=== PATIENT | male | born 1945 | race Caucasian/White ===

== ENCOUNTER → 2016-08-05 | Day surgery (SDC) | payer OTHER ==
[~2016-08-05] VITALS: Ht 177.8 cm; Wt 95.3 kg
[~2016-08-05] MED LIST: AUGMENTIN 875 M1 TAB PO; AUGMENTIN 875875 MG PO; BEPREVE10 ML OPH; CEPHALEXIN500 M3 PO; COLACE100 MG PO; CYANOCOBAL1000 MCG/2 IM; ESCITALOPRAM10 MG PO; FINASTERIDE5 MG PO; HYDROCODONE/ACE1 TA1 PO; HYDROXYZINE HCL25 M2 PO; LEVAQUIN500 MG PO; LEVOTHYROXINE0.15 M1 PO; LEVOTHYROXINE150 MCG PO; MULTI-DAY VITA1 EACH PO; MUPIROCIN22 GM TOP; NASONEX17 GM NASB; SIMVASTATIN40 M1 PO; SIMVASTATIN40 MG PO; TAMIFLU 75MG75 MG PO; TESSALON PERLE100 M1 PO; TESSALON PERLE100 MG PO; TOBRAMYCIN 5 ML5 ML OD; VIBRAMYCIN100 MG PO; VITAMIN D250000 UNIT PO; ZITHROMAX250 M2 PO; ZOFRAN 4 MG TABL4 MG PO
--- NOTE | 2016-08-07 11:45 | Operative Report ---
Operative/Inv Procedure Report Surgery Date: 08/05/16 Name of Procedure: Preperitoneal laparoscopic mesh repair of left inguinal hernia Pre-Operative Diagnosis: Lifting all hernia Post-Operative Diagnosis: Same, direct Estimated Blood Loss: scant Surgeon/Sybase Developer: JACKIE OLMEDO,ELLIOT SHI Anesthesia: general endotracheal tube Operative/Procedure Note Note: Patient was positioned supine on the table. After successful induction of general anesthesia the inguinal and surrounding areas were clipped prepped and draped in the usual sterile fashion. After injection of local anesthetic at the bottom of the umbilicus off the midline to the left, a 1 1/2 cm curved incision was made with a 15 blade, then deepened through Jose Francisco's fascia, sweeping off the rectus sheath. A horizontal 1-1/2 cm incision was made between the fibers, elevating these edges with 0 Vicryl stay sutures. Then retracting the muscle laterally, clearing off the posterior rectus sheath, this space is developed down the midline to the pubis sequentially, with an S retractor, a peanut dissector, then the balloon-camera device, inflating it 30-40 pumps while watching how it opens up the space, keeping the epigastrics up. The balloon is then replaced with a 10 mm Nava trocar, inserted, shortened, and secured with the stay sutures, gas turned on to 12 not 15 mm. Then two 5 mm trochars are inserted in the midline just below the camera, spaced by approximately 3 cm. Using mostly blunt dissection with peanuts to define the anatomy, first Ricardo's ligament is swept off medially, checking the medial spaces, direct and femoral. There was an obvious direct defect. Then briefly skipping over the area of the iliac fat pad, we developed the iliopubic tract out laterally to the iliac crest. Then we returned to the area of the fat pad where the lip of peritoneum and the cord structures are adherent, coursing up into an attenuated deep ring. The cord structures form a triangle with the vas approaching medially and the main vessels approaching laterally, with the apex at the deep ring. The cord is also from the underlying iliac fat. Once the hernia sac is from the cord structures down to the base of this "triangle," a Parietex sided mesh with the suture, is marked and stuffed down the camera trocar, then unfurled in a systematic fashion, first with the smaller leaflet passing behind the cord structures, until the flap covers the epigastrics, covering the deep ring, then the larger leaflet is released from the suture, double-covering the smaller one, but also extends laterally out to the iliac crest, medially over Ricardo's ligament, and superiorly towards the camera. There is a third part of the mesh, that covers the iliac fat pad like a skirt. The mesh was adjusted back and forth so that the keyhole is centered around the cord, lays flat and the edges are not curling. A trial run of letting the gas escape a little bit to see how the mesh would lay as the peritoneum comes back down is done, then when we' re satisfied, we let rest of the gas escape, pulling out the instruments and trochars. The fascia is closed with a ahmhys-qe-feuuw 0 Vicryl suture, tying the stay sutures on top. Then we closed the 3 skin incisions with interrupted 4-0 Monocryl, 3 for the umbilical, one each for the smaller ones, followed by Mastisol, Steri-Strips and Band-Aids. Overall estimated blood loss was minimal, lap and sponge counts were correct, wound expectancy was clean, IV fluids crystalloid, complications none, patient tolerated the procedure well, did not significantly raphael during extubation and was returned to the recovery room in satisfactory condition.
== END ==
LOC: STS 06-24 07:00
DX: K40.90 Unilateral inguinal hernia, without obstruction or gangrene, not specified as recurrent (principal); E03.9 Hypothyroidism, unspecified
CPT/HCPCS: C1781; C9399; J0131; J0690; J1885; J2250; J2405

== ENCOUNTER 2016-08-08 13:18 | Emergency (ER) | payer OTHER ==
[~2016-08-08 13:18] MED LIST changes: -BEPREVE10 ML OPH; -CEPHALEXIN500 M3 PO; -CYANOCOBAL1000 MCG/2 IM; -LEVOTHYROXINE150 MCG PO; -MULTI-DAY VITA1 EACH PO; -MUPIROCIN22 GM TOP; -NASONEX17 GM NASB; -SIMVASTATIN40 M1 PO; -TESSALON PERLE100 M1 PO; -VIBRAMYCIN100 MG PO; -VITAMIN D250000 UNIT PO; -ZITHROMAX250 M2 PO
--- NOTE | 2016-08-08 14:37 | ED GI/GU/ABDOMINAL COMPLAINT ---
History of Present Illness General Chief Complaint: Abdominal Pain/Flank Pain Stated Complaint: CONSTIPATION/ABD PAIN Vital Signs & Intake/Output Vital Signs & Intake/Output Vital Signs Date Time Temp Pulse Resp B/P Pulse O2 O2 Flow FiO2 Ox Delivery Rate 08/08 1325 97.2 68 20 171/89 98 Room Air Allergies Coded Allergies: NO KNOWN ALLERGIES (10/09/15) Reconcile Medications Azithromycin (Zithromax) 250 MG TABLET 1 DP PO AD uri 2 the first day followed by 1 for days 2-5 Benzonatate (Tessalon Perle) 100 MG CAPSULE 1 CAP PO TID PRN cough Levothyroxine Sodium 0.15 MG TAB 1 TAB PO DAILY AC THYROID (Reported) Simvastatin 40 MG TABLET 1 TAB PO QPM CHOLESTEROL (Reported) Triage Note: PT PRESENTS TO ER WITH ABDOMINAL PAIN AND C/O OF CONSTIPATION. PT STATES HE HAS NOT HAD A BOWEL MOVEMENT SINCE THURSDAY BUT ON THURSDAY HERNIA SURGERY AND WAS TAKEN VICODIN FOR THE PAIN. PT STATES HE HAS TAKEN MILK OF MAGNESIA, STOOL SOFTNER, AND PRUNE JUICE WITH NO BOWEL MOVEMENT. (JANI OLMEDO,JOSSELINE) General Source: patient Exam Limitations: no limitations Triage Nurses Notes Reviewed? yes HPI: This is a 71-year-old male presented to the [facility] emergency department with chief complaint of constipation since this Thursday. Of note patient was operated on 08/05/2016-laparoscopic mesh repair of left inguinal hernia as an outpatient by Panchito Lewis MD. He was discharged on the same day after surgery. He was given Vicodin tablets which he took once and he was on Tylenol tablets since then. He reports severe constipation for 5 days. Couldnt pass his bowels. He took lkvf-pna-qytruby stools softeners with no relief. He took milk of magnesia. However couldnt pass any bowels. He even took prune juice. He denied any abdominal pain, nausea, vomiting, fever or chills. He reported mild discomfort and bloating sensation. He is not passing gases. The surgical site was clean with no drainage, no pus, no infection. (LALO OLMEDO,[facility]) Past History Travel History Traveled to [place] past 21 day No Medical History Neurological: NONE EENT: cataracts Cardiovascular: hyperlipidemia Respiratory: NONE Gastrointestinal: NONE Hepatic: NONE Renal: ENLARGED PROSTATE Musculoskeletal: TIBIA FX TORN ROTATOR CUFF Psychiatric: depression Endocrine: hypothyroidism Blood Disorders: NONE Cancer(s): NONE History of MRSA: No History of VRE: No History of CDIFF: No Surgical History Surgical History: non-contributory Psychosocial History What is your primary language Spanish Tobacco Use: Never used (JANI OLMEDO,JOSSELINE) Medical History Any Pertinent Medical History? see below for history Family History Hx Contributory? Yes (CONSTANCE MAY MD) Review of Systems Review of Systems Constitutional: Denies: chills, diaphoresis, fever, malaise, weakness, unexplained weight loss. Respiratory: Denies: cough, orthopnea, short of breath. Cardiovascular: Denies: chest pain, edema, palpitations. GI: Reports: abdominal pain, bloating, constipation, distention. Denies: diarrhea, melena, nausea, vomiting. Genitourinary: Denies: frequency, urgency. Musculoskeletal: Denies: back pain, joint pain. (CONSTANCE MAY MD) Physical Exam Physical Exam General Appearance: well developed/nourished, no apparent distress, alert, awake Head: atraumatic, normal appearance Neck: normal inspection Respiratory: normal breath sounds Cardiovascular: regular rate/rhythm Gastrointestinal: normal bowel sounds, soft, non-tender Core Measures ACS in differential dx? No Severe Sepsis Present: No Septic Shock Present: No (CONSTANCE MAY MD) Progress Radiology Impression: PATIENT: YVON RICE PRESENT AGE: 71 PATIENT ACCOUNT NO: [id number] : 43 LOCATION: [facility] ORDERING PHYSICIAN: JOSSELINE GUNTER MD SERVICE DATE: 08/08/16 EXAM TYPE: RAD - XRY-ABD MULTI VIEW W/PA CHEST EXAMINATION: XR ABDOMEN WITH PA CHEST CLINICAL INDICATION: Constipation COMPARISON: None. TECHNIQUE: PA chest. Flat and upright abdomen FINDINGS: Small to moderate volume of stool throughout colon. No dilated bowel loop. No significant air-fluid levels on the upright view. Nonobstructive bowel pattern. No intra-abdominal radiopaque nature calculi. Multiple calcified fecaliths of the lower pelvis. PA view of chest is normal. Lungs are clear. No pulmonary vascular congestion or pleural effusion. Cardiac and mediastinal contours are normal. IMPRESSION: Small to moderate volume of stool scattered throughout colon. Nonobstructive bowel pattern. DICTATED BY: LAM MCNALLY MD DATE/TIME DICTATED:08/08/161634 PRODUCT SUPPORT ENGINEER :LUIS DATE/TIME TRANSCRIBED:08/08/161634 CONFIDENTIAL, DO NOT COPY WITHOUT APPROPRIATE AUTHORIZATION. <Electronically signed in Other Vendor System> SIGNED BY: LAM MCNALLY MD 08/08/16 1642 (JOSSELINE GUNTER MD) Differential Diagnosis: bowel obstruction, SBO Plan of Care: Current Medications Sig/Enriqueta Start time Last Medication Dose Stop Time Status Admin Polyethylene Glycol 1 GAL ONCE ONE 08/08 1700 AC (Golytely Liq 4000 08/08 1701 Ml) Diagnostic Imaging: Viewed by Me: Radiology Read. Discussed w/RAD: Radiology Read. Radiology Impression: no acute abnormality Initial ED EKG: none (CONSTANCE MAY MD) Departure Departure Time of Disposition: 1701 Condition: Stable Referrals: JOSE MANUEL BARNETT MD (PCP/Family) Departure Forms: Customer Survey General Discharge Information PA/ACCOUNT AUDITOR Co-Sign Statement Statement: ED Attending supervision documentation- [X] I saw and evaluated the patient. I have also reviewed all the pertinent lab results and diagnostic results. I agree with the findings and the plan of care as documented in the PA's/ACCOUNT AUDITOR's documentation. [X] I have reviewed the ED Record and agree with the PA's/ACCOUNT AUDITOR's documentation. [] Additions or exceptions (if any) to the PAs/ACCOUNT AUDITOR's note and plan are summarized below: [] (JOSSELINE GUNTER MD) Departure Disposition: HOME OR SELF CARE Clinical Impression Primary Impression: Constipation Additional Instructions: Clear liquid diet and broth Low residue diet Follow-up with the Panchito Lewis MD. GoLABIODUNLY-take one cup per hour prune juice Return to emergency room if constipation persists for next 48 hours, abdominal distention, nausea, vomiting. (CONSTANCE MAY MD) Critical Care Note Critical Care Note Critical Care Time: 30-74 min (CONSTANCE MAY MD) ED Attending Observation Initial Observation Note: I have seen and personally examined YVON RICE on 08/08/16 at 1657. I agree with the current emergency department documentation. The disposition (admission or discharge) is uncertain at this time, he needs a period of observation for the following reason(s): The ED Nurse caring for this patient has been personally informed as to what the patient is being observed for. Observation Re-Evaluation: I have reevaluated YVON RICE on 08/08/16 at 1700. The physical findings that support the continued need to observe this patient include . (LALO OLMEDO,[facility])
--- NOTE | 2016-08-08 16:42 | RADIOLOGY REPORT ---
EXAMINATION: XR ABDOMEN WITH PA CHEST CLINICAL INDICATION: Constipation COMPARISON: None. TECHNIQUE: PA chest. Flat and upright abdomen FINDINGS: Small to moderate volume of stool throughout colon. No dilated bowel loop. No significant air-fluid levels on the upright view. Nonobstructive bowel pattern. No intra-abdominal radiopaque nature calculi. Multiple calcified fecaliths of the lower pelvis. PA view of chest is normal. Lungs are clear. No pulmonary vascular congestion or pleural effusion. Cardiac and mediastinal contours are normal. IMPRESSION: Small to moderate volume of stool scattered throughout colon. Nonobstructive bowel pattern.
[2016-08-08 17:07] VITALS: BP 136/85
== END 2016-08-08 17:08 ==
LOC: ERH 13:18
DX: K59.00 Constipation, unspecified (principal)
CPT/HCPCS: 74022

== ENCOUNTER 2016-08-09 00:58 | Emergency (ER) | payer OTHER ==
[~2016-08-09] VITALS: Ht 210.8 cm; Wt 94.8 kg
--- NOTE | 2016-08-09 01:13 | ED GI/GU/ABDOMINAL COMPLAINT ---
History of Present Illness General Chief Complaint: General Adult Stated Complaint: C/O CONSTIPATION S/P "PROCEDURE" 3 DAYS AGO Source: patient Exam Limitations: no limitations Vital Signs & Intake/Output Vital Signs & Intake/Output Vital Signs Date Time Temp Pulse Resp B/P Pulse O2 O2 Flow FiO2 Ox Delivery Rate 08/09 0112 99.5 70 20 146/85 95 Room Air Allergies Coded Allergies: NO KNOWN ALLERGIES (10/09/15) Reconcile Medications Levothyroxine Sodium 0.15 MG TAB 1 TAB PO DAILY AC THYROID (Reported) Simvastatin 40 MG TABLET 1 TAB PO QPM CHOLESTEROL (Reported) Triage Note: "I HAVEN'T MOVED MY BOWELS SINCE THURSDAY" PT STATES HE HAS BEEN TAKING STOOL SOFTENERS AND NO PROGRESS. PT WAS HERE YESTERDAY FOR SAME REASON AND WAS GIVEN GOLYTELY. PT DENIES ABD PAIN JUST SOME SORENESS Triage Nurses Notes Reviewed? yes Onset: Gradual Duration: day(s): Timing: recent history Quality/Severity: cramping Location: generalized abdomen Radiation: no radiation Activities at Onset: post-op Prior Abdominal Problems: recent surgery Modifying Factors: Worsens With: other (constipation). Associated Symptoms: abdominal pain HPI: 71 yo gentleman pod #3 of a laparoscopic left inguinal hernia repair, presents with abdominal distension, discomfort, and constipation. He notes that he was seen yesterday in the ED, had benign xrays, and was sent home with [employer]. "I drank half of the golytely and I still haven't gone to the bathroom... I've tried everything... milk of magnesia, prune juice, laxative pills... everything." Past History Medical History Any Pertinent Medical History? see below for history Neurological: NONE EENT: cataracts Cardiovascular: hyperlipidemia Respiratory: NONE Gastrointestinal: NONE Hepatic: NONE Renal: ENLARGED PROSTATE Musculoskeletal: TIBIA FX TORN ROTATOR CUFF Psychiatric: depression Endocrine: hypothyroidism Blood Disorders: NONE Cancer(s): NONE History of MRSA: No History of VRE: No History of CDIFF: No Surgical History Surgical History: non-contributory Psychosocial History What is your primary language Czech Family History Hx Contributory? No Review of Systems Review of Systems Constitutional: Reports: no symptoms. EENTM: Reports: no symptoms. Respiratory: Reports: no symptoms. Cardiovascular: Reports: no symptoms. GI: Reports: no symptoms. Genitourinary: Reports: no symptoms. Musculoskeletal: Reports: no symptoms. Skin: Reports: no symptoms. Neurological/Psychological: Reports: no symptoms. Hematologic/Endocrine: Reports: no symptoms. Immunologic/Allergic: Reports: no symptoms. All Other Systems: Reviewed and Negative Physical Exam Physical Exam General Appearance: well developed/nourished, no apparent distress Head: atraumatic, normal appearance Eyes: Bilateral: normal appearance. Ears, Nose, Throat, Mouth: hearing grossly normal Neck: normal inspection, supple, full range of motion, normal alignment Respiratory: normal breath sounds, chest non-tender, no respiratory distress, quiet respiration, lungs clear Cardiovascular: regular rate/rhythm Gastrointestinal: normal bowel sounds, soft, mild distension, mild tenderness around umbilical and lower abdominal surgical scars which appear clean, dry, intact. Core Measures ACS in differential dx? No Severe Sepsis Present: No Septic Shock Present: No Progress Differential Diagnosis: bowel obstruction, constipation Plan of Care: Orders Procedure Date/time Status Add-on Test (ER Only) 08/09 125 Active LACTIC ACID 08/09 119 Complete TROPONIN LEVEL 08/09 104 Complete LIPASE 08/09 104 Complete HEPATIC FUNCTION PANEL 08/09 104 Complete CBC WITHOUT DIFFERENTIAL 08/09 104 Complete BASIC METABOLIC PANEL 08/09 104 Complete AMYLASE 08/09 104 Complete EKG 08/09 104 Active Laboratory Tests 08/09/16 0120: Anion Gap 9, Estimated GFR > 60, BUN/Creatinine Ratio 10.0, Glucose 100 H, Lactic Acid 0.7, Calcium 9.2, Total Bilirubin 1.2, Direct Bilirubin 0.4, AST 38, ALT 43, Alkaline Phosphatase 74, Troponin I 0.01, Total Protein 7.7, Albumin 4.5 , Amylase 36, Lipase 49, CBC w Diff NO MAN DIFF REQ, RBC 4.30 L, MCV 89.8, MCH 31.0, RDW 13.4, MPV 8.4, Gran % 58.4, Lymphocytes % 22.2, Monocytes % 13.2 H, Eosinophils % 5.2 H, Basophils % 1.0, Absolute Granulocytes 3.9, Absolute Lymphocytes 1.5, Absolute Monocytes 0.9 H, Absolute Eosinophils 0.4, Absolute Basophils 0.1, PUBS MCHC 34.5 Diagnostic Imaging: Viewed by Me: CT Scan. Discussed w/RAD: CT Scan. Radiology Impression: abd/pelvic ct... free air consistent with recent surgery, otherwise benign. Initial ED EKG: normal axis, normal intervals, normal p-waves, normal QRS complex, normal sinus rhythm Comments: PATIENT: YVON RICE PRESENT AGE: 71 PATIENT ACCOUNT NO: [id number] : 43 LOCATION: [facility] ORDERING PHYSICIAN: EKLSEY HENDRICKSON MD SERVICE DATE: 08/09/16 EXAM TYPE: CAT - CT ABD & PELVIS W/O IV CONTRAS EXAMINATION: CT ABDOMEN AND PELVIS WITHOUT CONTRAST CLINICAL INFORMATION: Abdominal pain, recent left inguinal hernia repair COMPARISON: 10/09/2015 TECHNIQUE: Multidetector volumetric imaging was performed from the superior aspect of the liver through the pubic symphysis. Sagittal and coronal reformatted images were obtained on the technologist's workstation. DLP: 781.44 mGy-cm. FINDINGS: LUNG BASES: The visualized lung bases are unremarkable. Multiple foci of gas are noted in the pericardial fat bilaterally. LIVER, GALLBLADDER, AND BILIARY TREE: The liver is normal in size, shape, and attenuation. A subcentimeter hypoattenuating focus in segment IVb of the liver is unchanged, too small to characterize. No biliary ductal dilatation is present. The gallbladder is unremarkable with no evidence of radiopaque gallstones, gallbladder wall thickening, or obvious pericholecystic inflammatory changes. PANCREAS: Partial fatty atrophy is noted. SPLEEN: Unremarkable. ADRENAL GLANDS: Unremarkable. KIDNEYS AND URETERS: The kidneys are normal in size, shape, and attenuation. No hydronephrosis, hydroureter, or calculi seen. BLADDER: Unremarkable. GASTROINTESTINAL TRACT: A small hiatal hernia is noted. No evidence of bowel obstruction. No abnormal bowel wall thickening is seen. The appendix is suspected to be collapsed. There are multiple foci of free air in the anterior abdomen as well as tracking along the anterior abdominal wall. A few scattered foci of gas are also noted in the right retroperitoneum as well as in the right inguinal canal. ABDOMINAL WALL: Bilateral inguinal hernias, containing fat on the right and some fluid in the left. LYMPH NODES: Normal. VASCULAR: Scattered atherosclerotic calcifications are present. PELVIC VISCERA: Unremarkable. OSSEOUS STRUCTURES: Degenerative changes are noted in the spine. IMPRESSION: 1. Multiple foci of pneumoperitoneum, with gas also seen in the lower mediastinum, anterior abdominal wall, and right retroperitoneum. Per discussion with the ordering physician, patient is status post recent left inguinal hernia repair. A small amount of fluid is present in the left inguinal canal. 2. Small hiatal hernia. This was discussed with KELSEY HENDRICKSON on 08/09/2016 2:59 AM. DICTATED BY: MIRIAM MARIANO MD DATE/TIME DICTATED:08/09/16247 SAMPLING EXPERT:LUIS DATE/TIME TRANSCRIBED:08/09/16247 CONFIDENTIAL, DO NOT COPY WITHOUT APPROPRIATE AUTHORIZATION. <Electronically signed in Other Vendor System> SIGNED BY: MIRIAM MARIANO MD 08/09/16 0305 Departure Departure Disposition: HOME OR SELF CARE Condition: Stable Clinical Impression Primary Impression: Constipation Referrals: JOSE MANUEL BARNETT MD (PCP/Family) Departure Forms: Customer Survey General Discharge Information Comments pt resting comfortably in the ED. Lactic acid negative. Other labs benign. Pt safe for discharge. Close follow up encouraged.
[2016-08-09 01:32] LABS: ABSOLUTE BASOPHIL COUNT 0.1 /CUMM (0.0-0.2); ABSOLUTE EOSINOPHIL COUNT 0.4 /CUMM (0.0-0.7); ABSOLUTE GRANULOCYTE CT 3.9 /CUMM (1.4-6.5); ABSOLUTE LYMPH COUNT 1.5 /CUMM (1.2-3.4); ABSOLUTE MONOCYTE COUNT 0.9 /CUMM (0.10-0.60); EOSINOPHIL % 5.2 % (0-5); GRANULOCYTE % 58.4 % (42.2-75.2); HEMATOCRIT 38.6 % (42-52); MEAN CORPUSCULAR HGB CONC 34.5 G/DL (33.0-37.0); MEAN CORPUSCULAR VOLUME 89.8 FL (80.0-94.0); MEAN PLATELET VOLUME 8.4 FL (7.4-10.4); PLATELET COUNT 252 /CUMM (130-400); RBC DISTRIBUTION WIDTH 13.4 % (11.5-14.5); WHITE BLOOD CELL COUNT 6.8 /CUMM (4.8-10.8)
--- NOTE | 2016-08-09 03:05 | CT SCAN REPORT ---
EXAMINATION: CT ABDOMEN AND PELVIS WITHOUT CONTRAST CLINICAL INFORMATION: Abdominal pain, recent left inguinal hernia repair COMPARISON: 10/09/2015 TECHNIQUE: Multidetector volumetric imaging was performed from the superior aspect of the liver through the pubic symphysis. Sagittal and coronal reformatted images were obtained on the technologist's workstation. DLP: 781.44 mGy-cm. FINDINGS: LUNG BASES: The visualized lung bases are unremarkable. Multiple foci of gas are noted in the pericardial fat bilaterally. LIVER, GALLBLADDER, AND BILIARY TREE: The liver is normal in size, shape, and attenuation. A subcentimeter hypoattenuating focus in segment IVb of the liver is unchanged, too small to characterize. No biliary ductal dilatation is present. The gallbladder is unremarkable with no evidence of radiopaque gallstones, gallbladder wall thickening, or obvious pericholecystic inflammatory changes. PANCREAS: Partial fatty atrophy is noted. SPLEEN: Unremarkable. ADRENAL GLANDS: Unremarkable. KIDNEYS AND URETERS: The kidneys are normal in size, shape, and attenuation. No hydronephrosis, hydroureter, or calculi seen. BLADDER: Unremarkable. GASTROINTESTINAL TRACT: A small hiatal hernia is noted. No evidence of bowel obstruction. No abnormal bowel wall thickening is seen. The appendix is suspected to be collapsed. There are multiple foci of free air in the anterior abdomen as well as tracking along the anterior abdominal wall. A few scattered foci of gas are also noted in the right retroperitoneum as well as in the right inguinal canal. ABDOMINAL WALL: Bilateral inguinal hernias, containing fat on the right and some fluid in the left. LYMPH NODES: Normal. VASCULAR: Scattered atherosclerotic calcifications are present. PELVIC VISCERA: Unremarkable. OSSEOUS STRUCTURES: Degenerative changes are noted in the spine. IMPRESSION: 1. Multiple foci of pneumoperitoneum, with gas also seen in the lower mediastinum, anterior abdominal wall, and right retroperitoneum. Per discussion with the ordering physician, patient is status post recent left inguinal hernia repair. A small amount of fluid is present in the left inguinal canal. 2. Small hiatal hernia. This was discussed with KELSEY HENDRICKSON on 08/09/2016 2:59 AM.
[2016-08-09 03:41] VITALS: BP 146/84
[2016-08-10] MEDS ORDERED: ZITHROMAX250 M2 PO (22:48)
[2016-08-10] MEDS ORDERED: TESSALON PERLE100 M1 PO (22:48)
== END 2016-08-09 03:42 ==
LOC: ERH 00:58
PROVIDERS: Pediatrics
DX: K59.00 Constipation, unspecified (principal); R10.84 Generalized abdominal pain
CPT/HCPCS: 74176; 93005; 93010

== ENCOUNTER 2016-08-10 22:00 | Emergency (ER) | payer OTHER ==
[~2016-08-10] VITALS: Ht 180.3 cm; Wt 94.8 kg
[2016-08-10 22:03] VITALS: BP 188/68
--- NOTE | 2016-08-10 22:10 | ED INFLUENZA/URI COMPLAINT ---
History of Present Illness General Chief Complaint: General Adult Stated Complaint: " I DON'T FEEL GOOD,COUGHING AND BODY ACHES" Source: patient, old records Exam Limitations: no limitations Vital Signs & Intake/Output Vital Signs & Intake/Output Vital Signs Date Time Temp Pulse Resp B/P Pulse O2 O2 Flow FiO2 Ox Delivery Rate 08/103 98.5 74 18 188/68 98 Room Air Allergies Coded Allergies: NO KNOWN ALLERGIES (10/09/15) Reconcile Medications Azithromycin (Zithromax) 250 MG TABLET 1 DP PO AD uri 2 the first day followed by 1 for days 2-5 Benzonatate (Tessalon Perle) 100 MG CAPSULE 1 CAP PO TID PRN cough Levothyroxine Sodium 0.15 MG TAB 1 TAB PO DAILY AC THYROID (Reported) Simvastatin 40 MG TABLET 1 TAB PO QPM CHOLESTEROL (Reported) Triage Note: REPORTS GENERALIZED BODY ACHES AND COUGHING X 24 HRS AND WORSENING. COUGH IS NON PRODUCTIVE, DENIED FEVER. Triage Nurses Notes Reviewed? yes Onset: Abrupt Duration: day(s): (1), constant Timing: recent history Severity: mild, moderate Severity Numbers: 5 No Modifying Factors: none Associated Symptoms: cough HPI: 71-year-old male presents to emergency room complaining of a one-day history of a nonproductive cough associated generalized malaise. The patient history is significant and they had a inguinal hernia repair earlier this week. The patient has been seen here twice in the past 3 days due to constipation and abdominal pain. He states he's had a bowel movement since being discharged 2 nights ago and that this cough began this morning. He denies any shortness of breath chest pain fever chills nausea vomiting sore throat congestion or pain. No sick contacts with similar symptoms (CARISSA CARTAGENA) Past History Travel History Traveled to [place] past 21 day No Medical History Any Pertinent Medical History? see below for history Neurological: NONE EENT: cataracts Cardiovascular: hyperlipidemia Respiratory: NONE Gastrointestinal: NONE Hepatic: NONE Renal: ENLARGED PROSTATE Musculoskeletal: TIBIA FX TORN ROTATOR CUFF Psychiatric: depression Endocrine: hypothyroidism Blood Disorders: NONE Cancer(s): NONE History of MRSA: No History of VRE: No History of CDIFF: No Surgical History Surgical History: non-contributory Psychosocial History What is your primary language Malay Tobacco Use: Never used Family History Hx Contributory? No (CARISSA CARTAGENA) Review of Systems Review of Systems Constitutional: Reports: see HPI. All Other Systems: Reviewed and Negative Comments Review of systems: See HPI, All other systems negative. Constitutional, no chills no fever, no malaise HEENT: No visual changes no sore throat no congestion, no ear pain Cardiovascular: No chest pain , no palpitation , no orthopnea no ankle swelling Skin, no rashes, no change in skin Respiratory: No dyspnea cough no sputum no hemoptysis GI: No nausea no vomiting, no diarrhea,constipation : No dysuria No hematuria, no frequency, no discharge Muscle skeletal: No joint pain, no joint swelling, no back pain Neurologic: No numbness no headache Psych: No stress Heme/endocrine: No bruising no bleeding Immunology: No lymphadenopathy (CARISSA CARTAGENA) Physical Exam Physical Exam General Appearance: well developed/nourished, alert, awake, comfortable Ears, Nose, Throat: normal ENT inspection, moist mucous membrane, hearing grossly normal, Tympanic normal, pharynx normal Comments: Well-developed well-nourished person in no acute distress Head/Face: Atraumatic, no maxillary/frontal sinus tenderness, no facial swelling Eyes: PERRL, EOMI, no conjunctival injection. No nystagmus Ear:External auditory canal and Tympanic membranes clear, no erythema, no FB. Nose: atraumatic.Normal inspection Throat: Moist mucous membranes.Pharynx normal. No pharyngeal erythema/exudate seen. No stridor/drooling or assymetry. No swelling or edema. Neck: Supple, no lymphadenopathy, FROM Back: Nontender, no CVA tenderness. Full range of motion Cardiovascular: Regular rate and rhythms no murmurs rubs Respiratory: Chest nontender.There were no bony deformities, no asymmetry. No respiratory distress. Patient speaking in full complete sentences. Breath sounds clear to auscultation bilaterally: NO W/R/R Abdomen: Soft, nontender nondistended Extremity: No edema, full range of motion of extremities Neuro: Alert oriented x3, motor sensory normal,There were no obvious focal neurologic abnormalities. Skin: No appreciable rash on exposed skin, skin is warm and dry. Psych: Mood and affect is normal, memory and judgment is normal. Core Measures Severe Sepsis Present: No Septic Shock Present: No (CARISSA CARTAGENA) Progress Differential Diagnosis: influenza, pneumonia, pharyngitis, sinusitis, BRONCHITIS Plan of Care: Orders Procedure Date/time Status RAPID VIRAL INFLUENZA A 08/10 2212 Complete Chest x-ray. Motor patient speaking in full complete sentences appears in no respiratory distress at this time I discussed with him his x-ray results. Prescription for Z-Nnamdi provided Tessalon Perles for coughing advise close follow-up with his primary care physician this week patient clinically appears well he's had an extensive workup 2 nights ago including benign labs CT of the abdomen and pelvis. He's had a subsequent bowel movement since being discharged from here yesterday. Patient feels comfortable this plan he will return at anytime sooner with any concerns (CARISSA CARTAGENA) Diagnostic Imaging: Viewed by Me: Radiology Read. Discussed w/RAD: Radiology Read. Radiology Impression: PATIENT: YVON RICE PRESENT AGE: 71 PATIENT ACCOUNT NO: [id number] : 43 LOCATION: [facility] ORDERING PHYSICIAN: CARISSA SHI SERVICE DATE: 08/10/16 EXAM TYPE: RAD - XRY-CHEST XRAY, PA AND LATERAL EXAMINATION: XR CHEST CLINICAL INFORMATION: Cough COMPARISON: Chest x-ray 10/09/2015 TECHNIQUE: PA and lateral views of the chest were obtained. FINDINGS: Lungs are clear. No pulmonary vascular congestion. No infiltrate or pleural effusion. The heart size is normal. The cardiac and mediastinal contours are normal. There are multilevel degenerative changes of dorsal spine. IMPRESSION: No acute abnormality of the chest. DICTATED BY: LAM MCNALLY MD DATE/TIME DICTATED:08/10/162238 SURGICAL SPECIALIST:LUIS DATE/TIME TRANSCRIBED:08/10/162238 CONFIDENTIAL, DO NOT COPY WITHOUT APPROPRIATE AUTHORIZATION. <Electronically signed in Other Vendor System> SIGNED BY: LAM MCNALLY MD 08/10/162242 Initial ED EKG: none (CARISSA CARTAGENA) Departure Departure Time of Disposition: 2246 Disposition: HOME OR SELF CARE Condition: Stable Clinical Impression Primary Impression: Bronchitis Referrals: JOSE MANUEL BARNETT MD (PCP/Family) Additional Instructions: Follow-up with your primary care physician this week. Z-Nnamdi as directed, Tessalon Perles for cough return anytime sooner with any concerns Departure Forms: Customer Survey General Discharge Information Prescriptions: Current Visit Scripts Azithromycin (Zithromax) 1 DP PO AD #6 TAB 2 the first day followed by 1 for days 2-5 Benzonatate (Tessalon Perle) 1 CAP PO TID PRN cough #21 CAP (CARISSA CARTAGENA) PA/TAR LEVELER Co-Sign Statement Statement: ED Attending supervision documentation- [] I saw and evaluated the patient. I have also reviewed all the pertinent lab results and diagnostic results. I agree with the findings and the plan of care as documented in the PA's/TAR LEVELER's documentation. x] I have reviewed the ED Record and agree with the PA's/TAR LEVELER's documentation. [] Additions or exceptions (if any) to the PAs/TAR LEVELER's note and plan are summarized below: [] (MADHAVI OLMEDO,KELSEY Wong) ED Attending Observation Initial Observation Note: I have seen and personally examined YVON RICE on 08/10/16 at 2221. I agree with the current emergency department documentation. The disposition (admission or discharge) is uncertain at this time, he needs a period of observation for the following reason(s): The ED Nurse caring for this patient has been personally informed as to what the patient is being observed for. (CARISSA CARTAGENA)
--- NOTE | 2016-08-10 22:43 | RADIOLOGY REPORT ---
EXAMINATION: XR CHEST CLINICAL INFORMATION: Cough COMPARISON: Chest x-ray 10/09/2015 TECHNIQUE: PA and lateral views of the chest were obtained. FINDINGS: Lungs are clear. No pulmonary vascular congestion. No infiltrate or pleural effusion. The heart size is normal. The cardiac and mediastinal contours are normal. There are multilevel degenerative changes of dorsal spine. IMPRESSION: No acute abnormality of the chest.
[2016-08-10] MEDS ORDERED: TESSALON PERLE100 M1 PO (22:48)
[2016-08-10] MEDS ORDERED: ZITHROMAX250 M2 PO (22:48)
== END 2016-08-10 22:56 ==
LOC: ERH 22:00
DX: J40 Bronchitis, not specified as acute or chronic (principal)
CPT/HCPCS: 87804; 87804-59

== ENCOUNTER 2016-09-14 18:38 | Emergency (ER) | payer OTHER ==
[~2016-09-14] VITALS: Ht 179.1 cm; Wt 95.3 kg
[~2016-09-14 18:38] MED LIST changes: +TESSALON PERLE100 M1 PO; +ZITHROMAX250 M2 PO
[2016-09-14 18:52] VITALS: BP 138/73
--- NOTE | 2016-09-14 19:05 | ED SKIN/ALLERGY COMPLAINT ---
History of Present Illness General Chief Complaint: Animal/Insect Bite Stated Complaint: TICK BITE Source: patient, old records Exam Limitations: no limitations Vital Signs & Intake/Output Vital Signs & Intake/Output Vital Signs Date Time Temp Pulse Resp B/P Pulse O2 O2 Flow FiO2 Ox Delivery Rate 09/14 1852 98.1 56 20 138/73 97 Room Air ED Intake and Output 09/15 0000 09/14 1200 Intake Total Output Total Balance Patient 210 lb Weight Allergies Coded Allergies: NO KNOWN ALLERGIES (09/14/16) Reconcile Medications Azithromycin (Zithromax) 250 MG TABLET 1 DP PO AD uri 2 the first day followed by 1 for days 2-5 Benzonatate (Tessalon Perle) 100 MG CAPSULE 1 CAP PO TID PRN cough Levothyroxine Sodium 0.15 MG TAB 1 TAB PO DAILY AC THYROID (Reported) Simvastatin 40 MG TABLET 1 TAB PO QPM CHOLESTEROL (Reported) Triage Note: TRIAGE: PT TO ER C/C ?TICK TO RT SIDE AFTER HIKING IN THE [employer] TODAY. Triage Nurses Notes Reviewed? yes Onset: Abrupt Duration: day(s): (1), constant Timing: single episode today Severity: mild Severity Numbers: 1 Location: torso No Modifying Factors: none Associated Symptoms: DENIES HPI: 71-year-old male presents complaining of a embedded tick to his RIGHT hip [place]. He denies pain or no modifying factors or associated symptoms no rashes to his skin. He denies any joint pain fever chills or no abdominal pain nausea vomiting diarrhea. The patient attempted to remove the tick however was unsuccessful so he came here.he states he is confident that the tick was not there yesterday. (CARISSA CARTAGENA) Past History Travel History Traveled to [place] past 21 day No Medical History Any Pertinent Medical History? 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 No (CARISSA CARTAGENA) Review of Systems Review of Systems Constitutional: Reports: see HPI. All Other Systems: Reviewed and Negative Comments Review of systems: See HPI, All other systems negative. Constitutional, no chills no fever, no malaise HEENT: no sore throat no congestion, no ear pain Cardiovascular: No chest pain , no palpitation Skin, no rashes, no change in skin Respiratory: No dyspnea no cough no sputum GI: No nausea no vomiting, no diarrhea : No dysuri Muscle skeletal: No joint pain, no back pain, no neck pain, Neurologic:, no headache Psych: No stress Heme/endocrine: No bruising no bleeding Immunology: No lymphadenopathy (CARISSA CARTAGENA) Physical Exam Physical Exam General Appearance: well developed/nourished, alert, awake Comments: Well-developed well-nourished patient in no apparent distress. HEENT: Atraumatic, extraocular motion intact Neck: Supple, FROM Back: FROM, Nontender Cardiovascular: Regular rate and rhythms no murmurs Respiratory: No respiratory distress. Patient speaking in full complete sentences. Extremities: full range of motion Neuro: Alert and oriented x3 Skin: Warm & dry;No appreciable rash on exposed skin there is a small non- engorged tick noted to the right lateral hip, there is no surrounding erythema induration or fluctuance Psych: Mood affect normal, normal memory normal judgment. (CARISSA CARTAGENA) Progress Differential Diagnosis: lyme, cellulitis Plan of Care: Current Medications Sig/Enriqueta Start time Last Medication Dose Stop Time Status Admin Doxycycline Hyclate 200 MG ONCE ONE 09/14 1914 UNVr (Vibramycin) 09/14 1915 Tick was removed in its entirety by me patient was treated prophylactically with doxycycline 200 mg. Patient tired procedure well I advised close follow-up with his primary care, return with any concerns or clinical rash fever chills difficulty both plan (CARISSA CARTAGENA) Departure Departure Time of Disposition: 1912 Disposition: HOME OR SELF CARE Condition: Stable Clinical Impression Primary Impression: Tick bite with subsequent removal of tick Referrals: JOSE MANUEL BARNETT MD (PCP/Family) Additional Instructions: You have been treated prophylactically with doxycycline status post tick bite. Keep area clean and covered bacitracin daily. Observe and check over the entire body for development of the Bullsey[place] rash return with any concerns Departure Forms: Customer Survey General Discharge Information (CARISSA CARTAGENA) PA/MILK DRIVER Co-Sign Statement Statement: ED Attending supervision documentation- [] I saw and evaluated the patient. I have also reviewed all the pertinent lab results and diagnostic results. I agree with the findings and the plan of care as documented in the PA's/MILK DRIVER's documentation. [X] I have reviewed the ED Record and agree with the PA's/MILK DRIVER's documentation. [] Additions or exceptions (if any) to the PAs/MILK DRIVER's note and plan are summarized below: [] (MADHAVI OLMEDO,KELSEY Wong) ED Attending Observation Initial Observation Note: I have seen and personally examined YVON RICE on 09/14/16 at 1930. I agree with the current emergency department documentation. The disposition (admission or discharge) is uncertain at this time, he needs a period of observation for the following reason(s): The ED Nurse caring for this patient has been personally informed as to what the patient is being observed for. (CARISSA CARTAGENA)
== END 2016-09-14 19:22 ==
LOC: ERH 18:38
DX: S70.261A Insect bite (nonvenomous), right hip, initial encounter (principal); W57.XXXA Bitten or stung by nonvenomous insect and other nonvenomous arthropods, initial encounter

== ENCOUNTER 2016-09-20 06:58 | Emergency (ER) | payer OTHER ==
[~2016-09-20] VITALS: Ht 179.1 cm; Wt 95.3 kg
[2016-09-20 07:00] VITALS: BP 152/79
[2016-09-20] MEDS ORDERED: VIBRAMYCIN100 MG PO (07:34)
--- NOTE | 2016-09-20 07:35 | ED SKIN/ALLERGY COMPLAINT ---
History of Present Illness General Chief Complaint: Animal/Insect Bite Stated Complaint: WOUND RE-CHECK S/P TICK REMOVED Source: patient, old records Exam Limitations: no limitations Vital Signs & Intake/Output Vital Signs & Intake/Output Vital Signs Date Time Temp Pulse Resp B/P Pulse O2 O2 Flow FiO2 Ox Delivery Rate / 0700 97.0 66 16 152/79 98 Room Air Allergies Coded Allergies: NO KNOWN ALLERGIES (09/14/16) Reconcile Medications Azithromycin (Zithromax) 250 MG TABLET 1 DP PO AD uri 2 the first day followed by 1 for days 2-5 Benzonatate (Tessalon Perle) 100 MG CAPSULE 1 CAP PO TID PRN cough Doxycycline Hyclate (Vibramycin) 100 MG CAPSULE 1 CAP PO BID lyme dermatitis Levothyroxine Sodium 0.15 MG TAB 1 TAB PO DAILY AC THYROID (Reported) Simvastatin 40 MG TABLET 1 TAB PO QPM CHOLESTEROL (Reported) Triage Note: STATES THAT HE HAD A TICK REMOVED FROM HIS R SIDE ABOUT 1.5 WEEKS AGO AND AREA IS ITCHY AND FEELS LIKE SOMETHING IS STILL IN THERE Triage Nurses Notes Reviewed? yes Onset: Last week Duration: day(s):, constant, continues in ED Timing: recent history Severity: mild Location: extremities Possible Factors: insect bite No Modifying Factors: none Associated Symptoms: change in skin texture, rash HPI: 8 days prior to admission patient had tick removed from right hip given 1 dose of doxycycline. He returns with ovoid rash to the site. He denies fever chills nausea vomiting diarrhea abdominal pain chest pain shortness breath headache dysuria bleeding. Past History Travel History Traveled to [place] past 21 day No Medical History Any Pertinent Medical History? 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 No Review of Systems Review of Systems Constitutional: Reports: no symptoms. EENTM: Reports: no symptoms. Respiratory: Reports: no symptoms. Cardiovascular: Reports: no symptoms. GI: Reports: no symptoms. Genitourinary: Reports: no symptoms. Musculoskeletal: Reports: no symptoms. Skin: Reports: see HPI, rash. Neurological/Psychological: Reports: no symptoms. Hematologic/Endocrine: Reports: no symptoms. Immunologic/Allergic: Reports: no symptoms. All Other Systems: Reviewed and Negative Physical Exam Physical Exam General Appearance: well developed/nourished, alert, awake, anxious, mild distress Head: atraumatic, normal appearance Eyes: Bilateral: normal appearance, PERRL, EOMI. Ears, Nose, Throat: normal pharynx, normal ENT inspection, hearing grossly normal Neck: normal inspection, supple, full range of motion Respiratory: normal breath sounds, chest non-tender, no respiratory distress, quiet respiration, lungs clear Cardiovascular: regular rate/rhythm, normal peripheral pulses, norml femoral pulses equa Peripheral Pulses: 4+ carotid (R), 4+ carotid (L) Gastrointestinal: normal bowel sounds, soft, non-tender, no organomegaly Back: normal inspection, normal range of motion, no vertebral tenderness Extremities: normal range of motion, no edema, no ligament instability Neurologic/Psych: no motor/sensory deficits, awake, alert, oriented x 3, normal gait, normal mood/affect, 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 Skin: intact, rash Skin Problem Location: lower extremities (right hip) Skin Problem Character: erythema, rash, ovoid erythematous 3 cm2 No evidence of retained foreign body Lymphatic: no anterior cervical gerald Progress Differential Diagnosis: abscess/cellulitis, allergic reaction, contact dermatitis Plan of Care: Current Medications Sig/Enriqueta Start time Last Medication Dose Stop Time Status Admin Doxycycline Hyclate 100 MG ONCE ONE 09/20 744 AC (Vibramycin) 09/20 745 Departure Departure Time of Disposition: 732 Disposition: HOME OR SELF CARE Condition: Stable Clinical Impression Primary Impression: Lyme dermatitis Referrals: JOSE MANUEL BARNETT MD (PCP/Family) Departure Forms: Customer Survey General Discharge Information Prescriptions: Current Visit Scripts Doxycycline Hyclate (Vibramycin) 1 CAP PO BID #42 CAP
== END 2016-09-20 07:38 ==
LOC: ERH 06:58
DX: A69.20 Lyme disease, unspecified (principal)

== ENCOUNTER 2016-11-23 19:41 | Emergency (ER) | payer OTHER ==
[~2016-11-23] VITALS: Ht 172.7 cm; Wt 120.2 kg
[~2016-11-23 19:41] MED LIST changes: +VIBRAMYCIN100 MG PO
[2016-11-23 19:59] VITALS: BP 124/77
[2016-11-23] MEDS ORDERED: SIMVASTATIN40 M1 PO (20:20)
[2016-11-23] MEDS ORDERED: LEVOTHYROXINE150 MCG PO (20:20)
[2016-11-23] MEDS ORDERED: VITAMIN D250000 UNIT PO (20:21)
[2016-11-23] MEDS ORDERED: CYANOCOBAL1000 MCG/2 IM (20:21)
[2016-11-23] MEDS ORDERED: BEPREVE10 ML OPH (20:22)
[2016-11-23] MEDS ORDERED: NASONEX17 GM NASB (20:22)
[2016-11-23] MEDS ORDERED: MULTI-DAY VITA1 EACH PO (20:23)
--- NOTE | 2016-11-23 20:46 | ED SKIN/ALLERGY COMPLAINT ---
History of Present Illness General Chief Complaint: General Adult Stated Complaint: "SOMETHING ON MY REAR" Source: patient Exam Limitations: no limitations Vital Signs & Intake/Output Vital Signs & Intake/Output Vital Signs Date Time Temp Pulse Resp B/P B/P Pulse O2 O2 Flow FiO2 Mean Ox Delivery Rate 11/23 1958 97.8 64 18 124/77 100 Room Air ED Intake and Output 11/24 0000 11/23 1200 Intake Total Output Total Balance Patient 265 lb Weight Weight Reported by Patient Measurement Method Allergies Coded Allergies: NO KNOWN ALLERGIES (09/14/16) Reconcile Medications Bepotastine Besilate (Bepreve) 1.5 % DROPS 1 GTT OPH DAILY BOTH EYES ( Reported) Cyanocobalamin (Vitamin B-12) (Cyanocobalamin Injection) 1,000 MCG/ML VIAL 1 ML IM Q30D SUPPLEMENT (Reported) Ergocalciferol (Vitamin D2) (Vitamin D2) 50,000 UNIT CAPSULE 1 CAP PO Q30D SUPPLEMENT (Reported) Levothyroxine Sodium 150 MCG TABLET 1 TAB PO DAILY THYROID (Reported) Mometasone Furoate (Nasonex) 50 MCG SPRAY.PUMP 2 SPRAY NASB DAILY ALLERGIES ( Reported) Multivitamin (Multi-Day Vitamins) 1 EACH TABLET 1 TAB PO DAILY SUPPLEMENT ( Reported) Simvastatin (Simvastatin*) 40 MG TABLET 1 TAB PO QPM CHOLESTEROL (Reported) Triage Note: PT TO ED FOR "SORE ON MY REAR" X "A FEW WEEKS" Triage Nurses Notes Reviewed? yes Onset: Gradual Duration: many months w/ ulceration on tailbone. Timing: single episode today Severity: mild, moderate Location: none Possible Factors: unknown Modifying Factors: Worsens With: scratching. Associated Symptoms: painful ulcer HPI: 71 yo gentleman presents with many months of an ulceration in the superior aspect of his gluteal cleft. He states he's had of there for several months. At times it resolves. At times is persistent for several months. He notes that in months past Past History Travel History Traveled to [place] past 21 day No Medical History Any Pertinent Medical History? 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 No Review of Systems Review of Systems Constitutional: Reports: no symptoms. EENTM: Reports: no symptoms. Respiratory: Reports: no symptoms. Cardiovascular: Reports: no symptoms. GI: Reports: no symptoms. Genitourinary: Reports: no symptoms. Musculoskeletal: Reports: no symptoms. Skin: Reports: no symptoms. Neurological/Psychological: Reports: no symptoms. Hematologic/Endocrine: Reports: no symptoms. Immunologic/Allergic: Reports: no symptoms. All Other Systems: Reviewed and Negative Physical Exam Physical Exam General Appearance: well developed/nourished, mild distress Head: atraumatic Eyes: Bilateral: PERRL, EOMI. Ears, Nose, Throat: normal pharynx, normal ENT inspection, hearing grossly normal Neck: normal inspection, supple Respiratory: normal breath sounds Cardiovascular: regular rate/rhythm Gastrointestinal: soft, non-tender Back: normal inspection Extremities: normal inspection, normal range of motion, no edema Neurologic/Psych: awake, alert, oriented x 3, normal mood/affect Lymphatic: no anterior cervical gerald Progress Differential Diagnosis: allergic reaction Plan of Care: pt safe for discharge. Departure Departure Disposition: HOME OR SELF CARE Condition: Stable Clinical Impression Primary Impression: Decubitus skin ulcer Referrals: JOSE MANUEL BARNETT MD (PCP/Family) Departure Forms: Customer Survey General Discharge Information Comments pt describes a painful skin ulcer at tailbone... no sign of abscess... will treat conservatively with bactroban .. 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
== END 2016-11-23 21:08 ==
LOC: ERH 19:41
DX: L89.159 Pressure ulcer of sacral region, unspecified stage (principal)

== ENCOUNTER 2016-12-12 17:29 | Emergency (ER) | payer OTHER ==
[~2016-12-12] VITALS: Ht 179.1 cm; Wt 99.8 kg
[~2016-12-12 17:29] MED LIST changes: +BEPREVE10 ML OPH; +CYANOCOBAL1000 MCG/2 IM; +LEVOTHYROXINE150 MCG PO; +MULTI-DAY VITA1 EACH PO; +NASONEX17 GM NASB; +SIMVASTATIN40 M1 PO; +VITAMIN D250000 UNIT PO
[2016-12-12 18:38] LABS: ABSOLUTE BASOPHIL COUNT 0 /CUMM (0.0-0.2); ABSOLUTE EOSINOPHIL COUNT 0.2 /CUMM (0.0-0.7); ABSOLUTE GRANULOCYTE CT 7.3 /CUMM (1.4-6.5); ABSOLUTE LYMPH COUNT 1.2 /CUMM (1.2-3.4); ABSOLUTE MONOCYTE COUNT 1.1 /CUMM (0.10-0.60); BASOPHIL % 0.4 % (0.0-2.0); EOSINOPHIL % 1.9 % (0-5); GRANULOCYTE % 74.8 % (42.2-75.2); HEMATOCRIT 37.4 % (42-52); MEAN CORPUSCULAR HGB 31.2 PG (27.0-31.0); MEAN CORPUSCULAR VOLUME 91.5 FL (80.0-94.0); MEAN PLATELET VOLUME 7.7 FL (7.4-10.4); PLATELET COUNT 227 /CUMM (130-400); RBC DISTRIBUTION WIDTH 13.6 % (11.5-14.5); RED BLOOD CELL CT 4.09 /CUMM (4.70-6.10); WHITE BLOOD CELL COUNT 9.8 /CUMM (4.8-10.8)
--- NOTE | 2016-12-12 18:43 | ED GI/GU/ABDOMINAL COMPLAINT ---
See Addendum History of Present Illness General Chief Complaint: General Adult Stated Complaint: HERNIA PRB FEVER WEAK HOT FLASHES Source: patient Exam Limitations: no limitations Vital Signs & Intake/Output Vital Signs & Intake/Output Vital Signs Date Time Temp Pulse Resp B/P B/P Pulse O2 O2 Flow FiO2 Mean Ox Delivery Rate 12/12 2100 98.6 77 18 140/79 99 Room Air 12/128 98.8 12/12 1754 102.2 12/12 1748 102.2 78 18 135/78 98 Room Air ED Intake and Output 12/13 0000 12/12 1200 Intake Total 0 Output Total Balance 0 Intake, Oral 0 Patient 220 lb Weight Allergies Coded Allergies: NO KNOWN ALLERGIES (09/14/16) Reconcile Medications Bepotastine Besilate (Bepreve) 1.5 % DROPS 1 GTT OPH DAILY BOTH EYES ( Reported) Cephalexin 500 MG CAPSULE 1 CAP PO BID ANTIBIOTIC (Reported) Cyanocobalamin (Vitamin B-12) (Cyanocobalamin Injection) 1,000 MCG/ML VIAL 1 ML IM Q30D SUPPLEMENT (Reported) Ergocalciferol (Vitamin D2) (Vitamin D2) 50,000 UNIT CAPSULE 1 CAP PO Q30D SUPPLEMENT (Reported) Levothyroxine Sodium 150 MCG TABLET 1 TAB PO DAILY THYROID (Reported) Mometasone Furoate (Nasonex) 50 MCG SPRAY.PUMP 2 SPRAY NASB DAILY ALLERGIES ( Reported) Multivitamin (Multi-Day Vitamins) 1 EACH TABLET 1 TAB PO DAILY SUPPLEMENT ( Reported) Mupirocin 2 % OINT...G. 1 FRANKI TOP TID BUTTOCKS (Reported) apply to affected area(s) Simvastatin (Simvastatin*) 40 MG TABLET 1 TAB PO QPM CHOLESTEROL (Reported) Triage Note: PT STATES THAT HE HAS BEEN HAVING DIFFUSE ABD PAIN AND NAUSEA SINCE YESTERDAY, STATES THAT HE FEELS WEAK, FEBRILE WITH TEMP 102.2, DENIES CP. HAS HISTORY OF HERNIA REPAIR 5 MONTHS AGO. PT STATES THAT HE IS UNSURE IF HE HAS STOMACH BUG. Triage Nurses Notes Reviewed? yes Onset: Gradual Duration: constant Timing: recent history Quality/Severity: moderate Severity Numbers: 5 Location: generalized abdomen Radiation: no radiation Activities at Onset: none HPI: Patient is a 71-year-old male with a past medical history of hyperlipidemia, BPH, and hypothyroidism who presents emergency room saying that yesterday 24 hours ago he had a gradual onset of not feeling well chills tactile fevers and decreased by mouth intake and abdominal pain. Patient states that the abdominal pain has improved prior to arrival. 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 Symptoms however began yesterday prior to antibiotics. Patient is able tolerate by mouth. Denies any chest pain cough shortness of breath arm pain jaw pain nausea vomiting. Patient does state that he has increased regnancy of urination with no dysuria no hematuria. Patient did have a bowel movement today noted to be normal brown formed stool no blood no melena noted. (CARISSA GRIGGS) Past History Travel History Traveled to [place] past 21 day No Medical History Any Pertinent Medical History? 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 No (CARISSA GRIGGS) Review of Systems Review of Systems Constitutional: Reports: see HPI, chills, fever. EENTM: Reports: no symptoms. Respiratory: Reports: no symptoms. Cardiovascular: Reports: no symptoms. GI: Reports: see HPI, abdominal pain. Genitourinary: Reports: see HPI. Musculoskeletal: Reports: no symptoms. Skin: Reports: no symptoms. Neurological/Psychological: Reports: no symptoms. Hematologic/Endocrine: Reports: no symptoms. Immunologic/Allergic: Reports: no symptoms. All Other Systems: Reviewed and Negative (CARISSA GRIGGS) Physical Exam Physical Exam General Appearance: no apparent distress, alert Gastrointestinal: normal bowel sounds, soft, LEFT QUADRANT ABDOMINAL PAIN NO RIGHT LOWER QUADRANT PAIN Comments: Well-developed well-nourished Neck: Supple, no lymphadenopathy, normal range of motion without pain or tenderness Back: Nontender, no CVA tenderness. Cardiovascular: Regular rate and rhythms no murmurs rubs or gallops, normal JVP Respiratory: Chest nontender. No respiratory distress.breath sounds clear to auscultation bilaterally Extremity: No edema, no calf tenderness to palpation, normal and equal pulses. Neuro: Alert oriented x3, motor sensory normal, Skin: No appreciable rash on exposed skin, skin is warm and dry. Psych: Mood and affect is normal, memory and judgment is normal. Core Measures ACS in differential dx? No Severe Sepsis Present: No Septic Shock Present: No (MANDY SHI,CARISSA) Progress Differential Diagnosis: AAA, AMI, appendicitis, biliary colic, bowel obstruction , colon cancer, cholecystitis, diverticulitis, epididymitis, esophageal varices, gastritis, hepatitis, hernia, hemorrhoids, ischemic bowel, inflamm bowel dis, Gabriela-Soto tear, orchitis, pancreatitis, prostatitis, peptic ulcer, PUD/GERD, perforated viscous, pyelonephritis, SBO, STD, testicular torsion, ureterolithiasis, urinary retention, urethritis, UTI/pyelo Plan of Care: Orders Procedure Date/time Status URINALYSIS 12/12 185 Complete BLOOD CULTURE 12/12 184 Active Add-on Test (ER Only) 12/12 184 Active LYME TITRE 12/12 183 Active LIPASE 12/12 183 Complete AMYLASE 12/12 183 Complete BLOOD CULTURE 12/12 1753 Active TROPONIN LEVEL 12/12 175 Complete LACTIC ACID 12/12 175 Complete COMPREHENSIVE METABOLIC PANEL 12/12 175 Complete CBC WITHOUT DIFFERENTIAL 12/12 1752 Complete EKG 12/12 1752 Active Laboratory Tests 12/12/162052: Lactic Acid Cancelled 12/12/162021: Urine Color YEL, Urine Clarity CLEAR, Urine pH 6.5, Ur Specific [place] <= 1.005 , Urine Protein NEG, Urine Ketones NEG, Urine Nitrite NEG, Urine Bilirubin NEG, Urine Urobilinogen 1.0, Ur Leukocyte Esterase NEG, Ur Microscopic SEDIMENT EXAMINED, Urine RBC 3-5, Urine WBC RARE, Ur Epithelial Cells RARE, Urine Mucus FEW, Urine Hemoglobin TRACE-INTACT H, Urine Glucose NEG 12/12/161829: Anion Gap 8, Estimated GFR 59 L, BUN/Creatinine Ratio 11.7, Glucose 110 H, Lactic Acid 1.4, Calcium 8.5, Total Bilirubin 1.1, AST 45, ALT 56, Alkaline Phosphatase 90, Troponin I < 0.01, Total Protein 6.7, Albumin 4.0, Globulin 2.7, Albumin/Globulin Ratio 1.5, Amylase 49, Lipase 49, CBC w Diff NO MAN DIFF REQ, RBC 4.09 L, MCV 91.5, MCH 31.2 H, RDW 13.6, MPV 7.7, Gran % 74.8, Lymphocytes % 12.1 L, Monocytes % 10.8 H, Eosinophils % 1.9, Basophils % 0.4, Absolute Granulocytes 7.3 H, Absolute Lymphocytes 1.2, Absolute Monocytes 1.1 H, Absolute Eosinophils 0.2, Absolute Basophils 0, PUBS MCHC 34.0, Lyme Disease Antibody Pending Microbiology 12/12 1932 BLOOD: Blood Culture - RECD 12/12 1829 BLOOD: Blood Culture - RECD Patient on initial examination was noted to have generalized abdominal tenderness however all other physical exam was unremarkable. CT scan was unremarkable for acute findings as was chest x-ray and urine. Patient has resolution of fever after IV fluid resuscitation and Tylenol. At this time there is no clear etiology of patient's fever and his symptoms. Patient also states that he had significant improvement of his symptoms with above medications. Upon discharge patient looks well no apparent distress. I trunk advised patient to return to emergency room if symptoms worsen and to follow-up with his primary care doctor. Urine culture and blood cultures pending (MANDY HSI,CARISSA) Diagnostic Imaging: Viewed by Me: Radiology Read, CT Scan. Initial ED EKG: normal p-waves, normal QRS complex Comments: PATIENT: YVON RICE PRESENT AGE: 71 PATIENT ACCOUNT NO: [id number] : 43 LOCATION: [facility] ORDERING PHYSICIAN: CARISSA SHI SERVICE DATE: 12/12/16 EXAM TYPE: RAD - XRY-PORTABLE CHEST XRAY EXAMINATION: XR PORTABLE CHEST CLINICAL INFORMATION: Fever. COMPARISON: Chest x-ray 08/10/2016 TECHNIQUE: Portable frontal view of the chest was obtained. 8:32 PM FINDINGS: Lungs are clear. No pulmonary vascular congestion. No infiltrate or pleural effusion. The heart size is normal. The cardiac and mediastinal contours are normal. There are multilevel degenerative changes of dorsal spine. IMPRESSION: Unremarkable examination. DICTATED BY: LAM MCNALLY MD DATE/TIME DICTATED:12/12/16 / PATIENT: YVON RICE PRESENT AGE: 71 PATIENT ACCOUNT NO: [id number] : 43 LOCATION: [facility] ORDERING PHYSICIAN: CARISSA SHI SERVICE DATE: 12/12/16 EXAM TYPE: CAT - CT ABD & PELVIS W IV CONTRAST EXAMINATION: CT ABDOMEN AND PELVIS WITH CONTRAST CLINICAL INFORMATION: Abdominal pain. Left lower quadrant pain. Fever. COMPARISON: 08/09/2016 TECHNIQUE: Multidetector volumetric imaging was performed of the abdomen and pelvis before and after the IV administration of 94 mL of Optiray 320 intravenous contrast. Sagittal and coronal reformatted images were obtained on the technologist's workstation. DLP: 568 mGy-cm FINDINGS: LUNG BASES: There is partial visualization of a 0.5 cm right middle lobe pulmonary nodule on image . This area is not included on prior abdominal CTs. The visualized cardiac structures are unremarkable. LIVER, GALLBLADDER, AND BILIARY TREE: The liver is normal in size, shape, and attenuation. Subcentimeter hypoattenuating foci in the liver are unchanged, too small to fully characterize. No biliary ductal dilatation is present. The gallbladder is unremarkable with no evidence of radiopaque gallstones, gallbladder wall thickening, or obvious pericholecystic inflammatory changes. PANCREAS: Fatty atrophy of the pancreatic head. The pancreas is otherwise unremarkable. SPLEEN: Unremarkable. ADRENAL GLANDS: Unremarkable. KIDNEYS AND URETERS: The kidneys are normal in size, shape, and attenuation. No hydronephrosis, hydroureter, or calculi seen. No perinephric stranding. BLADDER: Unremarkable. GASTROINTESTINAL TRACT: The stomach and small bowel are unremarkable. No dilated loops of bowel or evidence of obstruction. Evaluation of the cecum and ascending colon is limited due to lack of distention. No additional evidence for colonic wall thickening or inflammation.. ABDOMINAL WALL: Small fat-containing inguinal hernias. LYMPH NODES: Normal. VASCULAR: Mild atherosclerotic calcifications. PELVIC VISCERA: The prostate and seminal vesicles are unremarkable. OSSEOUS STRUCTURES: No acute or suspicious osseous abnormalities. Multilevel degenerative changes in the spine. IMPRESSION: No acute findings of the abdomen or pelvis. No acute inflammatory changes. 0.5 cm right middle lobe pulmonary nodule is partially visualized. Prior abdominal CTs did not include this area in the [id number]. If this is a high-risk patient, 12 month follow-up chest CT could be considered. DICTATED BY: MATTHEW OLMEDO,SARBJIT (CARISSA GRIGGS) Departure Departure Disposition: HOME OR SELF CARE Condition: Stable Clinical Impression Primary Impression: Fever Secondary Impressions: Abdominal pain, Pulmonary nodule Referrals: JOSE MANUEL BARNETT MD (PCP/Family) Additional Instructions: As discussed continue home medications as directed and continue THE previously prescribed Keflex as directed. If symptoms worsen return to emergency room. Begin [id number] Tylenol for fevers. Follow-up with primary care doctor on Thursday if no better. Begin drinking plenty water for hydration Please follow-up with your primary care doctor for repeat images of the pulmonary nodule please provide the primary care doctor with copies of CT scan report Departure Forms: Customer Survey General Discharge Information (CARISSA GRIGGS) PA/[employer] Co-Sign Statement Statement: ED Attending supervision documentation- [] I saw and evaluated the patient. I have also reviewed all the pertinent lab results and diagnostic results. I agree with the findings and the plan of care as documented in the PA's/[employer]'s documentation. [x] I have reviewed the ED Record and agree with the PA's/[employer]'s documentation. [] Additions or exceptions (if any) to the PAs/[employer]'s note and plan are summarized below: [] (MADHAVI OLMEDO,KELSEY Wong)
[2016-12-12] MEDS ORDERED: MUPIROCIN22 GM TOP (19:21)
[2016-12-12] MEDS ORDERED: CEPHALEXIN500 M3 PO (19:21)
--- NOTE | 2016-12-12 20:12 | CT SCAN REPORT ---
EXAMINATION: CT ABDOMEN AND PELVIS WITH CONTRAST CLINICAL INFORMATION: Abdominal pain. Left lower quadrant pain. Fever. COMPARISON: 08/09/2016 TECHNIQUE: Multidetector volumetric imaging was performed of the abdomen and pelvis before and after the IV administration of 94 mL of Optiray 320 intravenous contrast. Sagittal and coronal reformatted images were obtained on the technologist's workstation. DLP: 568 mGy-cm FINDINGS: LUNG BASES: There is partial visualization of a 0.5 cm right middle lobe pulmonary nodule on image 1/. This area is not included on prior abdominal CTs. The visualized cardiac structures are unremarkable. LIVER, GALLBLADDER, AND BILIARY TREE: The liver is normal in size, shape, and attenuation. Subcentimeter hypoattenuating foci in the liver are unchanged, too small to fully characterize. No biliary ductal dilatation is present. The gallbladder is unremarkable with no evidence of radiopaque gallstones, gallbladder wall thickening, or obvious pericholecystic inflammatory changes. PANCREAS: Fatty atrophy of the pancreatic head. The pancreas is otherwise unremarkable. SPLEEN: Unremarkable. ADRENAL GLANDS: Unremarkable. KIDNEYS AND URETERS: The kidneys are normal in size, shape, and attenuation. No hydronephrosis, hydroureter, or calculi seen. No perinephric stranding. BLADDER: Unremarkable. GASTROINTESTINAL TRACT: The stomach and small bowel are unremarkable. No dilated loops of bowel or evidence of obstruction. Evaluation of the cecum and ascending colon is limited due to lack of distention. No additional evidence for colonic wall thickening or inflammation.. ABDOMINAL WALL: Small fat-containing inguinal hernias. LYMPH NODES: Normal. VASCULAR: Mild atherosclerotic calcifications. PELVIC VISCERA: The prostate and seminal vesicles are unremarkable. OSSEOUS STRUCTURES: No acute or suspicious osseous abnormalities. Multilevel degenerative changes in the spine. IMPRESSION: No acute findings of the abdomen or pelvis. No acute inflammatory changes. 0.5 cm right middle lobe pulmonary nodule is partially visualized. Prior abdominal CTs did not include this area in the [id number]. If this is a high-risk patient, 12 month follow-up chest CT could be considered.
--- NOTE | 2016-12-12 20:50 | RADIOLOGY REPORT ---
EXAMINATION: XR PORTABLE CHEST CLINICAL INFORMATION: Fever. COMPARISON: Chest x-ray 08/10/2016 TECHNIQUE: Portable frontal view of the chest was obtained. 8:32 PM FINDINGS: Lungs are clear. No pulmonary vascular congestion. No infiltrate or pleural effusion. The heart size is normal. The cardiac and mediastinal contours are normal. There are multilevel degenerative changes of dorsal spine. IMPRESSION: Unremarkable examination.
[2016-12-12 21:00] VITALS: BP 140/79
== END 2016-12-12 21:49 ==
LOC: ERH 17:29
PROVIDERS: Emergency Medicine
DX: R91.1 Solitary pulmonary nodule (principal); R10.32 Left lower quadrant pain; R50.9 Fever, unspecified
CPT/HCPCS: 86618; 74177; 81001; 87040; 93005; 93010; 96360

== ENCOUNTER 2016-12-16 16:08 | Emergency (ER) | payer OTHER ==
[~2016-12-16] VITALS: Ht 177.8 cm; Wt 97.5 kg
[~2016-12-16 16:08] MED LIST changes: +CEPHALEXIN500 M3 PO; +MUPIROCIN22 GM TOP
--- NOTE | 2016-12-16 17:31 | ED GENERAL ADULT ---
History of Present Illness General Chief Complaint: General Adult Stated Complaint: NOT FEELING WELL, PAIN TO L ARM, DIARRHEA Source: patient, old records Exam Limitations: no limitations Allergies Coded Allergies: NO KNOWN ALLERGIES (09/14/16) Reconcile Medications Bepotastine Besilate (Bepreve) 1.5 % DROPS 1 GTT OPH DAILY BOTH EYES ( Reported) Cephalexin 500 MG CAPSULE 1 CAP PO BID ANTIBIOTIC (Reported) Cyanocobalamin (Vitamin B-12) (Cyanocobalamin Injection) 1,000 MCG/ML VIAL 1 ML IM Q30D SUPPLEMENT (Reported) Ergocalciferol (Vitamin D2) (Vitamin D2) 50,000 UNIT CAPSULE 1 CAP PO Q30D SUPPLEMENT (Reported) Levothyroxine Sodium 150 MCG TABLET 1 TAB PO DAILY THYROID (Reported) Mometasone Furoate (Nasonex) 50 MCG SPRAY.PUMP 2 SPRAY NASB DAILY ALLERGIES ( Reported) Multivitamin (Multi-Day Vitamins) 1 EACH TABLET 1 TAB PO DAILY SUPPLEMENT ( Reported) Mupirocin 2 % OINT...G. 1 FRANKI TOP TID BUTTOCKS (Reported) apply to affected area(s) Simvastatin (Simvastatin*) 40 MG TABLET 1 TAB PO QPM CHOLESTEROL (Reported) Triage Note: PT TO ED FOR MULTIPLE COMPLAINTS, REPORTING HE WAS SEEN HERE RECENTLY FOR SAME WAS STARTED ON ABX AND IS NOW C/O DIARRHEA AFTER STARTING ABX. Triage Nurses Notes Reviewed? yes Onset: Abrupt Duration: day(s): (4) Timing: multiple episodes today Injury Environment: home Severity: mild, moderate No Modifying Factors: none Associated Symptoms: headache, weakness HPI: This is a 68-year-old male who presents via her for chief complaint of diarrhea, weakness, mild headache since Thursday. He states that he was prescribed an antibiotic on Thursday by his dip unit operator for a wound on his buttocks. The wound is been nonhealing for several months. He states that after the course of antibiotics a pint a biopsy if is not a resolved. Denies any fever or chills. Denies any nausea vomiting but has some diminished appetite. He states he just felt foggy and dizzy today. Denies any chest pain or shortness of breath. He was seen here on Thursday after his dip unit operator appointment for some abdominal discomfort. CAT scan was done which showed nothing acute. (JANI OLMEDO,JOSSELINE) Vital Signs & Intake/Output Vital Signs & Intake/Output Vital Signs Date Time Temp Pulse Resp B/P B/P Pulse O2 O2 Flow FiO2 Mean Ox Delivery Rate 12/17 2031 96.4 58 20 129/66 97 Room Air 12/16 1856 97.0 54 20 121/58 97 Room Air 12/16 1645 98.4 58 18 126/76 98 Room Air Past History Travel History Traveled to [place] past 21 day No Medical History Any Pertinent Medical History? 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 No (JANI OLMEDO,JOSSELINE) Review of Systems Review of Systems Constitutional: Reports: malaise, weakness. Denies: chills, fever. EENTM: Reports: no symptoms. Respiratory: Denies: cough, short of breath. Cardiovascular: Denies: chest pain. GI: Reports: abdominal pain, diarrhea, nausea. Denies: vomiting. Genitourinary: Denies: dysuria, frequency, hematuria. Musculoskeletal: Reports: no symptoms. Skin: Reports: no symptoms. Neurological/Psychological: Reports: headache. Hematologic/Endocrine: Denies: bruising, bleeding, polyuria, polydipsia. Immunologic/Allergic: Denies: splenectomy. All Other Systems: Reviewed and Negative (JOSESLINE GUNTER MD) Physical Exam Physical Exam General Appearance: well developed/nourished, alert, awake, anxious, mild distress Head: atraumatic, normal appearance Eyes: Bilateral: normal appearance. Ears, Nose, Throat: normal pharynx, normal ENT inspection, hearing grossly normal Neck: normal inspection, supple, full range of motion Respiratory: normal breath sounds, chest non-tender, no respiratory distress Cardiovascular: regular rate/rhythm Peripheral Pulses: 2+ radial (R), 2+ radial (L) Gastrointestinal: normal bowel sounds, soft, non-tender Extremities: normal inspection, normal capillary refill, normal range of motion, no edema Neurologic/Psych: no motor/sensory deficits, awake, alert, oriented x 3 Skin: intact, normal color, warm/dry Core Measures ACS in differential dx? No CVA/TIA Diagnosis: No Severe Sepsis Present: No Septic Shock Present: No (JOSSELINE GUNTER MD) Progress Differential Diagnoses I considered the following diagnoses in my evaluation of the patient: [ DEHYDRATION, JOEL, C.DIFF COLITIS, MEDICATION SIDE EFFECT] Plan of Care: Orders Procedure Date/time Status TROPONIN LEVEL 12/16 1716 Complete LIPASE 12/16 1716 Complete LACTIC ACID 12/16 1716 Complete COMPREHENSIVE METABOLIC PANEL 12/16 1716 Complete CBC WITHOUT DIFFERENTIAL 12/16 1716 Complete AMYLASE 12/16 1716 Complete EKG 12/16 1609 Active Laboratory Tests 12/16/16 2017: Lactic Acid Cancelled 12/16/16 173: Anion Gap 11, Estimated GFR > 60, BUN/Creatinine Ratio 10.9, Glucose 89, Lactic Acid 0.7, Calcium 8.8, Total Bilirubin 0.7, AST 31, ALT 54, Alkaline Phosphatase 90, Troponin I < 0.01, Total Protein 6.8, Albumin 3.9, Globulin 2.9, Albumin/ Globulin Ratio 1.3, Amylase 42, Lipase 37, CBC w Diff NO MAN DIFF REQ, RBC 4.07 L, MCV 92.1, MCH 30.8, RDW 13.4, MPV 7.4, Gran % 54.9, Lymphocytes % 25.0, Monocytes % 11.1 H, Eosinophils % 8.3 H, Basophils % 0.7, Absolute Granulocytes 3.9, Absolute Lymphocytes 1.8, Absolute Monocytes 0.8 H, Absolute Eosinophils 0.6, Absolute Basophils 0, PUBS MCHC 33.5 Microbiology 12/16 1736 STOOL: Clostridium difficile Toxin A & B - CAN Cancelled: SPECIMEN NEVER RECEIVED. PATIENT DEPARTED ER Initial ED EKG: NSR Hand-Off Endorsed To: HEMA GRAY MD Endorsed Time: 1914 Pending: labs, other (REEVALUATION) (JOSSELINE GUNTER MD) Departure Departure Condition: Stable Referrals: JOSE MANUEL BARNETT MD (PCP/Family) Departure Forms: Customer Survey General Discharge Information (JOSSELINE GUNTER MD) Departure Disposition: HOME OR SELF CARE Clinical Impression Primary Impression: Dehydration Additional Instructions: RETURN FOR ANY CONCERNS (HEMA GRAY MD) Critical Care Note Critical Care Note Critical Care Time: non-applicable (JANI OLMEDO,JOSSELINE)
[2016-12-16 17:41] LABS: ABSOLUTE BASOPHIL COUNT 0 /CUMM (0.0-0.2); ABSOLUTE EOSINOPHIL COUNT 0.6 /CUMM (0.0-0.7); ABSOLUTE GRANULOCYTE CT 3.9 /CUMM (1.4-6.5); ABSOLUTE LYMPH COUNT 1.8 /CUMM (1.2-3.4); ABSOLUTE MONOCYTE COUNT 0.8 /CUMM (0.10-0.60); BASOPHIL % 0.7 % (0.0-2.0); EOSINOPHIL % 8.3 % (0-5); GRANULOCYTE % 54.9 % (42.2-75.2); HEMATOCRIT 37.5 % (42-52); MEAN CORPUSCULAR HGB 30.8 PG (27.0-31.0); MEAN CORPUSCULAR HGB CONC 33.5 G/DL (33.0-37.0); MEAN CORPUSCULAR VOLUME 92.1 FL (80.0-94.0); MEAN PLATELET VOLUME 7.4 FL (7.4-10.4); PLATELET COUNT 258 /CUMM (130-400); RBC DISTRIBUTION WIDTH 13.4 % (11.5-14.5); RED BLOOD CELL CT 4.07 /CUMM (4.70-6.10); WHITE BLOOD CELL COUNT 7.2 /CUMM (4.8-10.8)
[2016-12-16 20:32] VITALS: BP 129/66
== END 2016-12-16 21:02 ==
LOC: ERH 16:08
PROVIDERS: Physician Assistant Medical
DX: E86.0 Dehydration (principal)
CPT/HCPCS: 93005; 93010; 96361; 96374; J0131

== ENCOUNTER 2018-02-14 07:24 | Emergency (ER) | payer OTHER ==
[~2018-02-14] VITALS: Ht 177.8 cm; Wt 102.1 kg
[~2018-02-14 07:24] MED LIST changes: -BEPREVE10 ML OPH; +BEPREVE10 ML OU; +CITRATE OF MAG300 ML PO; +FLEET ENEMA133 ML RC; +GOLYTELY PACKE1 EACH PO; +GOLYTELY SOLU4000 ML PO; +LEVOTHYROXINE175 MCG PO; +LINZESS290 MC1 PO; -MULTI-DAY VITA1 EACH PO; +MULTI-VITAMIN1 EACH PO; +NAPROXEN375 M2 PO; +PAZEO2.5 ML OU; +TAMSULOSIN HCL0.4 M1 PO; +ZYRTEC10 M3 PO
--- NOTE | 2018-02-14 07:59 | ED GENERAL ADULT ---
See Addendum History of Present Illness General Chief Complaint: Wheezing/Asthma Stated Complaint: WEEZING PER PT Source: patient Exam Limitations: no limitations Vital Signs & Intake/Output Vital Signs & Intake/Output Vital Signs Date Time Temp Pulse Resp B/P B/P Pulse O2 O2 Flow FiO2 Mean Ox Delivery Rate 02/14 0945 97.9 60 20 135/80 100 Room Air 02/14 0805 96 Room Air 02/14 0729 98.6 70 18 143/77 98 Room Air Allergies Coded Allergies: cephalexin (From KEFLEX) (HIVES 01/16/17) Reconcile Medications Bepotastine Besilate (Bepreve) 1.5 % DROPS 1 GTT OU PRN BOTH EYES (Reported) Cetirizine HCl (Zyrtec) 10 MG TABLET 1 TAB PO DAILY CONGESTION Cyanocobalamin (Vitamin B-12) (Cyanocobalamin Injection) 1,000 MCG/ML VIAL 1 ML IM Q30D SUPPLEMENT (Reported) Ergocalciferol (Vitamin D2) (Vitamin D2) 50,000 UNIT CAPSULE 1 CAP PO Q30D SUPPLEMENT (Reported) Levothyroxine Sodium 175 MCG TABLET 1 TAB PO DAILY THYROID (Reported) Linaclotide (Linzess) 290 MCG CAPSULE 1 CAP PO DAILY GI (Reported) Mometasone Furoate (Nasonex) 50 MCG SPRAY.PUMP 2 SPRAY NASB AD PRN ALLERGIES (Reported) Multivitamin (Multi-Vitamin Daily) 1 EACH TABLET 1 TAB PO D HEALTH SUPPLEMENT (Reported) Na Phos,M-B/Na Phos,Di-Ba (Fleet Enema) 19 GRAM-7 GRAM/118 ML ENEMA 1 E RC ONCE CONSTIPATION Olopatadine HCl (Pazeo) 0.7 % DROPS 1 DROP OU AD PRN ALLERGIES (Reported) Peg 3350/Na Sulf,Bicarb,Cl/KCl (Golytely Solution) 236-22.74G SOLN.RECON 1 KIT PO X1 CONSTIPATION Peg 3350/Na Sulf,Bicarb,Cl/KCl (Golytely Packet) 227.1-21.5 POWD.PACK 1 PAC PO ONCE PRN CONSTIPATION MIX WITH 8 OZ OF WATER FOR CONSTIPATION Simvastatin (Simvastatin*) 40 MG TABLET 1 TAB PO QPM CHOLESTEROL (Reported) Tamsulosin HCl 0.4 MG CAP.ER.24H 1 CAP PO DAILY (Reported) Triage Note: 72 YO MALE TO TRIAGE FOR EVAL OF COUGH AND "WHEEZING ALL NIGHT" PT REPORTS COUGH IS DRY. AFEBRILE. 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 Triage Nurses Notes Reviewed? yes HPI: 72-year-old male comes to the emergency room complaining of shortness of breath and wheezing. Coughing and inability to sleep. The patient has been on steroids for the past few months because of myasthenia gravis. 3 days ago he was started on azathioprine. He denies fever or chills. The patient does report that his diplopia has resolved with this aggressive treatment. Patient has no history of smoking, COPD or asthma. He has no history of lung disease. Past History Travel History Traveled to [place] past 21 day No Medical History Any Pertinent Medical History? 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 Yes Review of Systems Review of Systems Constitutional: Denies: see HPI, chills, diaphoresis. EENTM: Denies: blurred vision, double vision, visual changes. Respiratory: Reports: cough, short of breath, wheezing. Denies: hemoptysis, orthopnea. Cardiovascular: Denies: chest pain, edema, orthopena, palpitations. GI: Denies: abdominal pain, bloating, constipation, diarrhea. Genitourinary: Denies: discharge, dysuria, frequency. Musculoskeletal: Denies: back pain, gout, joint pain. Skin: Denies: cysts, change in skin color, change in hair/nails. Neurological/Psychological: Denies: anxiety, ataxia, cognitive dysfunction. Physical Exam Physical Exam General Appearance: well developed/nourished, no apparent distress, alert Head: atraumatic, normal appearance, active bleeding Eyes: Bilateral: PERRL, EOMI, pale conjunctivae. Ears, Nose, Throat: normal pharynx, normal ENT inspection Neck: normal inspection, supple, full range of motion Respiratory: normal breath sounds, chest non-tender Cardiovascular: regular rate/rhythm Gastrointestinal: normal bowel sounds, soft, non-tender Back: normal inspection, normal range of motion Neurologic/Psych: no motor/sensory deficits, awake, alert, oriented x 3 Skin: normal color, warm/dry Comments: On physical exam no wheezing on auscultation. No respiratory distress. The patient has some skin tears on the anterior leg. Nontender and old Core Measures ACS in differential dx? No CVA/TIA Diagnosis: No Sepsis Present: No Sepsis Focused Exam Completed? No Progress Differential Diagnoses Shortness of breath in a 72-year-old with steroids and azathioprine. We will do medical evaluation. Plan of Care: Orders Procedure Date/time Status Regular Diet 02/14 D Active Add-on Test (ER Only) 02/14 0954 Active Add-on Test (ER Only) 02/14 0902 Active LDH (LACT ACID DEHYDROGENASE) 02/14 0813 Complete D-DIMER 02/14 0813 Complete Telemetry/Maintenance Plumber 02/14 0752 Active TROPONIN LEVEL 02/14 0752 Complete COMPREHENSIVE METABOLIC PANEL 02/14 0752 Complete CBC WITHOUT DIFFERENTIAL 02/14 0752 Complete EKG 02/14 0752 Active Laboratory Tests 02/14/ 0813: Anion Gap 11, Estimated GFR 59 L, BUN/Creatinine Ratio 15.8, Glucose 102 H, Calcium 9.3, Total Bilirubin 1.1, AST 29, ALT 43, Alkaline Phosphatase 96, Lactate Dehydrogenase 741 H, Troponin I < 0.01, Total Protein 6.6, Albumin 4.1, Globulin 2.5, Albumin/Globulin Ratio 1.6, D-Dimer High Sensitivty < 200, CBC w Diff NO MAN DIFF REQ, RBC 4.05 L, MCV 94.6 H, MCH 33.1 H, MCHC 35.0, RDW 15.1 H, MPV 6.7 L, Gran % 62.5, Lymphocytes % 24.3, Monocytes % 10.2 H, Eosinophils % 2.3, Basophils % 0.7, Absolute Granulocytes 7.0 H, Absolute Lymphocytes 2.7, Absolute Monocytes 1.2 H, Absolute Eosinophils 0.3, Absolute Basophils 0.1 Initial ED EKG: see below Comments: Sinus, rate of 62. Normal axis. Normal intervals. No acute ST-T changes. Compared to the EKG from December 16, 2016: No significant change. 1210 the patient's workup was negative including a negative d-dimer. Because the patient is on azathioprine and high-dose steroids I discussed the case with the geological science teacher. recommended LDH and if positive a CT scan without IV contrast to rule out PCP pneumonia. The CT scan confirms there is no PCP pneumonia. The patient will be discharged with antibiotics. He is already on steroids. He is refusing any cough medicine , he reports that he has cough drops already. Presentation consistent with ACS. Inconsistent with PE or any other life- threatening pathology. Departure Departure Time of Disposition: 1211 Disposition: HOME OR SELF CARE Condition: Stable Clinical Impression Primary Impression: Bronchitis after surgery Referrals: Kathleen Rodrigues MD (PCP/Family) Additional Instructions: Return if you get worse. Return for fever or shortness of breath. Departure Forms: Customer Survey General Discharge Information Critical Care Note Critical Care Note Critical Care Time: non-applicable
--- NOTE | 2018-02-14 08:23 | RADIOLOGY REPORT ---
EXAMINATION: XR CHEST CLINICAL INFORMATION: Cough and wheezing. COMPARISON: None TECHNIQUE: 2 views of the chest were obtained. FINDINGS: The lungs are well-expanded and clear of acute process. The heart size is enlarged. The pulmonary vascularity is normal. There is mild anterior wedging of several dorsal vertebrae likely old. There is mild ventral spondylosis. IMPRESSION: Both lungs are fairly well-expanded and clear acute process. The heart size and pulmonary vascularity is normal. There is moderate spondylosis dorsal spine. No lytic process.
[2018-02-14 08:25] LABS: ABSOLUTE BASOPHIL COUNT 0.1 /CUMM (0.0-0.2); ABSOLUTE EOSINOPHIL COUNT 0.3 /CUMM (0.0-0.7); ABSOLUTE LYMPH COUNT 2.7 /CUMM (1.2-3.4); ABSOLUTE MONOCYTE COUNT 1.2 /CUMM (0.10-0.60); BASOPHIL % 0.7 % (0.0-2.0); EOSINOPHIL % 2.3 % (0-5); GRANULOCYTE % 62.5 % (42.2-75.2); HEMATOCRIT 38.3 % (42-52); MEAN CORPUSCULAR HGB 33.1 PG (27.0-31.0); MEAN CORPUSCULAR VOLUME 94.6 FL (80.0-94.0); MEAN PLATELET VOLUME 6.7 FL (7.4-10.4); PLATELET COUNT 323 /CUMM (130-400); RBC DISTRIBUTION WIDTH 15.1 % (11.5-14.5); RED BLOOD CELL CT 4.05 /CUMM (4.70-6.10); WHITE BLOOD CELL COUNT 11.3 /CUMM (4.8-10.8)
[2018-02-14 09:45] VITALS: BP 135/80
--- NOTE | 2018-02-14 12:04 | CT SCAN REPORT ---
EXAMINATION: CT CHEST WITHOUT CONTRAST CLINICAL INFORMATION: On steroids and azathioprine with wheezing. Elevated LDH. Rule out PCP. COMPARISON: Chest radiograph 02/14/[address] thorax 12/26/2016 and 11/25/2017. TECHNIQUE: Multidetector volumetric CT imaging of the chest was done. Axial MIP volume rendering provided. Sagittal and coronal reformatted images were obtained. DLP: 497 mGy-cm FINDINGS: BUSINESS PROCESS LEAD: Unremarkable. LUNGS: As seen on the prior CT examination there is subtle peripheral ground glass opacities intermixed with subpleural reticular opacities throughout the bilateral lungs without appreciable change. Additionally, the small triangular-shaped 4 mm lymph node along the minor fissure is similar to prior. No acute airspace process or atelectasis is seen. MEDIASTINUM: Central airways are patent. No significant mediastinal or hilar lymphadenopathy. Mild coronary artery calcification is seen. PLEURA: There is no pleural effusion. No pleural mass or thickening. AXILLA: No lymphadenopathy. UPPER ABDOMEN: Unremarkable. A presumed small cyst or benign lesion in the left lobe of the liver is unchanged measuring under 1 cm in size. Incidental accessory splenule. OSSEOUS STRUCTURES: Unremarkable. IMPRESSION: 1. Mild interstitial subpleural lung changes without honeycombing is unchanged from prior. 2. No acute consolidation or acute groundglass opacities.
[2018-02-14] MEDS ORDERED: ZITHROMAX250 M2 PO (12:13)
== END 2018-02-14 12:24 ==
LOC: ERH 07:24
PROVIDERS: Emergency Medicine
DX: J40 Bronchitis, not specified as acute or chronic (principal); R06.02 Shortness of breath; R06.2 Wheezing; R05 Cough
CPT/HCPCS: 71046; 93005; 93010

== ENCOUNTER 2018-03-04 15:20 | Emergency (ER) | payer OTHER ==
[~2018-03-04] VITALS: Ht 179.1 cm; Wt 100.7 kg
[~2018-03-04 15:20] MED LIST changes: +AFRIN30 ML NASB; +AMOXICILLIN500 M3 PO; +AZATHIOPRINE50 M1 PO; +COMBIVENT RESPIM4 GM INH; +ESCITALOPRAM OX10 MG PO; +FAMOTIDINE40 M1 PO; +PREDNISONE10 M2 PO; +PROAIR HFA8.5 GM INH; +PROMETH-CODEIN 65 ML PO; +SPACE CHAMBER1 EACH N; +VALACYCLOVIR1000 MG PO
[2018-03-04 15:52] LABS: ABSOLUTE BASOPHIL COUNT 0 /CUMM (0.0-0.2); ABSOLUTE EOSINOPHIL COUNT 0 /CUMM (0.0-0.7); ABSOLUTE LYMPH COUNT 1.2 /CUMM (1.2-3.4); ABSOLUTE MONOCYTE COUNT 0.4 /CUMM (0.10-0.60); BASOPHIL % 0.2 % (0.0-2.0); EOSINOPHIL % 0 % (0-5); GRANULOCYTE % 83.3 % (42.2-75.2); HEMATOCRIT 37.5 % (42-52); MEAN CORPUSCULAR HGB 33.2 PG (27.0-31.0); MEAN CORPUSCULAR HGB CONC 34.7 G/DL (33.0-37.0); MEAN CORPUSCULAR VOLUME 95.7 FL (80.0-94.0); MEAN PLATELET VOLUME 7.1 FL (7.4-10.4); PLATELET COUNT 361 /CUMM (130-400); RBC DISTRIBUTION WIDTH 13.6 % (11.5-14.5); RED BLOOD CELL CT 3.92 /CUMM (4.70-6.10); WHITE BLOOD CELL COUNT 10.2 /CUMM (4.8-10.8)
[2018-03-04 15:53] LABS: ABSOLUTE GRANULOCYTE CT 8.5 /CUMM (1.4-6.5)
--- NOTE | 2018-03-04 16:26 | RADIOLOGY REPORT ---
EXAMINATION: XR CHEST CLINICAL INFORMATION: Shortness of breath. COMPARISON: Chest x-ray dated 02/19/2018 and several prior chest x-rays dating back to 08/10/2016. CT scan of the chest dated 02/14/2018. TECHNIQUE: 2 views of the chest were obtained. FINDINGS: The cardiomediastinal silhouette is borderline enlarged. Lungs bilaterally are symmetrically hypoexpanded with diffuse reticular prominence of the lungs, similar to the previous exams, suggestive of interstitial lung disease as seen on prior CT scan. No superimposed focal consolidation, effusion or pneumothorax is seen. Diffuse osteopenia is seen with mild dorsal kyphosis and multilevel mild vertebral spondylosis in the mid and lower thoracic spine. IMPRESSION: Hypoexpanded lungs with background of interstitial lung disease. No new superimposed focal pulmonary process seen.
--- NOTE | 2018-03-04 17:48 | ED GENERAL ADULT ---
History of Present Illness General Chief Complaint: General Adult Stated Complaint: SIB URGENT CARE FOR "BREATHING PROBLEMS AND STUFF" Source: patient Exam Limitations: no limitations Vital Signs & Intake/Output Vital Signs & Intake/Output Vital Signs Date Time Temp Pulse Resp B/P B/P Pulse O2 O2 Flow FiO2 Mean Ox Delivery Rate 03/04 1918 98 Room Air 03/04 1752 98.7 20 135/78 95 Room Air 03/04 1745 Room Air 03/04 1531 99.3 70 24 141/78 96 Room Air Room Air Allergies Coded Allergies: cephalexin (From KEFLEX) (HIVES 01/16/17) levofloxacin (HIVES 02/19/18) Reconcile Medications Albuterol Sulfate (Proair Hfa) 90 MCG HFA.AER.AD 2 PUF INH AD PRN RESP. ( Reported) Azathioprine 50 MG TABLET 1 TAB PO DAILY MYASTHENIA GRAVIS (Reported) Bepotastine Besilate (Bepreve) 1.5 % DROPS 1 GTT OU PRN BOTH EYES (Reported) Cyanocobalamin (Vitamin B-12) (Cyanocobalamin Injection) 1,000 MCG/ML VIAL 1 ML IM Q30D SUPPLEMENT (Reported) Ergocalciferol (Vitamin D2) (Vitamin D2) 50,000 UNIT CAPSULE 1 CAP PO Q30D SUPPLEMENT (Reported) Escitalopram Oxalate 10 MG TABLET 1 TAB PO DAILY MENTAL HEALTH (Reported) Famotidine 40 MG TABLET 1 TAB PO QAM GI (Reported) Ipratropium/Albuterol Sulfate (Combivent Respimat Inhal [place]) 20 MCG-100 MCG/ ACTUATION MIST.INHAL 1 SPRY INH BID wheezing Levothyroxine Sodium 175 MCG TABLET 1 TAB PO DAILY THYROID (Reported) Multivitamin (Multi-Vitamin Daily) 1 EACH TABLET 1 TAB PO D HEALTH SUPPLEMENT (Reported) Olopatadine HCl (Pazeo) 0.7 % DROPS 1 DROP OU AD PRN ALLERGIES (Reported) Oxymetazoline HCl (Afrin) 0.05 % SPRAY 2 SPRAY NASB Q12H SINUSES (Reported) Prednisone 10 MG TABLET 30 MG PO DAILY STEROID (Reported) Simvastatin (Simvastatin*) 40 MG TABLET 1 TAB PO QPM CHOLESTEROL (Reported) Valacyclovir HCl (Valacyclovir) 1,000 MG TABLET 1 TAB PO PRN COLD SORES ( Reported) Triage Note: PT TO ED AFTER BEING SEEN AT [facility] SEVERAL TIMES, DIAGNOSED WITH BRONCITIS, FINISHED COURSE OF ANTIBIOTICS ABOUT A WEEK OR SO AGO, TO ED WITH C/O FEELING SOB, O2 SATS 96% ON ROOM AIR WHILE TALKING IN TRIAGE. PT EVAL BY CANDIE SHI IN TRIAGE. TEMP 99.3 ORAL Triage Nurses Notes Reviewed? yes Onset: Gradual Duration: week(s): Timing: constant HPI: 65-year-old male with a history of myasthenia gravis (on 30 mg daily prednisone) , hyperlipidemia, hypothyroid, BPH, depression presenting with shortness of breath 4 weeks. Patient reports intermittent episodes of shortness of breath, has also had a nonproductive cough as well. Has been seen twice in the emergency department over the past several weeks for the same complaint. Was treated for bronchitis with azithromycin prescription, which he reports he has finished as prescribed, but has had no improvement in his shortness of breath. Denies fevers, URI symptoms, chest pain, leg swelling, orthopnea, weight gain, dyspnea on exertion. (Rhoda Jauregui) Past History Travel History Traveled to [place] past 21 day No Medical History Any Pertinent Medical History? 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 No (Rhoda Jauregui) Review of Systems Review of Systems Constitutional: Reports: no symptoms. EENTM: Reports: no symptoms. Respiratory: Reports: see HPI. Cardiovascular: Reports: no symptoms. GI: Reports: no symptoms. Genitourinary: Reports: no symptoms. Musculoskeletal: Reports: no symptoms. Skin: Reports: no symptoms. Neurological/Psychological: Reports: no symptoms. Hematologic/Endocrine: Reports: no symptoms. Immunologic/Allergic: Reports: no symptoms. All Other Systems: Reviewed and Negative (Rhoda Jauregui) Physical Exam Physical Exam General Appearance: well developed/nourished, no apparent distress, alert, awake , comfortable Comments: Gen.: Well-nourished, well-developed, no acute distress. Head: Normocephalic, atraumatic. Eyes: Normal inspection bilaterally Ears: Normal inspection bilaterally Nose: Normal inspection Neck: Normal inspection Lungs: clear to auscultation bilaterally, normnal breath sounds, normal work of breathing, no tachypnea, no hypoxia Heart: regular rate and rhythm Abdomen: soft and non-tender Extremities: Normal inspection Neurologic: alert and oriented x3, steady gait Skin: warm and dry Psychiatric: Normal mood and affect, no apparent delusions or hallucinations, behavior appropriate Core Measures ACS in differential dx? No CVA/TIA Diagnosis: No Sepsis Present: No Sepsis Focused Exam Completed? No (Justyna SHI,Rhoda) Progress Differential Diagnoses I considered the following diagnoses in my evaluation of the patient: [ Bronchitis versus pneumonia versus PE versus ACS versus pneumothorax] Plan of Care: Orders Procedure Date/time Status D-DIMER 03/04 1540 Complete TROPONIN LEVEL 03/04 1532 Complete LACTIC ACID 03/04 1532 Complete COMPREHENSIVE METABOLIC PANEL 03/04 1532 Complete CBC WITHOUT DIFFERENTIAL 03/04 1532 Complete B-TYPE NATRIURETIC PEP (BNP) 03/04 1532 Complete EKG 03/04 1532 Active Laboratory Tests 03/04/18 1832: Lactic Acid Cancelled 03/04/18 1540: Anion Gap 9, Estimated GFR > 60, BUN/Creatinine Ratio 19.1, Glucose 126 H, Lactic Acid 1.4, Calcium 9.5, Total Bilirubin 1.4 H, AST 26, ALT 41, Alkaline Phosphatase 72, Troponin I < 0.01, [id number]-[id number] Pept 136 H, Total Protein 6.7, Albumin 4.2, Globulin 2.5, Albumin/Globulin Ratio 1.7, D-Dimer High Sensitivty < 200, CBC w Diff NO MAN DIFF REQ, RBC 3.92 L, MCV 95.7 H, MCH 33.2 H, MCHC 34.7, RDW 13.6, MPV 7.1 L, Gran % 83.3 H, Lymphocytes % 12.2 L, Monocytes % 4.3, Eosinophils % 0, Basophils % 0.2, Absolute Granulocytes 8.5 H, Absolute Lymphocytes 1.2, Absolute Monocytes 0.4, Absolute Eosinophils 0, Absolute Basophils 0 EKG is nonischemic, troponin negative Labs show mild elevation in BNP to 136, low concern for acute heart failure, within age-adjusted bnp CTA Chest IMPRESSION: No acute abnormality. No evidence of pulmonary embolism. Vital signs are within normal limits, no hypoxia, no tachypnea, no increased work of breathing both at rest and with ambulation. Ambulatory O2 sat in the high 90s. Discussed with the ED attending and recommended the patient increase his daily prednisone from 30 mg to 40 mg. Patient states that he would like to discuss this with his neurologist before making the dose change. He will call his PMD tomorrow morning for reevaluation appointment. Given strict return precautions. Initial ED EKG: normal sinus rhythm, no ST T wave changes (Rhoda Jauregui) Departure Departure Disposition: HOME OR SELF CARE Condition: Stable Clinical Impression Primary Impression: Dyspnea Referrals: Kathleen Rodrigues MD (PCP/Family) Additional Instructions: We have recommended that you increase her daily prednisone from 30 mg to 40 mg. You may consult your neurologist before making this change. Follow-up with your primary care provider tomorrow for reevaluation. Return to the emergency department for any new or worsening symptoms. Departure Forms: Customer Survey General Discharge Information (Rhoda Jauregui) PA/INCIDENT RESPONSE CONSULTANT Co-Sign Statement Statement: ED Attending supervision documentation- x I saw and evaluated the patient. I have also reviewed all the pertinent lab results and diagnostic results. I agree with the findings and the plan of care as documented in the PA's/INCIDENT RESPONSE CONSULTANT's documentation. [] I have reviewed the ED Record and agree with the PA's/INCIDENT RESPONSE CONSULTANT's documentation. [] Additions or exceptions (if any) to the PAs/INCIDENT RESPONSE CONSULTANT's note and plan are summarized below: [] (Raj Venegas MD) Critical Care Note Critical Care Note Critical Care Time: non-applicable (Rhoda Jauregui)
[2018-03-04 17:52] VITALS: BP 135/78
--- NOTE | 2018-03-04 18:53 | CT SCAN REPORT ---
EXAMINATION: CT ANGIOGRAM CHEST, PE STUDY CLINICAL INFORMATION: Shortness of breath. COMPARISON: CT chest 02/14/2018. Chest x-ray 03/04/2018 TECHNIQUE: A noncontrast localizer was performed, followed by the administration of 73 mL Optiray [address] of the chest was then performed. Coronal and sagittal reformatted and 3-D technique MIP images of the chest were completed at the CT scanner and reviewed on the PACS workstation. No adverse effects were reported. DLP: 601.38 mGy-cm. FINDINGS: VASCULAR: The main pulmonary artery, secondary and tertiary branches of the pulmonary artery are normally opacified with no evidence of pulmonary embolism. There is no aneurysm or evidence for dissection of aorta. There are vascular calcifications of aortic arch. MEDIASTINUM: No mediastinal mass. No significant lymphadenopathy. There is no pericardial effusion. There is calcification of the coronary arteries. LUNGS: The lungs are clear. No nodule or infiltrate. There is a 6 mm focal pleural thickening of the minor fissure sagittal image 84. Central bronchial airways open. FLUID: There is no pericardial effusion. There is no pleural effusion. AXILLA: No significant lymphadenopathy. UPPER ABDOMEN: Adrenal glands normal. Visualized portions of liver and spleen unremarkable. There is a small splenule at the anterior splenic margin. There is fatty atrophy of the pancreas. SKELETAL: Degenerative spondylosis spine multilevel disc height narrowing and endplate spurring of the vertebrae. IMPRESSION: No acute abnormality. No evidence of pulmonary embolism.
[2018-03-05] MEDS ORDERED: IMODIUM A-D2 M1 PO (07:11)
[2018-03-05] MEDS ORDERED: ZOFRAN ODT4 M1 SL (07:11)
[2018-03-05] MEDS ORDERED: LEVSIN-SL0.125 MG SL (07:11)
== END 2018-03-04 19:18 ==
LOC: ERH 15:20
PROVIDERS: Physician Assistant Medical
DX: R06.00 Dyspnea, unspecified (principal)
CPT/HCPCS: 71046; 93005; 93010

== ENCOUNTER 2018-03-05 04:10 | Emergency (ER) | payer OTHER ==
[~2018-03-05] VITALS: Ht 179.1 cm; Wt 100.7 kg
--- NOTE | 2018-03-05 05:32 | ED GI/GU/ABDOMINAL COMPLAINT ---
History of Present Illness General Chief Complaint: Abdominal Pain/Flank Pain Stated Complaint: ABD PAIN Source: patient, old records Exam Limitations: no limitations Vital Signs & Intake/Output Vital Signs & Intake/Output Vital Signs Date Time Temp Pulse Resp B/P B/P Pulse O2 O2 Flow FiO2 Mean Ox Delivery Rate 03/05 0629 99.2 72 20 115/59 96 Room Air 03/05 0512 98 Room Air 03/05 0510 98.6 79 18 161/73 98 Room Air Allergies Coded Allergies: cephalexin (From KEFLEX) (HIVES 01/16/17) levofloxacin (HIVES 02/19/18) Reconcile Medications Albuterol Sulfate (Proair Hfa) 90 MCG HFA.AER.AD 2 PUF INH AD PRN RESP. ( Reported) Azathioprine 50 MG TABLET 1 TAB PO DAILY MYASTHENIA GRAVIS (Reported) Bepotastine Besilate (Bepreve) 1.5 % DROPS 1 GTT OU PRN BOTH EYES (Reported) Cyanocobalamin (Vitamin B-12) (Cyanocobalamin Injection) 1,000 MCG/ML VIAL 1 ML IM Q30D SUPPLEMENT (Reported) Ergocalciferol (Vitamin D2) (Vitamin D2) 50,000 UNIT CAPSULE 1 CAP PO Q30D SUPPLEMENT (Reported) Escitalopram Oxalate 10 MG TABLET 1 TAB PO DAILY MENTAL HEALTH (Reported) Famotidine 40 MG TABLET 1 TAB PO QAM GI (Reported) Ipratropium/Albuterol Sulfate (Combivent Respimat Inhal [place]) 20 MCG-100 MCG/ ACTUATION MIST.INHAL 1 SPRY INH BID wheezing Levothyroxine Sodium 175 MCG TABLET 1 TAB PO DAILY THYROID (Reported) Multivitamin (Multi-Vitamin Daily) 1 EACH TABLET 1 TAB PO D HEALTH SUPPLEMENT (Reported) Olopatadine HCl (Pazeo) 0.7 % DROPS 1 DROP OU AD PRN ALLERGIES (Reported) Oxymetazoline HCl (Afrin) 0.05 % SPRAY 2 SPRAY NASB Q12H SINUSES (Reported) Prednisone 10 MG TABLET 30 MG PO DAILY STEROID (Reported) Simvastatin (Simvastatin*) 40 MG TABLET 1 TAB PO QPM CHOLESTEROL (Reported) Valacyclovir HCl (Valacyclovir) 1,000 MG TABLET 1 TAB PO PRN COLD SORES ( Reported) Triage Note: TRIAGE: PATIENT TO ER FROM HOME REPORTING SEEN HERE EARLIER "HAD A CT SCAN DONE FOR THE SAME BELLY PAIN, WAS FEELING LITTLE BETTER SO LEFT THEN WENT TO [facility] AND ATE A HOT DOG AND NOW I'VE HAD DIARRHEA TWICE AND MY STOMACH IS BURNING AGAIN." Triage Nurses Notes Reviewed? yes Onset: Just prior to arrival Duration: hour(s):, constant, continues in ED Timing: recent history Quality/Severity: burning, sharpness, vomiting Location: epigastric Radiation: no radiation Activities at Onset: rest Prior Abdominal Problems: none Past Sexual History: Unobtainable at this time Modifying Factors: Worsens With: eating. Associated Symptoms: abdominal pain, diarrhea, loss of appetite, nausea/vomiting HPI: Several hours prior to admission after eating a hotdog and solid the patient developed generalized abdominal discomfort with nausea vomiting loose watery stool. He denies fever chills chest pain cough shortness of breath headache dysuria rash bleeding. Past History Travel History Traveled to [place] past 21 day No Medical History Any Pertinent Medical History? 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 No Review of Systems Review of Systems Constitutional: Reports: see HPI, malaise. EENTM: Reports: no symptoms. Respiratory: Reports: no symptoms. Cardiovascular: Reports: no symptoms. GI: Reports: see HPI, abdominal pain, nausea, vomiting. Genitourinary: Reports: no symptoms. Musculoskeletal: Reports: no symptoms. Skin: Reports: no symptoms. Neurological/Psychological: Reports: no symptoms. Hematologic/Endocrine: Reports: no symptoms. Immunologic/Allergic: Reports: no symptoms. All Other Systems: Reviewed and Negative Physical Exam Physical Exam General Appearance: well developed/nourished, alert, awake, anxious, moderate distress, obese Head: atraumatic, normal appearance Eyes: Bilateral: normal appearance, PERRL, EOMI. Ears, Nose, Throat, Mouth: hearing grossly normal, dry mucous membranes Neck: normal inspection, supple, full range of motion, normal alignment Respiratory: normal breath sounds, chest non-tender, no respiratory distress, quiet respiration, lungs clear Cardiovascular: regular rate/rhythm, normal peripheral pulses, norml femoral pulses equa Peripheral Pulses: 4+ carotid (R), 4+ carotid (L) Gastrointestinal: normal bowel sounds, soft, non-tender, no organomegaly Male Genitals: normal genitalia Back: normal inspection, normal range of motion Extremities: normal range of motion, no ligament instability Neurologic/Psych: no motor/sensory deficits, awake, alert, oriented x 3, normal gait, normal mood/affect, acute specialist II-XII nml as tested Skin: intact, normal color, warm/dry Core Measures ACS in differential dx? No Sepsis Present: No Sepsis Focused Exam Completed? No Progress Differential Diagnosis: bowel obstruction, gastritis, pancreatitis, PUD/GERD Plan of Care: Orders Procedure Date/time Status LIPASE 03/05 529 Complete COMPREHENSIVE METABOLIC PANEL 03/05 529 Complete CBC WITHOUT DIFFERENTIAL 03/05 529 Complete Laboratory Tests 03/05/18 0609: Anion Gap 6, Estimated GFR > 60, BUN/Creatinine Ratio 22.7, Glucose 117 H, Calcium 8.8, Total Bilirubin 2.4 H, AST 23, ALT 33, Alkaline Phosphatase 52, Total Protein 6.0 L, Albumin 3.6, Globulin 2.4, Albumin/Globulin Ratio 1.5, Lipase 310 H, CBC w Diff NO MAN DIFF REQ, RBC 4.09 L, MCV 96.4 H, MCH 33.3 H , MCHC 34.5, RDW 14.2, MPV 7.0 L, Gran % 84.2 H, Lymphocytes % 8.1 L, Monocytes % 5.8, Eosinophils % 1.8, Basophils % 0.1, Absolute Granulocytes 8.7 H, Absolute Lymphocytes 0.8 L, Absolute Monocytes 0.6, Absolute Eosinophils 0.2 , Absolute Basophils 0 Initial ED EKG: none Departure Departure Time of Disposition: 709 Disposition: HOME OR SELF CARE Condition: Stable Clinical Impression Primary Impression: Gastroenteritis Secondary Impressions: Dehydration Referrals: Kathleen Rodrigues MD (PCP/Family) Departure Forms: Customer Survey General Discharge Information Prescriptions: Current Visit Scripts Ondansetron (Zofran Odt) 1 TAB SL TID PRN n/v #10 TAB Loperamide HCl (Imodium A-D) 0 PO SEE ADMIN CRITERIA PRN diarrhea #24 TAB 1 tab after each loose stool up to 7 per day Hyoscyamine Sulfate (Levsin-Sl) 1 TAB SL Q4P PRN abdominal cramps #30 TAB
[2018-03-05 06:19] LABS: ABSOLUTE BASOPHIL COUNT 0 /CUMM (0.0-0.2); ABSOLUTE EOSINOPHIL COUNT 0.2 /CUMM (0.0-0.7); ABSOLUTE GRANULOCYTE CT 8.7 /CUMM (1.4-6.5); ABSOLUTE LYMPH COUNT 0.8 /CUMM (1.2-3.4); ABSOLUTE MONOCYTE COUNT 0.6 /CUMM (0.10-0.60); BASOPHIL % 0.1 % (0.0-2.0); EOSINOPHIL % 1.8 % (0-5); GRANULOCYTE % 84.2 % (42.2-75.2); HEMATOCRIT 39.4 % (42-52); MEAN CORPUSCULAR HGB 33.3 PG (27.0-31.0); MEAN CORPUSCULAR HGB CONC 34.5 G/DL (33.0-37.0); MEAN CORPUSCULAR VOLUME 96.4 FL (80.0-94.0); PLATELET COUNT 303 /CUMM (130-400); RBC DISTRIBUTION WIDTH 14.2 % (11.5-14.5); RED BLOOD CELL CT 4.09 /CUMM (4.70-6.10); WHITE BLOOD CELL COUNT 10.4 /CUMM (4.8-10.8)
[2018-03-05] MEDS ORDERED: LEVSIN-SL0.125 MG SL (07:11)
[2018-03-05] MEDS ORDERED: IMODIUM A-D2 M1 PO (07:11)
[2018-03-05] MEDS ORDERED: ZOFRAN ODT4 M1 SL (07:11)
[2018-03-05 08:23] VITALS: BP 124/84
== END 2018-03-05 08:24 ==
LOC: ERH 04:10
PROVIDERS: Emergency Medicine
DX: K52.9 Noninfective gastroenteritis and colitis, unspecified (principal); E86.0 Dehydration
CPT/HCPCS: 96374; 96375; J0131; J2405

== ENCOUNTER 2018-03-15 05:18 | Emergency (ER) | payer OTHER ==
[~2018-03-15 05:18] MED LIST changes: +IMODIUM A-D2 M1 PO; +LEVSIN-SL0.125 MG SL; +ZOFRAN ODT4 M1 SL
--- NOTE | 2018-03-15 05:44 | ED GENERAL ADULT ---
History of Present Illness General Chief Complaint: General Adult Stated Complaint: FEVER,SWEATING CHILLS,HEARTBURN, DIZZY Source: patient Exam Limitations: no limitations Vital Signs & Intake/Output Vital Signs & Intake/Output Vital Signs Date Time Temp Pulse Resp B/P B/P Pulse O2 O2 Flow FiO2 Mean Ox Delivery Rate 03/15 0743 99.8 74 18 132/71 96 Room Air Room Air 03/15 0539 97 Room Air 03/15 0535 99.1 85 18 152/78 97 Room Air Allergies Coded Allergies: cephalexin (From KEFLEX) (HIVES 01/16/17) levofloxacin (HIVES 02/19/18) Reconcile Medications Albuterol Sulfate (Proair Hfa) 90 MCG HFA.AER.AD 2 PUF INH AD PRN RESP. ( Reported) Azathioprine 50 MG TABLET 1 TAB PO DAILY MYASTHENIA GRAVIS (Reported) Bepotastine Besilate (Bepreve) 1.5 % DROPS 1 GTT OU PRN BOTH EYES (Reported) Cyanocobalamin (Vitamin B-12) (Cyanocobalamin Injection) 1,000 MCG/ML VIAL 1 ML IM Q30D SUPPLEMENT (Reported) Doxycycline Hyclate 100 MG TABLET 1 TAB PO BID PROSTATITIS Ergocalciferol (Vitamin D2) (Vitamin D2) 50,000 UNIT CAPSULE 1 CAP PO Q30D SUPPLEMENT (Reported) Escitalopram Oxalate 10 MG TABLET 1 TAB PO DAILY MENTAL HEALTH (Reported) Famotidine 40 MG TABLET 1 TAB PO QAM GI (Reported) Hyoscyamine Sulfate (Levsin-Sl) 0.125 MG TAB.SUBL 1 TAB SL Q4P PRN abdominal cramps Ipratropium/Albuterol Sulfate (Combivent Respimat Inhal [place]) 20 MCG-100 MCG/ ACTUATION MIST.INHAL 1 SPRY INH BID wheezing Levothyroxine Sodium 175 MCG TABLET 1 TAB PO DAILY THYROID (Reported) Loperamide HCl (Imodium A-D) 2 MG TABLET 0 PO SEE ADMIN CRITERIA PRN diarrhea 1 tab after each loose stool up to 7 per day Multivitamin (Multi-Vitamin Daily) 1 EACH TABLET 1 TAB PO D HEALTH SUPPLEMENT (Reported) Olopatadine HCl (Pazeo) 0.7 % DROPS 1 DROP OU AD PRN ALLERGIES (Reported) Ondansetron (Zofran Odt) 4 MG TAB.RAPDIS 1 TAB SL TID PRN n/v Oxymetazoline HCl (Afrin) 0.05 % SPRAY 2 SPRAY NASB Q12H SINUSES (Reported) Prednisone 10 MG TABLET 30 MG PO DAILY STEROID (Reported) Simvastatin (Simvastatin*) 40 MG TABLET 1 TAB PO QPM CHOLESTEROL (Reported) Valacyclovir HCl (Valacyclovir) 1,000 MG TABLET 1 TAB PO PRN COLD SORES ( Reported) Triage Note: 72M TO ED, DROVE HIMSELF, REPORTS DIZZINESS AND SUBJECTIVE FEVERS SINCE LAST NIGHT. HAS MULTIPLE COMPLAINTS. HAS BEEN SEEN IN ED 6X THIS MONTH AND BEEN TO PMD MULTIPLE TIMES. HX MYESTHENIA GRAVIS AND TAKING NEW MEDS. REPORTS DIZZINESS WITH POSITION CHANGES BUT NOT WITH TURNING HEAD, NO NYSTAGMUS OBSERVED. ALSO C/O PERIUMBILICAL PAIN SINCE LAST NIGHT. DENIES VOMITING. DENIES VISION CHANGES. DENIES SYMPTOMS. SLIGHT BURNING W URINATION REPORTS 1.5 MONTHS OF GENERAL ILL FEELING W DIFF BREATHING AND FATIGUE, FEVERS. LSCTA AND NORMAL S1S2. ABD SOFT. Triage Nurses Notes Reviewed? yes Onset: Gradual Duration: week(s):, waxing and waning Timing: recent history Injury Environment: home Severity: moderate Modifying Factors: Improves With: rest. Associated Symptoms: diaphoresis HPI: 72 yo gentleman h/o myasthenia gravis, on prednisone and azathioprine, presents with 6 weeks of intermittent weakness, fevers, cough, occasional phlegm. He was treated with antibiotics for bronchitis a few weeks ago. He notes an unsteady gait and is uncertain if he is safe at home. He states that his symptoms have returned. He notes intermittent chest discomfort, "like reflux... I know I have reflux." He presently has no chest pain. He is otherwise well. (Gamal OLMEDO,Yonatan Wong) Past History Travel History Traveled to [place] past 21 day No Medical History Any Pertinent Medical History? 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 No (Yonatan Yeung MD) Review of Systems Review of Systems Constitutional: Reports: no symptoms. EENTM: Reports: no symptoms. Respiratory: Reports: no symptoms. Cardiovascular: Reports: no symptoms. GI: Reports: no symptoms. Genitourinary: Reports: no symptoms. Musculoskeletal: Reports: no symptoms. Skin: Reports: no symptoms. Neurological/Psychological: Reports: no symptoms. Hematologic/Endocrine: Reports: no symptoms. Immunologic/Allergic: Reports: no symptoms. All Other Systems: Reviewed and Negative (Yonatan Yeung MD) Physical Exam Physical Exam General Appearance: well developed/nourished, no apparent distress, see below Rectal: +tender prostate Comments: Review of Systems - except as otherwise noted in HPI Review of Systems Constitutional:no symptoms. EENTM:no symptoms. Respiratory:no symptoms. Cardiovascular:no symptoms. GI:no symptoms. Genitourinary:no symptoms. Musculoskeletal:no symptoms. Skin:no symptoms. Neurological/Psychological:no symptoms. Hematologic/Endocrine:no symptoms. Immunologic/Allergic:no symptoms. All Other Systems: Reviewed and Negative Physical Exam Physical Exam General Appearance: well developed/nourished, no apparent distress Head: atraumatic, normal appearance Eyes: Bilateral: normal appearance. Ears, Nose, Throat: normal pharynx, normal ENT inspection Neck: normal inspection, supple, full range of motion Respiratory: normal breath sounds, chest non-tender, no respiratory distress, quiet respiration, lungs clear Cardiovascular: regular rate/rhythm Gastrointestinal: normal bowel sounds, soft, non-tender, no organomegaly Back: normal inspection, normal range of motion Extremities: normal inspection, normal capillary refill, normal range of motion, no edema Neurologic/Psych: no motor/sensory deficits, awake, alert, oriented x 3 Skin: intact, normal color, warm/dry rectal: tender prostate, guaic negative Core Measures ACS in differential dx? No CVA/TIA Diagnosis: No Sepsis Present: No Sepsis Focused Exam Completed? No (Yonatan Yeung MD) Progress Differential Diagnoses I considered the following diagnoses in my evaluation of the patient: dysrhythmia vs electrolyte abnormalities vs other. Plan of Care: Orders Procedure Date/time Status TROPONIN LEVEL 03/15 0820 Complete EKG 03/15 0820 Active PT Evaluate & Treat 03/15 0620 Active CASE MANAGEMENT CONSULT 03/15 06 Active URINALYSIS 03/15 0543 Complete TROPONIN LEVEL 03/15 520 Complete LIPASE 03/15 520 Complete LACTIC ACID 03/15 520 Complete HEPATIC FUNCTION PANEL 03/15 520 Complete D-DIMER 03/15 520 Complete CBC WITHOUT DIFFERENTIAL 03/15 520 Complete BASIC METABOLIC PANEL 03/15 520 Complete AMYLASE 03/15 520 Complete EKG 03/15 520 Active Laboratory Tests 03/15/18 0840: Troponin I < 0.01 03/15/18 0616: Anion Gap 7, Estimated GFR 59 L, BUN/Creatinine Ratio 15.0, Glucose 92, Lactic Acid 1.4, Calcium 9.0, Total Bilirubin 1.3, Direct Bilirubin 0.1, AST 27, ALT 41 , Alkaline Phosphatase 66, Troponin I < 0.01, Total Protein 6.4, Albumin 4.0, Amylase 59, Lipase 54, D-Dimer High Sensitivty 311 H, CBC w Diff NO MAN DIFF REQ, RBC 4.02 L, MCV 96.8 H, MCH 33.2 H, MCHC 34.3, RDW 14.5, MPV 6.5 L, Gran % 76.8 H, Lymphocytes % 10.1 L, Monocytes % 9.6 H, Eosinophils % 2.9, Basophils % 0.6, Absolute Granulocytes 8.6 H, Absolute Lymphocytes 1.1 L, Absolute Monocytes 1.1 H, Absolute Eosinophils 0.3, Absolute Basophils 0.1 03/15/18 0546: Urinalysis LIGHT H, Urine Color YEL, Urine Clarity CLEAR, Urine pH 6.5, Ur Specific [place] 1.020, Urine Protein NEG, Urine Ketones NEG, Urine Nitrite NEG, Urine Bilirubin NEG, Urine Urobilinogen 0.2, Ur Leukocyte Esterase TRACE H, Ur Microscopic SEDIMENT EXAMINED, Urine RBC 5-10 H, Urine WBC 10-15 H, Ur Epithelial Cells RARE, Urine Bacteria FEW H, Urine Mucus MOD H, Urine Hemoglobin MOD H, Urine Glucose NEG Diagnostic Imaging: Viewed by Me: Radiology Read. Discussed w/RAD: Radiology Read. CXR Impression: PATIENT: SANDEEP RICE PRESENT AGE: 72 PATIENT ACCOUNT NO: [id number] : 43 LOCATION: [facility] ORDERING PHYSICIAN: Yonatan Yeung MD SERVICE DATE: 03/15/18 EXAM TYPE: RAD - XRY- PORTABLE CHEST XRAY EXAMINATION: XR PORTABLE CHEST CLINICAL INFORMATION: Chest pain COMPARISON: 03/04/2018 TECHNIQUE: Portable frontal view of the chest was obtained. FINDINGS: The lungs are clear with no focal consolidation. No evidence of pneumothorax, pulmonary edema, or pleural effusions. The cardiomediastinal silhouette is unremarkable. No acute osseous findings. IMPRESSION: No acute cardiopulmonary findings. DICTATED BY: Yonatan Rosales MD DATE/TIME DICTATED:619 VEGETABLES COOK:LIUS DATE/TIME TRANSCRIBED:03/15/18619 CONFIDENTIAL, DO NOT COPY WITHOUT APPROPRIATE AUTHORIZATION. <Electronically signed in Other Vendor System> SIGNED BY: Yonatan Rosales MD 03/15/18623 Initial ED EKG: borderline t's in III, F, no change from prior. 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 I have updated Sandeep on his test results. He states he just feels "foggy" and he is experiencing "disequilibrium". The symptoms have been present since July. I've asked that he follow up with his neurologist for reevaluation given his history of myasthenia gravis. We have discussed the possibility that the patient's prostate tenderness reflex a prostate infection that could exacerbate chronic medical conditions such as myasthenia gravis. The patient will call his neurologist today. (Magalis OLMEDO,Panchito Fernandez) Departure Departure Condition: Stable Referrals: Kathleen Rodrigues MD (PCP/Family) Departure Forms: Customer Survey General Discharge Information Prescriptions: Current Visit Scripts Doxycycline Hyclate 1 TAB PO BID #28 TAB Comments 03/15/18, 7am... pt with prostatitis based on tender prostate on clinical exam and signs/symptoms. given his burning mid epigastric chest pain, will check trop/ekg #2. given his recurrent visits to ed and reported weakness, will consult case management and PT to ensure safe discharge, VNA vs short term rehab. pt given doxy to cover prostatitis, given his allergies to fluroquinolones and cephalosporins. Pt signed out to dr. blancas. (Gamal OLMEDO,Yonatan Wong) Departure Disposition: HOME OR SELF CARE Clinical Impression Primary Impression: Prostatitis Secondary Impressions: Myasthenia gravis Additional Instructions: Doxycycline as prescribed for your prostate infection. Follow-up with your neurologist today for reevaluation of your myasthenia gravis. Notify your primary care doctor this emergency department visit and treatment plan. Return if any concerns or sudden worsening. Please note that there might be incidental findings in your evaluation that are unrelated to the current emergency department visit. Please notify your primary care doctor about this emergency department visit in order to obtain and review all of the testing performed so that these incidental findings can be monitored as needed. If you had an x-ray performed, please understand that some fractures or other findings may not be seen on the initial set of x-rays. If your symptoms persist you might need a repeat set of x-rays to check for such a fracture. If you had a laceration evaluated, please understand that foreign bodies such as glass or wood may not be visible to the naked eye or on plain x-rays. If the wound becomes red, swollen, increasingly more painful or if there is any drainage from the wound, please have it reevaluated by a physician for the possibility of a retained foreign body. If you're unable to follow up as outlined in the discharge instructions please return to the emergency department. Thank you for choosing the [facility] Emergency Department for your care. It was a pleasure to serve you today. Panchito Blancas M.D. [facility] (Magalis OLMEDO,Panchito Fernandez) Critical Care Note Critical Care Note Critical Care Time: non-applicable (Gamal OLMEDO,Yonatan Wong)
[2018-03-15] MEDS ORDERED: DOXYCYCLINE HY100 M4 PO (06:20)
[2018-03-15 06:22] LABS: ABSOLUTE BASOPHIL COUNT 0.1 /CUMM (0.0-0.2); ABSOLUTE EOSINOPHIL COUNT 0.3 /CUMM (0.0-0.7); ABSOLUTE GRANULOCYTE CT 8.6 /CUMM (1.4-6.5); ABSOLUTE LYMPH COUNT 1.1 /CUMM (1.2-3.4); ABSOLUTE MONOCYTE COUNT 1.1 /CUMM (0.10-0.60); BASOPHIL % 0.6 % (0.0-2.0); EOSINOPHIL % 2.9 % (0-5); GRANULOCYTE % 76.8 % (42.2-75.2); HEMATOCRIT 38.9 % (42-52); MEAN CORPUSCULAR HGB 33.2 PG (27.0-31.0); MEAN CORPUSCULAR HGB CONC 34.3 G/DL (33.0-37.0); MEAN CORPUSCULAR VOLUME 96.8 FL (80.0-94.0); MEAN PLATELET VOLUME 6.5 FL (7.4-10.4); PLATELET COUNT 277 /CUMM (130-400); RBC DISTRIBUTION WIDTH 14.5 % (11.5-14.5); RED BLOOD CELL CT 4.02 /CUMM (4.70-6.10); WHITE BLOOD CELL COUNT 11.3 /CUMM (4.8-10.8)
--- NOTE | 2018-03-15 06:24 | RADIOLOGY REPORT ---
EXAMINATION: XR PORTABLE CHEST CLINICAL INFORMATION: Chest pain COMPARISON: 03/04/2018 TECHNIQUE: Portable frontal view of the chest was obtained. FINDINGS: The lungs are clear with no focal consolidation. No evidence of pneumothorax, pulmonary edema, or pleural effusions. The cardiomediastinal silhouette is unremarkable. No acute osseous findings. IMPRESSION: No acute cardiopulmonary findings.
[2018-03-15 07:43] VITALS: BP 132/71
== END 2018-03-15 10:30 ==
LOC: ERH 05:18
PROVIDERS: Pediatrics
DX: N41.9 Inflammatory disease of prostate, unspecified (principal); G70.00 Myasthenia gravis without (acute) exacerbation; R53.1 Weakness; R05 Cough; R07.89 Other chest pain; E03.9 Hypothyroidism, unspecified
CPT/HCPCS: 71045; 81001; 87086; 93005; 93010

== ENCOUNTER 2018-03-15 23:25 | Inpatient (IN) | payer OTHER ==
[~2018-03-15] VITALS: Ht 179.1 cm; Wt 100.7 kg
[~2018-03-15 23:25] MED LIST changes: +DOXYCYCLINE HY100 M4 PO
--- NOTE | 2018-03-16 00:06 | ED GENERAL ADULT ---
History of Present Illness General Chief Complaint: General Adult Stated Complaint: PER PT SEEN HERE LAST NIGHT, MULTIPLE COMPLAINTS Source: patient, old records Exam Limitations: no limitations Vital Signs & Intake/Output Vital Signs & Intake/Output Vital Signs Date Time Temp Pulse Resp B/P B/P Pulse O2 O2 Flow FiO2 Mean Ox Delivery Rate 03/16 0005 Room Air 03/15 2351 101.3 100 18 109/65 98 Room Air ED Intake and Output 03/16 0000 03/15 1200 Intake Total Output Total Balance Patient 222 lb Weight Weight Reported by Patient Measurement Method Allergies Coded Allergies: cephalexin (From KEFLEX) (HIVES 03/15/18) levofloxacin (HIVES 03/15/18) Reconcile Medications Albuterol Sulfate (Proair Hfa) 90 MCG HFA.AER.AD 2 PUF INH AD PRN RESP. ( Reported) Azathioprine 50 MG TABLET 1 TAB PO DAILY MYASTHENIA GRAVIS (Reported) Bepotastine Besilate (Bepreve) 1.5 % DROPS 1 GTT OU PRN BOTH EYES (Reported) Cyanocobalamin (Vitamin B-12) (Cyanocobalamin Injection) 1,000 MCG/ML VIAL 1 ML IM Q30D SUPPLEMENT (Reported) Doxycycline Hyclate 100 MG TABLET 1 TAB PO BID PROSTATITIS Ergocalciferol (Vitamin D2) (Vitamin D2) 50,000 UNIT CAPSULE 1 CAP PO Q30D SUPPLEMENT (Reported) Escitalopram Oxalate 10 MG TABLET 1 TAB PO DAILY MENTAL HEALTH (Reported) Famotidine 40 MG TABLET 1 TAB PO QAM GI (Reported) Hyoscyamine Sulfate (Levsin-Sl) 0.125 MG TAB.SUBL 1 TAB SL Q4P PRN abdominal cramps Ipratropium/Albuterol Sulfate (Combivent Respimat Inhal Wright) 20 MCG-100 MCG/ ACTUATION MIST.INHAL 1 SPRY INH BID wheezing Levothyroxine Sodium 175 MCG TABLET 1 TAB PO DAILY THYROID (Reported) Loperamide HCl (Imodium A-D) 2 MG TABLET 0 PO SEE ADMIN CRITERIA PRN diarrhea 1 tab after each loose stool up to 7 per day Multivitamin (Multi-Vitamin Daily) 1 EACH TABLET 1 TAB PO D HEALTH SUPPLEMENT (Reported) Olopatadine HCl (Pazeo) 0.7 % DROPS 1 DROP OU AD PRN ALLERGIES (Reported) Ondansetron (Zofran Odt) 4 MG TAB.RAPDIS 1 TAB SL TID PRN n/v Oxymetazoline HCl (Afrin) 0.05 % SPRAY 2 SPRAY NASB Q12H SINUSES (Reported) Prednisone 10 MG TABLET 30 MG PO DAILY STEROID (Reported) Simvastatin (Simvastatin*) 40 MG TABLET 1 TAB PO QPM CHOLESTEROL (Reported) Valacyclovir HCl (Valacyclovir) 1,000 MG TABLET 1 TAB PO PRN COLD SORES ( Reported) Triage Note: TRIAGE: PATIENT TO ER W/ MULTIPLE COMPLAINTS, REPORTING "ALL THE SAME YESTERDAY;" "BOLIVAR, FEVER, SOB, EQUILIBRIUM IS OFF, DIZZINESS, SHAKING LIKE A LEAF, CHILLS, DIRECTIONS ARE OFF." PATIENT ALERT AND ORIENTED X3, AMBULATES W/ STABLE GAIT. GIVEN ABX RX LAST NIGHT, TAKING W/O RELIEF PER PATIENT. PATIENT ARRIVES BUNDLED W/ [place]AUDHARY ON WELL IN HIS WINTER JACKET AND SWEATPANTS.. REPORTS "FEELING HOT." Triage Nurses Notes Reviewed? yes HPI: Patient was seen earlier this morning for a low-grade fever. Patient was started on doxycycline for presumed UTI. Patient took 2 doses but then tonight had shaking chills. Patient is on 30 mg of prednisone a day. Patient denies any coughing. There is no headache. He does have anorexia but there is no nausea or vomiting. Past History Travel History Traveled to [place] past 21 day No Medical History Any Pertinent Medical History? 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 No Review of Systems Review of Systems Constitutional: Reports: see HPI, chills, fever, weakness. EENTM: Reports: no symptoms. Respiratory: Reports: no symptoms. Cardiovascular: Reports: no symptoms. GI: Reports: see HPI. Genitourinary: Reports: no symptoms. Musculoskeletal: Reports: no symptoms. Skin: Reports: no symptoms. Neurological/Psychological: Reports: no symptoms. Hematologic/Endocrine: Reports: no symptoms. Immunologic/Allergic: Reports: no symptoms. All Other Systems: Reviewed and Negative Physical Exam Physical Exam General Appearance: well developed/nourished, alert, awake, anxious, moderate distress Head: atraumatic, normal appearance Eyes: Bilateral: PERRL, EOMI. Ears, Nose, Throat: normal pharynx, normal ENT inspection, hearing grossly normal Neck: normal inspection, supple, full range of motion Respiratory: normal breath sounds, chest non-tender, no respiratory distress, lungs clear Cardiovascular: regular rate/rhythm, normal peripheral pulses Gastrointestinal: normal bowel sounds, soft, non-tender, no organomegaly Back: normal inspection, normal range of motion Extremities: normal inspection, normal capillary refill, normal range of motion, no edema Neurologic/Psych: no motor/sensory deficits, awake, alert, oriented x 3, normal gait, normal mood/affect Skin: intact, normal color, warm/dry Lymphatic: no anterior cervical gerald Core Measures ACS in differential dx? No CVA/TIA Diagnosis: No Sepsis Present: No Sepsis Focused Exam Completed? No Progress Differential Diagnoses I considered the following diagnoses in my evaluation of the patient: [SIRS, sepsis, UTI, pneumonia, electrolyte abnormality] Plan of Care: Orders Procedure Date/time Status Heart Healthy Diet 03/16 B Active LACTIC ACID 03/16 030 Active ED Holding Orders 03/16 50 Active Admit to inpatient 03/16 005 Active Vital Signs 03/16 005 Active Code Status 03/16 005 Active XRY-CHEST XRAY, TWO VIEWS 03/16 7 Active CULTURE,URINE 03/16 7 Active BLOOD CULTURE 03/16 7 Active URINALYSIS 03/16 7 Active TROPONIN LEVEL 03/16 7 Active LACTIC ACID 03/16 7 Active COMPREHENSIVE METABOLIC PANEL 03/16 7 Active CBC WITHOUT DIFFERENTIAL 03/16 7 Active EKG 03/16 7 Active Current Medications Sig/Enriqueta Start time Last Medication Dose Stop Time Status Admin Clindamycin 600 MG ONCE ONE 03/16 0030 AC (Cleocin) 03/16 005 Dextrose/Water 50 ML (D5W) Hydrocortisone 100 MG ONE ONE 03/16 15 AC Sodium Succinate 03/16 16 (Solucortef) Sodium Chloride 1,000 ML BOLUS ONE 03/16 15 CANr (Normal Saline 0.9%) 03/16 114 Microbiology 03/16 7 URINE ROUT: Urine Culture - ORD 03/16 7 BLOOD: Blood Culture - ORD 03/16 7 BLOOD: Blood Culture - ORD Diagnostic Imaging: Viewed by Me: Radiology Read. Discussed w/RAD: Radiology Read. Initial ED EKG: NSR, nonspecific ST T wave chg Prior EKG: unchanged Departure Departure Disposition: STILL A PATIENT Condition: Stable Clinical Impression Primary Impression: SIRS (systemic inflammatory response syndrome) Referrals: Kathleen Rodrigues MD (PCP/Family) Departure Forms: Customer Survey General Discharge Information Admission Note Spoke With: Betzaida OLMEDO,Yaritza Documentation of Exam: Documentation of any treatments & extenuating circumstances including Concerns Regarding Discharge (functional status, medication knowledge or non-compliance, living conditions, etc.) that warrant an admission rather than observation: [IV fluids, IV antibiotics, stress dose steroids, follow-up cultures, ID consultation, patient is at high risk given the 30 mg of prednisone he takes on a daily basis and he is febrile to 101.] Critical Care Note Critical Care Note Critical Care Time: non-applicable
--- NOTE | 2018-03-16 01:01 | RADIOLOGY REPORT ---
EXAMINATION: XR CHEST CLINICAL INFORMATION: Fever COMPARISON: 03/15/2018 TECHNIQUE: 2 views of the chest were obtained. FINDINGS: Lung volumes are symmetric. No focal consolidation is seen. No evidence of pneumothorax, pleural effusion, or pulmonary edema. The cardiomediastinal contour is unremarkable. No acute osseous findings are seen. IMPRESSION: No acute cardiopulmonary findings.
--- NOTE | 2018-03-16 01:14 | History & Physical ---
Cuauhtemoc Choudhary MD 03/16/18 0110: General Information and HPI MD Statement: I have seen and personally examined YVON RICE and documented this H&P. The patient is a 72 year old M who presented with a patient stated chief complaint of fever and malaise. Source of Information: patient, old records Exam Limitations: no limitations History of Present Illness: 72 year old male with PMH significant for HLD, BPH, depression, and myasthenia gravis presents with fevers and multiple complaints after multiple recent ED visits 02/14, 02/17, 02/19, 03/04, 03/05, and two visits on 03/15. He had complaints ranging from dry cough and wheezing prescribed duonebs, Amoxicillin x 10days and promethazine for bronchitis on 02/17/18, followed by abdominal pain and diarrhea, prescribed symptom management medications zofran/levsin/imodium on 03/05, and yesterday he was prescribed doxycycline for UTI/prostatitis with UA revealing 10 -15 WBCs and trace leukocyte esterase and prostate tenderness on rectal examination. He took two doses of doxycycline before presenting again to the emergency department stating he had recurrent subjective fevers, chills, and felt off balance. He was diagnosed with myasthenia gravis approximately 5 months ago. He originally had droopy eye lids, couldn't keep them open, difficulty driving and saw an mechanical engineering director who referred him to Dr. Sainz at [facility]. He was started on high dose prednisone and azathioprine. His steroids were 60mg daily and are now tapered to 30->25mg alternating doses. His azathioprine dose was increased one week ago from 50mg daily to 50mg po bid and his symptoms have dramatically improved but he has gained 20-25lbs and noticed some increased bruising. He currently has multiple complaint but none are severe. His primary complaint is subjective fevers and chills for the past two days. He states the past two nights hes gone to bed at 9PM and awoken by 11AM with shaking chills, fevers, and sweats. He is unable to correlate any other symptoms with the fevers and chills. He had more upper respiratory symptoms several weeks ago and still complains of nonproductive cough, sore throat, and feeling of mucous in the back of his throat that are improving. He also reports some chronic dysphagia associated with myasthenia and heart burn. He denies any abdominal pain, although he did report recent suprapubic pain. He has not had any diarrhea, but does state he has felt nauseous, gaseous and not been eating well but very thirsty. His bowel movements have been soft but not loose or diarrhea, he takes a fiber supplement at home. He denies any dysuria, hematuria, or urinary frequency. In regards to his balance, he thinks he has had some gait instability at home, even on flat surfaces, but denies any falling. He has had some tinnitus intermittently but none currently. He has no headache currently but has had a frontal headache mild attributed to seasonal allergies. He has no neck stiffness or photophobia. He denied any sick contacts. He describes a generalized malaise for the past month or two. He is a former smoker, , lives by himself, son is nearby, and is a retired former employee of [employer]. He likes to spend time outdoors but hasn't recently because of the heat, feeling sick, and malaise. He denied any tick bites. In the ED, he was febrile to 101.1, mild pyuria on urinalysis, mild leukocytosis on chronic steroids, unremarkable chemistry, negative lactic acid and normal chest x-ray. He was treated with 30cc/kg of crystalloid and received a dose of Clindamycin 600mg IV and admitted to general medicine with fever. Allergies/Medications Allergies: Coded Allergies: cephalexin (From KEFLEX) (HIVES 03/15/18) levofloxacin (HIVES 03/15/18) Home Med list Azathioprine 50 MG TABLET 1 TAB PO BID MYASTHENIA GRAVIS (Reported) Doxycycline Hyclate 100 MG TABLET 1 TAB PO BID PROSTATITIS Escitalopram Oxalate 10 MG TABLET 1 TAB PO DAILY MENTAL HEALTH (Reported) Famotidine 40 MG TABLET 1 TAB PO QAM GI (Reported) Levothyroxine Sodium 175 MCG TABLET 1 TAB PO DAILY THYROID (Reported) Multivitamin (Multi-Vitamin Daily) 1 EACH TABLET 1 TAB PO D HEALTH SUPPLEMENT (Reported) Prednisone 10 MG TABLET 30 MG PO DAILY STEROID (Reported) Simvastatin (Simvastatin*) 40 MG TABLET 1 TAB PO QPM CHOLESTEROL (Reported) Valacyclovir HCl (Valacyclovir) 1,000 MG TABLET 1 TAB PO PRN COLD SORES ( Reported) Compliance With Home Meds: GOOD Past History Travel History Traveled to [place] past 21 day No Medical History Neurological: myasthenia gravis EENT: cataracts Cardiovascular: hyperlipidemia Respiratory: NONE Gastrointestinal: constipation Hepatic: NONE Renal: ENLARGED PROSTATE Musculoskeletal: TIBIA FX TORN ROTATOR CUFF Psychiatric: depression Endocrine: hypothyroidism Blood Disorders: NONE Cancer(s): 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 Home Who Do You Live With? self Services at Home: None Smoking Status: Former Smoker ETOH Use: denies use Illicit Drug Use: denies illicit drug use Functional Ability ADLs Independent: dressing, eating, toileting, bathing. Ambulation: independent IADLs Independent: shopping, housework, finances, food prep, telephone, transportation , medication admin. Employment History Employment Retired Profession/Employer [employer] Review of Systems Review of Systems Constitutional: Reports: chills, fever, malaise, weakness. Denies: diaphoresis. EENTM: Reports: throat pain. Denies: double vision, visual changes, eye pain, nasal congestion, nasal pain, tooth pain. Cardiovascular: Denies: chest pain, edema, orthopena, palpitations, peripheral edema, syncope. Respiratory: Reports: cough. Denies: hemoptysis, short of breath, sputum production, wheezing. GI: Reports: abdominal pain, nausea. Denies: constipation, diarrhea, melena, bloody stool, changes in stool, vomiting. Genitourinary: Denies: dysuria, frequency, hematuria, pain, urgency. Musculoskeletal: Denies: back pain, joint pain, muscle pain. Skin: Denies: cysts, change in skin color, erythema, jaundice. Neurological/Psychological: Reports: depressed, headache. Denies: anxiety, ataxia, confusion, numbness, paresthesia, pre-existing deficit, petit mal seizures, unable to move lower ext, unable to move upper ext, weakness. Hematologic/Endocrine: Reports: bruising. Immunologic/Allergic: Reports: other (myasthenia gravis). All Other Systems: Reviewed and Negative Exam & Diagnostic Data Last 24 Hrs of Vital Signs/I&O Vital Signs Date Time Temp Pulse Resp B/P B/P Pulse O2 O2 Flow FiO2 Mean Ox Delivery Rate 03/16 0122 101.3 03/16 0005 Room Air 03/15 2351 101.3 100 18 109/65 98 Room Air Intake & Output 03/16 0800 03/16 0000 03/15 1600 Intake Total Output Total Balance Patient 100.698 kg Weight Weight Reported by Patient Measurement Method Physical Exam General Appearance Alert, Oriented X3, Cooperative, No Acute Distress Skin No Rashes, No Breakdown, some bruising and ecchymosis on forearms and anterior lower extremities Skin Temp/Moisture Exam: Hot/Dry Sepsis Skin Exam (color): Normal for Ethnicity HEENT Atraumatic, PERRLA, EOMI, mucous membranes dry Neck Supple, No JVD, No thryomegaly, +2 Carotid Pulse wo Bruit, No LAD Lymphatic Cervical nl Cardiovascular Regular Rate, Normal S1, Normal S2, No Murmurs Lungs Clear to Auscultation, Normal Air Movement Abdomen Normal Bowel Sounds, Soft, No Tenderness, No Masses Neurological Normal Gait, Normal Speech, Strength at 5/5 X4 Ext, Normal Tone, Sensation Intact, Cranial Nerves 3-12 NL Extremities No Clubbing, No Cyanosis, No Edema, Normal Pulses, No Tenderness/ Swelling Vascular Normal Pulses, Pulses Symmetrical Sepsis Peripheral Pulse Location: Radial Sepsis Peripheral Pulse Exam: Normal Sepsis Cap Refill Exam: <2 Sec Last 24 Hrs of Labs/[place]: Laboratory Tests 03/16/18 0056: Urine Color YEL, Urine Clarity CLEAR, Urine pH 6.0, Ur Specific [place] 1.025, Urine Protein NEG, Urine Ketones NEG, Urine Nitrite NEG, Urine Bilirubin NEG, Urine Urobilinogen 0.2, Ur Leukocyte Esterase NEG, Ur Microscopic SEDIMENT EXAMINED, Urine RBC 5-10 H, Urine WBC 1-3 H, Ur Epithelial Cells RARE, Urine Bacteria RARE H, Urine Mucus FEW, Urine Hemoglobin MOD H, Urine Glucose NEG 03/16/18 0049: Anion Gap 7, Estimated GFR > 60, BUN/Creatinine Ratio 18.0, Glucose 124 H, Lactic Acid 1.8, Calcium 8.9, Total Bilirubin 1.0, AST 28, ALT 40, Alkaline Phosphatase 74, Troponin I Pending, Total Protein 6.0 L, Albumin 3.6, Globulin 2.4, Albumin/Globulin Ratio 1.5, CBC w Diff MAN DIFF ORDERED, RBC 3.73 L, MCV 96.2 H, MCH 33.1 H, MCHC 34.4, RDW 14.1, MPV 7.0 L, Gran % 84.1 H, Lymphocytes % 8.3 L, Monocytes % 5.8, Eosinophils % 1.7, Basophils % 0.1, Absolute Granulocytes 10.1 H, Segmented Neutrophils 75, Band Neutrophils 2, Absolute Lymphocytes 1.0 L, Lymphocytes 11 L, Monocytes 9, Absolute Monocytes 0.7 H, Eosinophils 2, Absolute Eosinophils 0.2, Absolute Basophils 0, Platelet Estimate ADEQUATE, Polychromasia 1+, Poikilocytosis 1+, Ovalocytes 1+, Fld Total RBCs Counted 100 Microbiology 03/16 0202 BLOOD: Blood Culture - RECD 03/16 0056 URINE ROUT: Urine Culture - RECD 03/16 004 BLOOD: Blood Culture - RECD Assessment/Plan Assessment: 72 year old male with PMH significant for HLD, BPH, depression, and myasthenia gravis on azathioprine and chronic prednisone presents with fevers and multiple complaints after multiple recent ED, last treated with doxycycline x 2 dooses for prostatitis/UTI. The patient is febrile to 101.1 on today's ED visit with borderline tachycardia and leukocytosis concerning for sepsis. Fever: Doesn't clinically appear toxic/septic SIRS criteria positive for fever, tachycardia, and leukocytosis, SBP 109, lactic acid < 2 Heart rate of 100 could be physiological with fever Mild leukocytosis confounded by chronic steroids WBC 12,000 with 2 bands, repeat CBC in AM No signs or symptoms to localize source of infection to warrant further imaging at this time No CVA or abdominal tenderness, no productive cough No role for LP at this time, no confusion, no headache, no altered mentation, normal gait and strength, nonfocal neurological examination Was treated with doxycycline for prostatitis, considered Bactrim and Cipro for coverage Allergic to fluoroquinolones and cephalosporins Chest x-ray negative for any evidence of infection Urinalysis mild pyuria and leukocyte esterase Given 30cc/kg crystalloid in the ED, give additional one liter of normal saline Continue clindamycin 600mg IV Q8H Follow up blood and urine cultures Infectious disease consultation in the morning HLD: Continue statin Hypothyroidism: Continue synthroid Check TSHR Myasthenia gravis: Continue azathioprine 50mg po bid Continue prednisone 30mg po qd Given stress dose steroids in the ED with hydrocortisone 100mg Macrocytic anemia: Start B12 supplementation, given azathioprine Check B12 and folate Heart healthy diet DVT ppx-ALPS, heparin sc Full code As Ranked By This Provider Problem List: 1. Hypothyroidism 2. SIRS (systemic inflammatory response syndrome) 3. Myasthenia gravis 4. Fever Core Measures/Misc (04/05) Acute Coronary Syndrome ACS Diagnosis: No Congestive Heart Failure Congestive Heart Failure Diagnosis No Cerebrovascular Accident CVA/TIA Diagnosis: No VTE (View Protocol) VTE Risk Factors Age>40 No Mechanical VTE Prophylaxis d/t N/A MechProphylax Ordered No VTE Pharm Prophylaxis d/t NA PharmProphylax ordered Sepsis (View protocol) Sepsis Present: No If YES complete Sepsis Event Note If YES complete Sepsis Event Note Yaritza Huston MD 03/16/18 2925: Core Measures/Misc (04/05) Sepsis (View protocol) If YES complete Sepsis Event Note If YES complete Sepsis Event Note Attending MD Review Statement Attending Statement Attending MD Statement: examined this patient, discuss w/resident/PA/EXTRACTOR FILLER, agreed w/resident/PA/EXTRACTOR FILLER, reviewed EMR data (avail) Attending Assessment/Plan: 72M PMH myasthenia gravis on chronic Prednisone, HTN, HLD presenting with fever and shaking chills. Seen in ER yesterday for similar, given Doxycycline for presumed urinary source and sent home. Chills continued and fever now up to 101.3. Complains only of fatigue and weakness, denies cardiac, pulmonary, GI, or urinary symptoms. No meningeal signs, denying photophobia, neck stiffness, focal neurological symptoms. He has a mild headache. Has a history of prostate surgery back in July (artery embolization). Recently had his Azathioprine increased and his Prednisone decreased for MG. Labs show WBC 12, slightly dirty urine, normal renal function. Will continue Clinda for presumed UTI (cephalosporin and quinolone allergic - hives with both), urine and blood cultures, ID consult, consider LP if warranted, Lyme titer.
[2018-03-16 01:22] LABS: ABSOLUTE BASOPHIL COUNT 0 /CUMM (0.0-0.2); ABSOLUTE EOSINOPHIL COUNT 0.2 /CUMM (0.0-0.7); ABSOLUTE GRANULOCYTE CT 10.1 /CUMM (1.4-6.5); ABSOLUTE MONOCYTE COUNT 0.7 /CUMM (0.10-0.60); BASOPHIL % 0.1 % (0.0-2.0); EOSINOPHIL % 1.7 % (0-5); GRANULOCYTE % 84.1 % (42.2-75.2); HEMATOCRIT 35.9 % (42-52); MEAN CORPUSCULAR HGB 33.1 PG (27.0-31.0); MEAN CORPUSCULAR HGB CONC 34.4 G/DL (33.0-37.0); MEAN CORPUSCULAR VOLUME 96.2 FL (80.0-94.0); PLATELET COUNT 253 /CUMM (130-400); RBC DISTRIBUTION WIDTH 14.1 % (11.5-14.5); RED BLOOD CELL CT 3.73 /CUMM (4.70-6.10)
[2018-03-16 08:00] VITALS: BP 124/70
[2018-03-16 08:21] LABS: ABSOLUTE BASOPHIL COUNT 0 /CUMM (0.0-0.2); ABSOLUTE EOSINOPHIL COUNT 0 /CUMM (0.0-0.7); ABSOLUTE GRANULOCYTE CT 7.8 /CUMM (1.4-6.5); ABSOLUTE LYMPH COUNT 0.5 /CUMM (1.2-3.4); ABSOLUTE MONOCYTE COUNT 0.4 /CUMM (0.10-0.60); BASOPHIL % 0 % (0.0-2.0); EOSINOPHIL % 0.3 % (0-5); HEMATOCRIT 32.5 % (42-52); MEAN CORPUSCULAR HGB 33.5 PG (27.0-31.0); MEAN CORPUSCULAR VOLUME 95.7 FL (80.0-94.0); PLATELET COUNT 235 /CUMM (130-400); RBC DISTRIBUTION WIDTH 14.1 % (11.5-14.5); WHITE BLOOD CELL COUNT 8.8 /CUMM (4.8-10.8)
--- NOTE | 2018-03-16 08:25 | Event Note ---
See Addendum Event Note Event Note: 72 year old male with PMH significant for HLD, BPH, depression, and myasthenia gravis on azathioprine and chronic prednisone presents with fevers and multiple complaints after multiple recent ED, last treated with doxycycline x 2 doses for prostatitis/UTI. The patient is febrile to 101.1 on today's ED visit with borderline tachycardia and leukocytosis concerning for sepsis. -Fever: Doesn't clinically appear toxic/septic but does meet SIRS criteria positive for fever, tachycardia, and leukocytosis, with a suspected source (i.e. septic) to see. No lactic acidosis. Patient's mild leukocytosis confounded by chronic steroids, WBC 12,000 with 2 bands, repeat CBC in AM. No CVA or abdominal tenderness, no productive cough. Patient does however have pain on digital rectal exam. For this reason he was started on antibiotics 2 days ago for suspected prostatitis. As patient has a worsening symptoms, we have stopped doxycycline and started clindamycin as patient is allergic to fluoroquinolones and cephalosporins. * Continue antibiotic coverage with clindamycin 600 mg IV every 8 hours with infectious disease consult * To rule out other sources of infection, we did chest x-ray which is negative for any evidence of infection, blood cultures which are so far negative and will need to be followed up, urine culture which is additionally so far negative. Urinalysis showed only mild pyuria and leukocyte esterase. * Given 2 L of fluids for patient's sepsis, no evidence of JOEL * Patient has a noted history of tick bites and unexplained fever, we will do Lyme disease antibody testing. Platelet counts are normal of note. HLD: Continue statin Hypothyroidism: Continue synthroid Thyroid function tests normal Myasthenia gravis: Continue azathioprine 50mg po bid Continue prednisone 30mg po qd Given stress dose steroids in the ED with hydrocortisone 100mg Macrocytic anemia: Started B12 supplementation, given azathioprine Checked B12 and folate levels which are normal Heart healthy diet DVT ppx-ALPS, heparin sc Full code
--- NOTE | 2018-03-16 11:30 | PN- Att Addend ---
Attending Addendum Attending Brief Note Patient seen and examined, feels okay. Currently he is afebrile. Patient is admitted with fever and malaise. Vital Signs Date Time Temp Pulse Resp B/P B/P Pulse O2 O2 Flow FiO2 Mean Ox Delivery Rate 03/16 0907 98.9 70 20 124/70 98 Room Air 03/16 0641 97.9 67 17 126/70 95 Room Air 03/16 0442 Room Air 03/16 0235 99.3 03/16 0231 99.3 74 18 115/58 92 Room Air 03/16 0122 101.3 03/16 0005 Room Air 03/15 2351 101.3 100 18 109/65 98 Room Air on exam; aox3, nad. cv; s1, s2, rrr resp; clear abd; soft, nt, bs+ ext; no edema skin; multiple areas of bruising and skin tears on lower extremities and areas of bruising on upper extremities Laboratory Tests 03/16 03/16 0707 0307 Chemistry Sodium (137 - 145 mmol/L) 136 L Potassium (3.5 - 5.1 mmol/L) 4.4 Chloride (98 - 107 mmol/L) 107 Carbon Dioxide (22 - 30 mmol/L) 25 Anion Gap (5 - 16) 4 L BUN (9 - 20 mg/dL) 16 Creatinine (0.7 - 1.2 mg/dL) 0.8 Estimated GFR (>60 ml/min) > 60 BUN/Creatinine Ratio (7 - 25 %) 20.0 Lactic Acid Cancelled Troponin I (<0.11 ng/ml) < 0.01 Vitamin B12 (239 - 931 pg/mL) 750 Folate (2.76 - 20.0 ng/mL) 16.6 TSH &T3 &Free T4 Intrp (0.27 - 4.20 uIU/mL) 0.428 Hematology CBC w Diff NO MAN DIFF REQ WBC (4.8 - 10.8 /CUMM) 8.8 RBC (4.70 - 6.10 /CUMM) 3.40 L Hgb (14.0 - 18.0 G/DL) 11.4 L Hct (42 - 52 %) 32.5 L MCV (80.0 - 94.0 FL) 95.7 H MCH (27.0 - 31.0 PG) 33.5 H MCHC (33.0 - 37.0 G/DL) 35.0 RDW (11.5 - 14.5 %) 14.1 Plt Count (130 - 400 /CUMM) 235 MPV (7.4 - 10.4 FL) 7.0 L Gran % (42.2 - 75.2 %) 89.0 H Lymphocytes % (20.5 - 51.1 %) 5.7 L Monocytes % (1.7 - 9.3 %) 5.0 Eosinophils % (0 - 5 %) 0.3 Basophils % (0.0 - 2.0 %) 0 Absolute Granulocytes (1.4 - 6.5 /CUMM) 7.8 H Absolute Lymphocytes (1.2 - 3.4 /CUMM) 0.5 L Absolute Monocytes (0.10 - 0.60 /CUMM) 0.4 Absolute Eosinophils (0.0 - 0.7 /CUMM) 0 Absolute Basophils (0.0 - 0.2 /CUMM) 0 Serology Lyme Disease Antibody Pending 03/16 03/16 0056 0049 Chemistry Sodium (137 - 145 mmol/L) 135 L Potassium (3.5 - 5.1 mmol/L) 4.1 Chloride (98 - 107 mmol/L) 99 Carbon Dioxide (22 - 30 mmol/L) 28 Anion Gap (5 - 16) 7 BUN (9 - 20 mg/dL) 18 Creatinine (0.7 - 1.2 mg/dL) 1.0 Estimated GFR (>60 ml/min) > 60 BUN/Creatinine Ratio (7 - 25 %) 18.0 Glucose (65 - 99 mg/dL) 124 H Lactic Acid (0.7 - 2.1 mmol/L) 1.8 Calcium (8.4 - 10.2 mg/dL) 8.9 Total Bilirubin (0.2 - 1.3 mg/dL) 1.0 AST (17 - 59 U/L) 28 ALT (21 - 72 U/L) 40 Alkaline Phosphatase (< 127 U/L) 74 Troponin I (<0.11 ng/ml) < 0.01 Total Protein (6.3 - 8.2 g/dL) 6.0 L Albumin (3.5 - 5.0 g/dL) 3.6 Globulin (1.9 - 4.2 gm/dL) 2.4 Albumin/Globulin Ratio (1.1 - 2.2 %) 1.5 Hematology CBC w Diff MAN DIFF ORDERED WBC (4.8 - 10.8 /CUMM) 12.0 H RBC (4.70 - 6.10 /CUMM) 3.73 L Hgb (14.0 - 18.0 G/DL) 12.3 L Hct (42 - 52 %) 35.9 L MCV (80.0 - 94.0 FL) 96.2 H MCH (27.0 - 31.0 PG) 33.1 H MCHC (33.0 - 37.0 G/DL) 34.4 RDW (11.5 - 14.5 %) 14.1 Plt Count (130 - 400 /CUMM) 253 MPV (7.4 - 10.4 FL) 7.0 L Gran % (42.2 - 75.2 %) 84.1 H Lymphocytes % (20.5 - 51.1 %) 8.3 L Monocytes % (1.7 - 9.3 %) 5.8 Eosinophils % (0 - 5 %) 1.7 Basophils % (0.0 - 2.0 %) 0.1 Absolute Granulocytes (1.4 - 6.5 /CUMM) 10.1 H Segmented Neutrophils (42.2 - 75.2 %) 75 Band Neutrophils (0.0 - 5.0 %) 2 Absolute Lymphocytes (1.2 - 3.4 /CUMM) 1.0 L Lymphocytes (20.5 - 51.1 %) 11 L Monocytes (1.7 - 9.3 %) 9 Absolute Monocytes (0.10 - 0.60 /CUMM) 0.7 H Eosinophils (0 - 5.0 %) 2 Absolute Eosinophils (0.0 - 0.7 /CUMM) 0.2 Absolute Basophils (0.0 - 0.2 /CUMM) 0 Platelet Estimate (ADEQUATE) ADEQUATE Polychromasia 1+ Poikilocytosis 1+ Ovalocytes 1+ Other Body Source Fld Total RBCs Counted (%) 100 Urines Urine Color (YEL,AMB,STR) YEL Urine Clarity (CLEAR) CLEAR Urine pH (5.0 - 8.0) 6.0 Ur Specific [place] (1.001 - 1.035) 1.025 Urine Protein (NEG,<30 MG/DL) NEG Urine Ketones (NEG) NEG Urine Nitrite (NEG) NEG Urine Bilirubin (NEG) NEG Urine Urobilinogen (0.1 - 1.0 EU/dl) 0.2 Ur Leukocyte Esterase (NEG) NEG Ur Microscopic SEDIMENT EXAMINED Urine RBC (0 - 5 /HPF) 5-10 H Urine WBC (0 - 2 /HPF) 1-3 H Ur Epithelial Cells (NONE,FEW) RARE Urine Bacteria (NEG/NONE) RARE H Urine Mucus (FEW,NONE) FEW Urine Hemoglobin (NEG) MOD H Urine Glucose (N MG/DL) NEG A/P; 72 y/o M with pmh sig for HLD, BPH, depression, and myasthenia gravis which was recently diagnosed currently on azthioprine and prednisone therapy, multiple ED visits with multiple complaints including dry cough wheezing, abdominal pain diarrhea and then finally visited one day prior to admission and was diagnosed with UTI and possible prostatitis and was discharged on doxycycline. Presented again a day later with consistent symptoms of fever and generalized weakness. Patient is admitted with fever with a question of UTI and ruling out Lyme disease as Lyme antibodies pending. He does admit to multiple tick bites over the last few months. Currently afebrile. Patient was started on clindamycin. Source of infection is unclear. Patient certainly could have portal of entry through his open areas on the skin. His current urinalysis is not that impressive. So far cultures are negative. Infectious disease consult is pending. Continue the rest of the medications. Patient on heparin subcu for DVT prophylaxis.
--- NOTE | 2018-03-16 13:45 | Patient Discharge Instructions ---
Discharge Instructions General Discharge Information You were seen/treated for: FEVER Prostate infection/inflammation Special Instructions: Please see your primary care within 1 week after discharge Your Azathiopurine has been stopped due to high suspicion that it caused you to have fevers, please follow up with [facility] regarding a replacement medication. Schedule with them within a few days after discharge Continue you Prednisone 30 mg daily until you see neurologist Acute Coronary Syndrome Inclusion Criteria At DC or during hospital stay patient has or had the following: ACS DIAGNOSIS No Discharge Core Measures Meds if any: Prescribed or Continued at Discharge Meds if any: NOT Prescribed or Continued at Discharge Congestive Heart Failure Inclusion Criteria At DC or during hospital stay patient has or had the following: CHF DIAGNOSIS No Discharge Core Measures Meds if any: Prescribed or Continued at Discharge Meds if any: NOT Prescribed or Continued at Discharge Cerebrovascular accident Inclusion Criteria At DC or during hospital stay patient has or had the following: CVA/TIA Diagnosis No Discharge Core Measures Meds if any: Prescribed or Continued at Discharge Meds if any: NOT Prescribed or Continued at Discharge Venous thromboembolism Inclusion Criteria VTE Diagnosis No VTE Type NONE VTE Confirmed by (Test) NONE Discharge Core Measures - Per Current guidelines, there needs to be overlap - treatment for the first 5 days of Warfarin therapy. - If discharged on Warfarin prior to 5 days of - overlap therapy, the patient will need to be - assessed for post discharge needs including - *Post discharge parental anticoagulation - *Warfarin and/or parental anticoagulation education - *Follow up date to check INR post discharge At least 5 days overlap therapy as Inpatient No Meds if any: Prescribed or Continued at Discharge Note: Overlap Therapy is Warfarin and Anticoagulant Meds if any: NOT Prescribed or Continued at Discharge
--- NOTE | 2018-03-16 17:27 | Cons- Infect Disease ---
General Information and HPI Consulting Request Date of Consult: 03/16/18 Requested By: Yaritza Huston MD Reason for Consult: Unexplained fever Source of Information: patient, old records History of Present Illness: This is a 72-year-old man, status post prostate artery embolism 7 months prior to admission at [facility] for BPH, diagnosed approximately 6 months prior to admission with myasthenia gravis after presenting with bilateral ptosis, treated initially with Prednisone, currently being tapered, with the addition of Azathioprine approximately 5 weeks prior to admission, with the dose increased 1 week prior to admission, seen in the emergency room 5 times over the past 4 weeks, initially for congestion, with a CT of the chest negative for any acute process, treated with Azithromycin, followed by Amoxicillin, without relief, but apparently given Doxycycline at a walk-in clinic, which did relieve his symptoms , seen again, approximately 10 days prior to admission, for shortness of breath, with a CTA of the chest negative, and, subsequently with abdominal pain and diarrhea, treated with Imodium, with no further symptoms, and, finally, seen one day prior to admission with the acute onset of fevers and chills, found to be afebrile with a white blood cell count of 11,000, a negative chest x-ray and a urinalysis with 5-10 RBCs and 10-15 WBCs, discharged on Doxycycline for prostatitis after a rectal exam apparently revealed tenderness of the prostate, admitted early this morning after returning to the emergency room with recurrent fevers and chills. On admission he was febrile to 101.3. Laboratory data revealed a white blood cell count of 12,000, BUN/creatinine 18 and 1.0, with normal liver enzymes. Urinalysis 5-10 RBC/1-3 WBCs. Chest x-ray was negative. He was given 1 dose of SoluCortef, then continued on prednisone, and he was begun on Clindamycin. He has remained afebrile since admission and presently offers no complaints. He does not report any recent tick or mosquito bites and states he has not been particularly active over the past several months since his diagnosis of myasthenia gravis. He has had no recent travel. Allergies/Medications Allergies: Coded Allergies: cephalexin (From KEFLEX) (HIVES 03/15/18) levofloxacin (HIVES 03/15/18) Home Med List: Azathioprine 50 MG TABLET 1 TAB PO BID MYASTHENIA GRAVIS (Reported) Doxycycline Hyclate 100 MG TABLET 1 TAB PO BID PROSTATITIS Escitalopram Oxalate 10 MG TABLET 1 TAB PO DAILY MENTAL HEALTH (Reported) Famotidine 40 MG TABLET 1 TAB PO QAM GI (Reported) Levothyroxine Sodium 175 MCG TABLET 1 TAB PO DAILY THYROID (Reported) Multivitamin (Multi-Vitamin Daily) 1 EACH TABLET 1 TAB PO D HEALTH SUPPLEMENT (Reported) Prednisone 10 MG TABLET 30 MG PO DAILY STEROID (Reported) Simvastatin (Simvastatin*) 40 MG TABLET 1 TAB PO QPM CHOLESTEROL (Reported) Valacyclovir HCl (Valacyclovir) 1,000 MG TABLET 1 TAB PO PRN COLD SORES ( Reported) Past History Travel History Traveled to [place] past 21 day No Medical History Neurological: myasthenia gravis EENT: cataracts Cardiovascular: hyperlipidemia Respiratory: NONE Gastrointestinal: constipation Hepatic: NONE Renal: benign prost hyperplasia Musculoskeletal: TIBIA FX TORN ROTATOR CUFF Psychiatric: depression Endocrine: hypothyroidism Blood Disorders: NONE Cancer(s): NONE 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 Home Who Do You Live With? self Services at Home: None Smoking Status: Former Smoker ETOH Use: denies use Illicit Drug Use: denies illicit drug use Functional Ability ADLs Independent: dressing, eating, toileting, bathing. Ambulation: independent IADLs Independent: shopping, housework, finances, food prep, telephone, transportation , medication admin. Employment History Employment: Retired Profession/Employer: [employer] Review of Systems Review of Systems Cardiovascular: Denies: chest pain. Respiratory: Reports: short of breath. GI: Denies: abdominal pain, diarrhea, nausea, vomiting. Genitourinary: Reports: frequency, nocturia. Denies: dysuria, pain, urgency. Musculoskeletal: Reports: back pain (right lower back). All Other Systems: Reviewed and Negative Exam & Diagnostic Data Last 24 Hrs of Vital Signs/I&O Vital Signs Date Time Temp Pulse Resp B/P B/P Pulse O2 O2 Flow FiO2 Mean Ox Delivery Rate 03/16 1510 98.0 70 20 138/70 98 Room Air 03/16 1151 97.5 66 20 142/68 98 Room Air 03/16 0907 98.9 70 20 124/70 98 Room Air 03/16 0800 98.9 70 20 124/70 98 Room Air 03/16 0641 97.9 67 17 126/70 95 Room Air 03/16 0442 Room Air 03/16 0235 99.3 03/16 0231 99.3 74 18 115/58 92 Room Air 03/16 0122 101.3 03/16 0005 Room Air 03/15 2351 101.3 100 18 109/65 98 Room Air Intake & Output 03/16 1600 03/16 0800 03/16 0000 Intake Total 1160 Output Total 700 Balance 460 Intake, IV 800 Intake, Oral 360 Output, Urine 700 Patient 222 lb 222 lb Weight Weight Reported by Patient Reported by Patient Measurement Method Physical Exam Other Physical Findings: He is awake and alert in no acute distress. T-max 101.3. Skin scattered abrasions with no rash. HEENT exam is negative. Neck is supple with no adenopathy. Lungs are clear. Heart regular rhythm with no murmur. Abdomen is soft, nontender with positive bowel sounds. Back questionable right CVA tenderness. Extremities no cyanosis, clubbing or edema. Neuro is without focality. Last 24 Hours of Lab Results: Laboratory Tests 03/16 03/16 0707 0307 Chemistry Sodium (137 - 145 mmol/L) 136 L Potassium (3.5 - 5.1 mmol/L) 4.4 Chloride (98 - 107 mmol/L) 107 Carbon Dioxide (22 - 30 mmol/L) 25 Anion Gap (5 - 16) 4 L BUN (9 - 20 mg/dL) 16 Creatinine (0.7 - 1.2 mg/dL) 0.8 Estimated GFR (>60 ml/min) > 60 BUN/Creatinine Ratio (7 - 25 %) 20.0 Lactic Acid Cancelled Troponin I (<0.11 ng/ml) < 0.01 Vitamin B12 (239 - 931 pg/mL) 750 Folate (2.76 - 20.0 ng/mL) 16.6 TSH &T3 &Free T4 Intrp (0.27 - 4.20 uIU/mL) 0.428 Hematology CBC w Diff NO MAN DIFF REQ WBC (4.8 - 10.8 /CUMM) 8.8 RBC (4.70 - 6.10 /CUMM) 3.40 L Hgb (14.0 - 18.0 G/DL) 11.4 L Hct (42 - 52 %) 32.5 L MCV (80.0 - 94.0 FL) 95.7 H MCH (27.0 - 31.0 PG) 33.5 H MCHC (33.0 - 37.0 G/DL) 35.0 RDW (11.5 - 14.5 %) 14.1 Plt Count (130 - 400 /CUMM) 235 MPV (7.4 - 10.4 FL) 7.0 L Gran % (42.2 - 75.2 %) 89.0 H Lymphocytes % (20.5 - 51.1 %) 5.7 L Monocytes % (1.7 - 9.3 %) 5.0 Eosinophils % (0 - 5 %) 0.3 Basophils % (0.0 - 2.0 %) 0 Absolute Granulocytes (1.4 - 6.5 /CUMM) 7.8 H Absolute Lymphocytes (1.2 - 3.4 /CUMM) 0.5 L Absolute Monocytes (0.10 - 0.60 /CUMM) 0.4 Absolute Eosinophils (0.0 - 0.7 /CUMM) 0 Absolute Basophils (0.0 - 0.2 /CUMM) 0 Serology Lyme Disease Antibody Pending 03/16 03/16 0056 0049 Chemistry Sodium (137 - 145 mmol/L) 135 L Potassium (3.5 - 5.1 mmol/L) 4.1 Chloride (98 - 107 mmol/L) 99 Carbon Dioxide (22 - 30 mmol/L) 28 Anion Gap (5 - 16) 7 BUN (9 - 20 mg/dL) 18 Creatinine (0.7 - 1.2 mg/dL) 1.0 Estimated GFR (>60 ml/min) > 60 BUN/Creatinine Ratio (7 - 25 %) 18.0 Glucose (65 - 99 mg/dL) 124 H Lactic Acid (0.7 - 2.1 mmol/L) 1.8 Calcium (8.4 - 10.2 mg/dL) 8.9 Total Bilirubin (0.2 - 1.3 mg/dL) 1.0 AST (17 - 59 U/L) 28 ALT (21 - 72 U/L) 40 Alkaline Phosphatase (< 127 U/L) 74 Troponin I (<0.11 ng/ml) < 0.01 Total Protein (6.3 - 8.2 g/dL) 6.0 L Albumin (3.5 - 5.0 g/dL) 3.6 Globulin (1.9 - 4.2 gm/dL) 2.4 Albumin/Globulin Ratio (1.1 - 2.2 %) 1.5 Hematology CBC w Diff MAN DIFF ORDERED WBC (4.8 - 10.8 /CUMM) 12.0 H RBC (4.70 - 6.10 /CUMM) 3.73 L Hgb (14.0 - 18.0 G/DL) 12.3 L Hct (42 - 52 %) 35.9 L MCV (80.0 - 94.0 FL) 96.2 H MCH (27.0 - 31.0 PG) 33.1 H MCHC (33.0 - 37.0 G/DL) 34.4 RDW (11.5 - 14.5 %) 14.1 Plt Count (130 - 400 /CUMM) 253 MPV (7.4 - 10.4 FL) 7.0 L Gran % (42.2 - 75.2 %) 84.1 H Lymphocytes % (20.5 - 51.1 %) 8.3 L Monocytes % (1.7 - 9.3 %) 5.8 Eosinophils % (0 - 5 %) 1.7 Basophils % (0.0 - 2.0 %) 0.1 Absolute Granulocytes (1.4 - 6.5 /CUMM) 10.1 H Segmented Neutrophils (42.2 - 75.2 %) 75 Band Neutrophils (0.0 - 5.0 %) 2 Absolute Lymphocytes (1.2 - 3.4 /CUMM) 1.0 L Lymphocytes (20.5 - 51.1 %) 11 L Monocytes (1.7 - 9.3 %) 9 Absolute Monocytes (0.10 - 0.60 /CUMM) 0.7 H Eosinophils (0 - 5.0 %) 2 Absolute Eosinophils (0.0 - 0.7 /CUMM) 0.2 Absolute Basophils (0.0 - 0.2 /CUMM) 0 Platelet Estimate (ADEQUATE) ADEQUATE Polychromasia 1+ Poikilocytosis 1+ Ovalocytes 1+ Other Body Source Fld Total RBCs Counted (%) 100 Urines Urine Color (YEL,AMB,STR) YEL Urine Clarity (CLEAR) CLEAR Urine pH (5.0 - 8.0) 6.0 Ur Specific [place] (1.001 - 1.035) 1.025 Urine Protein (NEG,<30 MG/DL) NEG Urine Ketones (NEG) NEG Urine Nitrite (NEG) NEG Urine Bilirubin (NEG) NEG Urine Urobilinogen (0.1 - 1.0 EU/dl) 0.2 Ur Leukocyte Esterase (NEG) NEG Ur Microscopic SEDIMENT EXAMINED Urine RBC (0 - 5 /HPF) 5-10 H Urine WBC (0 - 2 /HPF) 1-3 H Ur Epithelial Cells (NONE,FEW) RARE Urine Bacteria (NEG/NONE) RARE H Urine Mucus (FEW,NONE) FEW Urine Hemoglobin (NEG) MOD H Urine Glucose (N MG/DL) NEG Last 24 Hours of [place] Results: Blood cultures x 2 March 16 pending Urine culture March 16 pending Diagnostic Data Recent Imaging Findings: Chest x-ray March 16 negative Assessment/Plan Assessment/Plan Impression: This is a 72-year-old man, status post prostate artery embolism 7 months prior to admission at [facility] for BPH, diagnosed with myasthenia gravis approximately 6 months prior to admission after presenting with bilateral ptosis, treated initially with Prednisone, currently being tapered, and, more recently, with Azathioprine, seen in the emergency room 5 times over the past 4 weeks, initially for congestion, treated with 3 courses of antibiotics with eventual improvement, more recently for abdominal pain and diarrhea, which has also resolved, and diagnosed one day prior to admission with prostatitis, for which he was begun on Doxycycline, admitted early this morning with recurrent fevers and chills, found to be febrile with a mild leukocytosis and begun empirically on Clindamycin. The etiology of his recent fevers and chills is unclear. A urinary source is possible, with mild pyuria on his urinalysis obtained in the ER on the day prior to admission, reported tenderness on exam of his prostate and the questionable right flank tenderness on exam, though he does not report any urinary symptoms. An intra-abdominal process, including C. difficile, is also possible given the multiple courses of antibiotics he has received over the past several weeks and the episode of abdominal pain and diarrhea 10 days prior to admission, but he does not report any recent diarrhea. A tickborne infection, such as Lyme disease, or mosquito borne infection, such as West Nile virus, could also be considered, though he denies any recent exposure to the outdoors. Finally a drug fever, for example secondary to Azathioprine, which was begun approximately 1 week prior to the onset of his recent complaints, could be considered. The rationale for the Clindamycin is unclear but it may be reasonable to cover him for a possible urinary tract infection pending recent cultures. Suggestion: 1. Add a urine culture to the urinalysis obtained in the ER on the day prior to admission (have already requested) 2. Stool for C. difficile if he has diarrhea 3. CT of the abdomen and pelvis with IV contrast 4. Consider Urology input regarding prostatitis 5. Consider discontinuation of the Azathioprine if his cultures remain negative and fevers persist (would need to discuss with his neurologist Dr. Laurent) 6. Follow-up Lyme titer 7. Discontinue Clindamycin 8. Begin Bactrim DS 1 p.o. every 12 hours pending recent cultures Consult Acknowledgment - Thank you for your consult request.
--- NOTE | 2018-03-16 20:36 | CT SCAN REPORT ---
EXAMINATION: CT ABDOMEN AND PELVIS WITH CONTRAST CLINICAL INFORMATION: Abdominal pain COMPARISON: CT abdomen pelvis 12/12/2016 TECHNIQUE: Multidetector volumetric imaging was performed of the abdomen and pelvis following IV administration of 95 mL of Optiray 320 intravenous contrast. Sagittal and coronal reformatted images were obtained on the technologist's workstation. DLP: 800 mGy-cm FINDINGS: Visualized lung bases demonstrate stable chronic interstitial lung disease. Coronary artery calcifications are incompletely visualized. The liver is normal in size but demonstrates diffusely decreased attenuation. A few subcentimeter hepatic hypodensities are too small to accurately characterize but appear stable. The gallbladder is decompressed and therefore not accurately evaluated. Fatty atrophy of the pancreas. The spleen is normal in appearance. Anterior splenule again identified. Unremarkable adrenal glands. The kidneys demonstrate symmetric nephrograms. There is no hydronephrosis of either kidney. Normal caliber loops of small and large bowel. Mild to moderate stool burden is present throughout the colon. Normal appendix. Unchanged appearance of small fat-containing umbilical hernia. Abdominal aorta is normal in caliber and demonstrates mild atherosclerotic disease. The bladder is decompressed and therefore not accurately evaluated. Small fat-containing inguinal hernias bilaterally. The prostate gland is mildly enlarged measuring 5.2 cm in transverse dimension. No gross free pelvic fluid. Mild diffuse degenerative changes of the spine. IMPRESSION: 1. Diffusely decreased liver attenuation. Findings are nonspecific but most suggestive of hepatic steatosis. Correlation with lab values recommended. 2. Stable subcentimeter hepatic hypodensities which remain too small to accurately characterize. 3. Mild to moderate stool burden present throughout the colon. 4. Small fat-containing inguinal hernias bilaterally. 5. Mild enlargement of the prostate gland.
[2018-03-16 23:52] VITALS: BP 144/76
--- NOTE | 2018-03-17 07:36 | PN- Housestaff ---
Subjective Follow-up For: Fevers Prostatitis Leukocytosis Subjective: Seen and examined at bedside. He was afebrile overnight however early in the morning was a reported MAXIMUM TEMPERATURE of 101.2, this is after initiation of Bactrim. He does deny any dysuria, however he still reporting isolated right flank pain. Review of Systems Constitutional: Reports: see HPI. Objective Last 24 Hrs of Vital Signs/I&O Vital Signs Date Time Temp Pulse Resp B/P B/P Pulse O2 O2 Flow FiO2 Mean Ox Delivery Rate 03/17 0845 101.2 03/17 0840 101.2 03/17 0602 98.2 70 18 142/73 99 Room Air 03/16 2352 98.7 82 18 144/76 99 Room Air 03/16 2301 98.7 82 18 144/76 99 Room Air 03/16 2121 78 18 175/81 99 Room Air 03/16 1510 98.0 70 20 138/70 98 Room Air 03/16 1151 97.5 66 20 142/68 98 Room Air Intake & Output 03/17 1600 03/17 0800 03/17 0000 Intake Total 240 Output Total Balance 240 Intake, Oral 240 Physical Exam General Appearance: Alert, Oriented X3, Cooperative Other Physical Findings: Neck Supple, No JVD, No thryomegaly, +2 Carotid Pulse wo Bruit, No LAD Lymphatic Cervical nl Cardiovascular Regular Rate, Normal S1, Normal S2, No Murmurs Lungs Clear to Auscultation, Normal Air Movement Abdomen Normal Bowel Sounds, Soft, No Tenderness, No Masses Neurological Normal Gait, Normal Speech, Strength at 5/5 X4 Ext, Normal Tone, Sensation Intact, Cranial Nerves 3-12 NL Extremities No Clubbing, No Cyanosis, No Edema, Normal Pulses, No Tenderness/ Swelling Vascular Normal Pulses, Pulses Symmetrical Current Medications: Current Medications Sig/Enriqueta Start time Last Medication Dose Route Stop Time Status Admin Acetaminophen 0 .STK-MED ONE 03/17 0842 DC PO Acetaminophen 1,000 MG Q6P PRN 03/16 0345 AC N/A 1 UNIT IV Acetaminophen 650 MG Q6P PRN 03/16 0230 AC 03/17 PO 0845 Atorvastatin Calcium 20 MG 1700 03/16 1700 AC 03/16 PO 1804 Azathioprine 50 MG BID 03/16 0900 AC 03/17 PO 0844 Clindamycin 600 MG IQ8 03/16 0800 DC 03/16 Dextrose/Water 50 ML IV 1756 Cyanocobalamin 1,000 MCG DAILY 03/16 0900 AC 03/16 PO 0850 Escitalopram Oxalate 10 MG DAILY 03/16 09 AC 03/17 PO 0844 Famotidine 40 MG DAILY 03/16 0900 AC 03/17 PO 0844 Heparin Sodium 5,000 UNIT Q8 03/16 0600 AC 03/17 (Porcine) SC 0600 Levothyroxine Sodium 0.175 MG DAILY AC 03/16 0700 AC 03/17 PO 0600 Multivitamins 1 TAB DAILY 03/16 0900 AC 03/17 PO 0844 Omeprazole 20 MG DAILY AC 03/16 0700 AC 03/17 PO 0600 Ondansetron HCl 4 MG ONCE ONE 03/16 2215 DC 03/16 IV 03/16 2216 2216 Ondansetron HCl 0 .STK-MED ONE 03/16 2212 DC .ROUTE Prednisone 30 MG DAILY 03/16 09 AC 03/17 PO 0844 Sodium Chloride 1,000 ML .Q10H 03/16 0230 DC 03/16 IV 03/16 1229 0600 Trimethoprim/ 0 .STK-MED ONE 03/16 2119 DC Sulfamethoxazole PO Trimethoprim/ 1 TAB BID 03/16 2100 AC 03/17 Sulfamethoxazole PO 0844 Last 24 Hrs of Lab/[place] Results Last 24 Hrs of Labs/Mics: Microbiology 03/16 1913 STOOL: Clostridium difficile Toxin A & B - COLB 03/16 1618 URINE ROUT: Urine Culture - COLB Assessment/Plan Assessment: 72-year-old gentleman with past medical history significant for BPH status post prostate 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 He was seen 1 day prior and was given doxycycline for questionable UTI and prostatitis. Physical examination was noted to be positive for tender prostate. During presentation he did have fever with leukocytosis. He was seen by the ID team and his antibiotic was switched from clindamycin to Bactrim. CT abdomen pelvis was unremarkable for any acute infectious pathology. Given his extensive history of outdoor activities and heme reporting previous tick bites, there was suspicion of Lyme being a possible cause of his fevers. Impression * Persistent fevers. This is despite being on prednisone and aziothoprine. His UA is not very convincing for UTI, however ED records reports prominent tenderness of his prostate on physical examination. Possible that his fevers are secondary to prostatitis. Lyme titer is pending. CT abdomen pelvis, CXR unremarkable. * Prostatitis in a patient with significant history of BPH with recent instrumentation and a physical finding of tender prostate on palpation. Assessment and plan Patient continues to have fevers with a reported MAXIMUM TEMPERATURE of 101.2 today. He was switched to Bactrim yesterday for empiric treatment of prostatitis. His urine culture is pending so is his blood cultures. Given his social history of outdoor activities, Lyme is being entertained as a possible causeof the fevers, we are awaiting for the Lyme titers. Given that the patient has been recently started on different medication including azithioprine , there is a possibility that the patient might have drug fevers. If indeed, all possible infectious causes have been exhausted and ruled out, we will then have to address the issue of azithioprine being the culprit. Will then have to notify patient's neurologist on other possible option for his myasthenia gravis. For now, we will continue to follow ID recommendation. Urology consult has also been placed, personally spoke to Dr Loja after he reviewed the case, reccomendation for now is to continue the bactrim and start ibuprofen 400 mg bid. Problem List: 1. Prostatitis 2. Fever Pain Ratin Pain Location: right flank Pain Goal: Pain 4 or less Pain Plan: per pathway Tomorrow's Labs & Rationales: cbc-infectious bep
--- NOTE | 2018-03-17 11:08 | PN- Att Addend ---
Attending Addendum Attending Brief Note Patient seen and examined, he had fever again this morning. He denies any aches or pains except mild back pain. Vital Signs Date Time Temp Pulse Resp B/P B/P Pulse O2 O2 Flow FiO2 Mean Ox Delivery Rate 03/17 0845 101.2 03/17 0840 101.2 03/17 0602 98.2 70 18 142/73 99 Room Air 03/16 2352 98.7 82 18 144/76 99 Room Air 03/16 2301 98.7 82 18 144/76 99 Room Air 03/16 2121 78 18 175/81 99 Room Air 03/16 1510 98.0 70 20 138/70 98 Room Air 03/16 1151 97.5 66 20 142/68 98 Room Air on exam; aox3, nad. cv; s1, s2, rrr resp; clear abd; soft, nt, bs+ ext; no edema no labs today. A/P; 72 y/o M with pmh sig for HLD, BPH, prostate artery embolism, depression, and myasthenia gravis which was recently diagnosed currently on azthioprine and prednisone therapy, multiple ED visits with multiple complaints including dry cough wheezing, abdominal pain diarrhea and then finally visited one day prior to admission and was diagnosed with UTI and possible prostatitis and was discharged on doxycycline. Presented again a day later with consistent symptoms of fever and generalized weakness. Patient is admitted with fever with a question of UTI and prstatitis. Appreciate infectious disease input. Patient was switched to Bactrim. He started to spike fever again this morning. Cultures so far are pending. Lyme antibodies also pending. Will follow up on all the cultures. As noted in infectious disease note, if all the cultures remain negative with persistent fevers and infectious causes are ruled out then we have to consider the cause of his fever as possibly a drug fever related to azthioprine. Azthioprine can certainly cause malaise, n/v and diarrhea. We will then have to talk to his neurologist about patient's azthioprine. Currently he is on a prednisone taper and azathioprine was added by his neurologist Dr. Sainz about a month ago. Continue other current medications. Patient on heparin subcu for DVT prophylaxis.
[2018-03-17 14:08] VITALS: BP 121/72
--- NOTE | 2018-03-17 14:46 | PN- Infect Dx ---
Subjective Subjective: T-max 101.2 on steroids. He has had no further diarrhea and reports a formed bowel movement. He reports no dysuria or urgency but did have nocturia 5 overnight. Objective Last 24 Hrs of Vital Signs/I&O Vital Signs Date Time Temp Pulse Resp B/P B/P Pulse O2 O2 Flow FiO2 Mean Ox Delivery Rate 03/17 1408 98.9 73 18 121/72 97 Room Air 03/17 0845 101.2 03/17 0840 101.2 03/17 0602 98.2 70 18 142/73 99 Room Air 03/16 2352 98.7 82 18 144/76 99 Room Air 03/16 2301 98.7 82 18 144/76 99 Room Air 03/16 2121 78 18 175/81 99 Room Air 03/16 1510 98.0 70 20 138/70 98 Room Air Intake & Output 03/17 1600 03/17 0800 03/17 0000 Intake Total 240 Output Total Balance 240 Intake, Oral 240 Physical Exam Other Physical Findings: He appears comfortable in no acute distress Skin warm with no rash Lungs are clear Heart regular rhythm with no murmur Abdomen is obese, soft, nontender with positive bowel sounds Back no CVA tenderness Extremities no cyanosis, clubbing or edema Results Last 24 Hours of Lab Results: No labs from today Last 24 Hours of [place] Results: Urine culture March 15 negative Urine culture March 16 negative Blood cultures 2 March 16 negative Recent Imaging Studies: CT of the abdomen and pelvis March 16 negative for any acute process Assessment/Plan ID Impression: Recurrent fevers of unclear etiology, now on Bactrim empirically for possible prostatitis, with his prostate reportedly tender on rectal exam in the emergency room on the day prior to admission and with his urinalysis revealing mild pyuria , though his culture is so far negative. His CT scan did not reveal any other focus of infection and his blood cultures remain negative. A tickborne (e.g. Lyme) or mosquito borne (e.g. West Nile) infection is possible, though he does not report any significant exposure recently. Drug fever, for example the Azathioprine, is also a possibility, particularly as his recent complaints have all begun after the initiation of this medication. Suggestion: 1. Urology evaluation regarding possible prostatitis 2. Follow-up recent cultures 3. Follow-up Lyme titer 4. Consider discontinuation of the Azathioprine if his fevers persist 5. Continue Bactrim pending above Macey Saucedo MD will be covering until March 30
[2018-03-17 18:11] VITALS: BP 138/74
[2018-03-17 21:34] VITALS: BP 129/74
[2018-03-18 06:40] VITALS: BP 140/78
--- NOTE | 2018-03-18 06:43 | PN- Housestaff ---
Devin OLMEDO,Omer 03/18/18 0642: Subjective Follow-up For: Fevers Prostatitis Subjective: Pt is seen and examined while seated comfortably on a recliner. 24 hr review if records indicate a Tmax of 102.3 last night, earlier in the morning he spiked a temp of 101.2. He does not endorse any urinary symptoms. Review of Systems Constitutional: Reports: see HPI. Objective Last 24 Hrs of Vital Signs/I&O Vital Signs Date Time Temp Pulse Resp B/P B/P Pulse O2 O2 Flow FiO2 Mean Ox Delivery Rate 03/18 0802 99.0 03/18 0730 101.2 03/18 0645 101.2 03/18 0640 98.4 80 18 140/78 97 03/18 0632 102.3 03/18 0630 102.3 03/17 2134 97.6 64 18 129/74 97 Room Air 03/17 1811 97.4 75 18 138/74 97 Room Air 03/17 1408 98.9 73 18 121/72 97 Room Air 03/17 0845 101.2 03/17 0840 101.2 Intake & Output 03/18 1600 03/18 0800 03/18 0000 Intake Total 250 510 Output Total Balance 250 510 Intake, IV 10 10 Intake, Oral 240 500 Number 0 Bowel Movements Physical Exam General Appearance: Alert, Oriented X3, Cooperative Other Physical Findings: Neck Supple, No JVD, No thryomegaly, +2 Carotid Pulse wo Bruit, No LAD Lymphatic Cervical nl Cardiovascular Regular Rate, Normal S1, Normal S2, No Murmurs Lungs Clear to Auscultation, Normal Air Movement Abdomen Normal Bowel Sounds, Soft, No Tenderness, No Masses Neurological Normal Gait, Normal Speech, Strength at 5/5 X4 Ext, Normal Tone, Sensation Intact, Cranial Nerves 3-12 NL Extremities No Clubbing, No Cyanosis, No Edema, Normal Pulses, No Tenderness/ Swelling Vascular Normal Pulses, Pulses Symmetrical Current Medications: Current Medications Sig/Enriqueta Start time Last Medication Dose Route Stop Time Status Admin Acetaminophen 0 .STK-MED ONE 03/18 0631 DC IV Acetaminophen 0 .STK-MED ONE 03/17 0842 DC PO Acetaminophen 1,000 MG Q6P PRN 03/16 0345 AC 03/18 N/A 1 UNIT IV 0632 Acetaminophen 650 MG Q6P PRN 03/16 0230 AC 03/17 PO 0845 Atorvastatin Calcium 20 MG 1700 03/16 1700 AC 03/17 PO 1957 Azathioprine 50 MG BID 03/16 09 AC 03/17 PO 9 Cyanocobalamin 1,000 MCG DAILY 03/16 0900 AC 03/16 PO 0850 Escitalopram Oxalate 10 MG DAILY 03/16 0900 AC 03/17 PO 0844 Famotidine 40 MG DAILY 03/16 09 AC 03/17 PO 0844 Heparin Sodium 0 .STK-MED ONE 03/17 1446 DC (Porcine) .ROUTE Heparin Sodium 5,000 UNIT Q8 03/16 06 AC 03/18 (Porcine) SC 0634 Ibuprofen 0 .STK-MED ONE 03/17 1446 DC PO Ibuprofen 400 MG BID 03/17 1404 AC 03/17 PO 1957 Levothyroxine Sodium 0.175 MG DAILY AC 03/16 07 AC 03/18 PO 0634 Multivitamins 1 TAB DAILY 03/16 09 AC 03/17 PO 0844 Omeprazole 20 MG DAILY AC 03/16 07 AC 03/18 PO 0634 Prednisone 30 MG DAILY 03/16 09 AC 03/17 PO 0844 Trimethoprim/ 1 TAB BID 03/16 2100 AC 03/17 Sulfamethoxazole PO 1957 Assessment/Plan Assessment: 72-year-old gentleman with past medical history significant for BPH status post prostate 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 He was seen 1 day prior and was given doxycycline for questionable UTI and prostatitis. Physical examination was noted to be positive for tender prostate. During presentation he did have fever with leukocytosis. He was seen by the ID team and his antibiotic was switched from clindamycin to Bactrim. CT abdomen pelvis was unremarkable for any acute infectious pathology. Given his extensive history of outdoor activities and heme reporting previous tick bites, there was suspicion of Lyme being a possible cause of his fevers. Impression * Persistent fevers. This is despite being on prednisone and aziothoprine. His UA is not very convincing for UTI, however ED records reports prominent tenderness of his prostate on physical examination. Possible that his fevers are secondary to prostatitis. Lyme titer is pending. CT abdomen pelvis, CXR unremarkable. * Prostatitis in a patient with significant history of BPH with recent instrumentation and a physical finding of tender prostate on palpation. Assesment and Plan Mr Sandoval still continues to have persitent fevers with a Tmax of 102.3 despite being on Bactrim for presumed prostatitis. His WBC is noticeably increased to 13.6 compared to yesterday 8.8. Leukocytosis from stress demargination due to prednisone use can always be a possiblity. However in the context of persistent fevers, infectious vs drug fevers is more likely the possible scenarios. Prostatitis is our current working diagnosis. Regarding, infectious etiology, his BC x2 have remained negative, so is his urine culture, CXR and CT Abd/pelvis. At this point it may be reasonable to consider the Azathioprine as the culprit for his fever especially in the context of patient account that his symptoms coincide with the increased dosefrom 50 to 100 mg. Spoke to [facility] neurology (Dr Landa) and they agreed with the plan to stop the azathiopurine and maintain patient on Prednisone 30mg for his MG with instruction to f/u with neuro clinic after discharge. Problem List: 1. Prostatitis 2. Fever Pain Ratin Pain Location: none Pain Goal: Remain pain free Pain Plan: per pathway Tomorrow's Labs & Rationales: francis Bui MD,Nataly 03/18/18 1047: Attending MD Review Statement Attending Statement Attending MD Statement: examined this patient, discuss w/resident/PA/DIGITAL DIRECTOR, agreed w/resident/PA/DIGITAL DIRECTOR, reviewed EMR data (avail), discussed with nursing, discussed with case mgmt, reviewed images, amended to note Attending Assessment/Plan: Patient seen and examined, did have a high-grade fever spike earlier in the morning. Currently he is afebrile. He denies any nausea vomiting or diarrhea. Patient has been kept on Bactrim for possible prostatitis. There is also a bump in his white count today. Vital Signs Date Time Temp Pulse Resp B/P B/P Pulse O2 O2 Flow FiO2 Mean Ox Delivery Rate 03/18 0802 99.0 03/18 0730 101.2 03/18 0645 101.2 03/18 0640 98.4 80 18 140/78 97 08/30 0632 102.3 03/18 0630 102.3 03/17 2134 97.6 64 18 129/74 97 Room Air 03/17 1811 97.4 75 18 138/74 97 Room Air 03/17 1408 98.9 73 18 121/72 97 Room Air on exam; aox3, nad. cv; s1,s2, rrr resp; clear abd; soft, nt, bs+ ext; trace edema with skin tears. Laboratory Tests 03/18 0807 Chemistry Sodium (137 - 145 mmol/L) 135 L Potassium (3.5 - 5.1 mmol/L) 4.0 Chloride (98 - 107 mmol/L) 103 Carbon Dioxide (22 - 30 mmol/L) 24 Anion Gap (5 - 16) 8 BUN (9 - 20 mg/dL) 18 Creatinine (0.7 - 1.2 mg/dL) 1.1 Estimated GFR (>60 ml/min) > 60 BUN/Creatinine Ratio (7 - 25 %) 16.4 Hematology CBC w Diff NO MAN DIFF REQ WBC (4.8 - 10.8 /CUMM) 13.6 H RBC (4.70 - 6.10 /CUMM) 3.76 L Hgb (14.0 - 18.0 G/DL) 12.5 L Hct (42 - 52 %) 36.1 L MCV (80.0 - 94.0 FL) 96.1 H MCH (27.0 - 31.0 PG) 33.4 H MCHC (33.0 - 37.0 G/DL) 34.7 RDW (11.5 - 14.5 %) 14.2 Plt Count (130 - 400 /CUMM) 230 MPV (7.4 - 10.4 FL) 7.5 Gran % (42.2 - 75.2 %) 83.7 H Lymphocytes % (20.5 - 51.1 %) 7.5 L Monocytes % (1.7 - 9.3 %) 7.0 Eosinophils % (0 - 5 %) 1.7 Basophils % (0.0 - 2.0 %) 0.1 Absolute Granulocytes (1.4 - 6.5 /CUMM) 11.3 H Absolute Lymphocytes (1.2 - 3.4 /CUMM) 1.0 L Absolute Monocytes (0.10 - 0.60 /CUMM) 0.9 H Absolute Eosinophils (0.0 - 0.7 /CUMM) 0.2 Absolute Basophils (0.0 - 0.2 /CUMM) 0 A/P; 72 y/o M with pmh sig for HLD, BPH, prostate artery embolism, depression, and myasthenia gravis which was recently diagnosed currently on azthioprine and prednisone therapy, multiple ED visits with multiple complaints including dry cough wheezing, abdominal pain diarrhea and then finally visited one day prior to admission and was diagnosed with UTI and possible prostatitis and was discharged on doxycycline. Presented again a day later with consistent symptoms of fever and generalized weakness. Patient is admitted with fever with a question of UTI and prstatitis. There is also possibility that these fever spikes and the symptoms are related to patient's Azathioprine. Currently he is taking 50 mg twice daily dosing and claims that at a lower dose he did not have these symptoms. There is a bump in his white count today. Patient has been continued on Bactrim for possible prostatitis. We have requested a urology consult and awaiting urologist evaluation. Ibuprofen was also added for anti inflmmatory effect as recommended by urologist over the phone. We will call patient's neurologist to discuss possibility of fevers and other sx related to Azathioprine. We will discuss the possibility of decreasing the dose of azathioprine and question increasing the dose of prednisone at this time. In the meantime we will continue to monitor fever spikes, continue to follow up on culture results. DVT px; Hep sq. Encouraged ambulation.
[2018-03-18 09:14] LABS: ABSOLUTE BASOPHIL COUNT 0 /CUMM (0.0-0.2); ABSOLUTE EOSINOPHIL COUNT 0.2 /CUMM (0.0-0.7); ABSOLUTE GRANULOCYTE CT 11.3 /CUMM (1.4-6.5); ABSOLUTE MONOCYTE COUNT 0.9 /CUMM (0.10-0.60); BASOPHIL % 0.1 % (0.0-2.0); EOSINOPHIL % 1.7 % (0-5); HEMATOCRIT 36.1 % (42-52); MEAN CORPUSCULAR HGB 33.4 PG (27.0-31.0); MEAN CORPUSCULAR HGB CONC 34.7 G/DL (33.0-37.0); MEAN CORPUSCULAR VOLUME 96.1 FL (80.0-94.0); MEAN PLATELET VOLUME 7.5 FL (7.4-10.4); PLATELET COUNT 230 /CUMM (130-400); RBC DISTRIBUTION WIDTH 14.2 % (11.5-14.5); RED BLOOD CELL CT 3.76 /CUMM (4.70-6.10)
[2018-03-18 09:32] LABS: WHITE BLOOD CELL COUNT 13.6 /CUMM (4.8-10.8)
[2018-03-18 10:00] LABS: GRANULOCYTE % 83.7 % (42.2-75.2)
[2018-03-18 14:40] VITALS: BP 119/67
--- NOTE | 2018-03-18 17:24 | PN- Infect Dx ---
Subjective Subjective: Persistent fever in the morning. No burning when voiding. No productive cough. Appears comfortable. Review of Systems Comments: 12 points reviewed as noted, otherwise negative. Objective Last 24 Hrs of Vital Signs/I&O Vital Signs Date Time Temp Pulse Resp B/P B/P Pulse O2 O2 Flow FiO2 Mean Ox Delivery Rate 03/18 1440 98.4 78 18 119/67 97 Room Air 03/18 0802 99.0 03/18 0800 96 Room Air 03/18 0730 101.2 03/18 0645 101.2 03/18 0640 98.4 80 18 140/78 97 03/18 0632 102.3 03/18 0630 102.3 03/17 2134 97.6 64 18 129/74 97 Room Air 03/17 1811 97.4 75 18 138/74 97 Room Air Intake & Output 03/18 1600 03/18 0800 03/18 0000 Intake Total 1000 250 510 Output Total Balance 1000 250 510 Intake, IV 10 10 Intake, Oral 1000 240 500 Number 0 Bowel Movements Physical Exam Other Physical Findings: He appears comfortable in no acute distress Skin warm with no rash Lungs are clear Heart regular rhythm with no murmur Abdomen is obese, soft, nontender with positive bowel sounds Back no CVA tenderness Extremities no cyanosis, clubbing or edema Results Last 24 Hours of Lab Results: Laboratory Tests 03/18 08 Chemistry Sodium (137 - 145 mmol/L) 135 L Potassium (3.5 - 5.1 mmol/L) 4.0 Chloride (98 - 107 mmol/L) 103 Carbon Dioxide (22 - 30 mmol/L) 24 Anion Gap (5 - 16) 8 BUN (9 - 20 mg/dL) 18 Creatinine (0.7 - 1.2 mg/dL) 1.1 Estimated GFR (>60 ml/min) > 60 BUN/Creatinine Ratio (7 - 25 %) 16.4 Hematology CBC w Diff NO MAN DIFF REQ WBC (4.8 - 10.8 /CUMM) 13.6 H RBC (4.70 - 6.10 /CUMM) 3.76 L Hgb (14.0 - 18.0 G/DL) 12.5 L Hct (42 - 52 %) 36.1 L MCV (80.0 - 94.0 FL) 96.1 H MCH (27.0 - 31.0 PG) 33.4 H MCHC (33.0 - 37.0 G/DL) 34.7 RDW (11.5 - 14.5 %) 14.2 Plt Count (130 - 400 /CUMM) 230 MPV (7.4 - 10.4 FL) 7.5 Gran % (42.2 - 75.2 %) 83.7 H Lymphocytes % (20.5 - 51.1 %) 7.5 L Monocytes % (1.7 - 9.3 %) 7.0 Eosinophils % (0 - 5 %) 1.7 Basophils % (0.0 - 2.0 %) 0.1 Absolute Granulocytes (1.4 - 6.5 /CUMM) 11.3 H Absolute Lymphocytes (1.2 - 3.4 /CUMM) 1.0 L Absolute Monocytes (0.10 - 0.60 /CUMM) 0.9 H Absolute Eosinophils (0.0 - 0.7 /CUMM) 0.2 Absolute Basophils (0.0 - 0.2 /CUMM) 0 Last 24 Hours of [place] Results: Patient : YVON RICE Acct: [id number] DR: Nataly Bui MD Birthdate: [birth year] Age/Sex: 72/M Unit: [id number] Loc: 2NB 214- [phone] Status : ADM IN SPEC #: [id number] MARILEE: 03/16/18 STATUS: COMP RECD: 03/16/[address]: Kassie OLMEDO,Shivam Gamboa SOURCE: URINE ROUT ENTR: 03/16/[address]: Kathleen Rodrigues MD SPDESC: URIN CLEAN ORDERED: URINE CULTURE COMMENT: TRIO Procedure Result > URINE CULTURE Final 03/18/18 NO GROWTH AFTER 2 DAYS Recent Imaging Studies: CT A/P 03/16 IMPRESSION: 1. Diffusely decreased liver attenuation. Findings are nonspecific but most suggestive of hepatic steatosis. Correlation with lab values recommended. 2. Stable subcentimeter hepatic hypodensities which remain too small to accurately characterize. 3. Mild to moderate stool burden present throughout the colon. 4. Small fat-containing inguinal hernias bilaterally. 5. Mild enlargement of the prostate gland. DICTATED BY: Jaskaran Rain MD DATE/TIME DICTATED:03/16/182020 PROTOZOOLOGIST:LUIS DATE/TIME TRANSCRIBED:03/16/182020 CONFIDENTIAL, DO NOT COPY WITHOUT APPROPRIATE AUTHORIZATION. <Electronically signed in Other Vendor System> SIGNED BY: Koffi OLMEDOJaskaran 03/16/182035 Assessment/Plan ID Impression: 72-year-old man, status post prostate artery embolism 7 months prior to admission at [facility] for BPH, diagnosed with myasthenia gravis approximately 6 months prior to admission after presenting with bilateral ptosis, treated initially with Prednisone, currently being tapered, and, more recently, with Azathioprine, seen in the emergency room 5 times over the past 4 weeks, initially for congestion, treated with 3 courses of antibiotics with eventual improvement, more recently for abdominal pain and diarrhea, which has also resolved, and diagnosed one day prior to admission with prostatitis, for which he was begun on Doxycycline, admitted 03/16 with recurrent fevers and chills, found to be febrile with a mild leukocytosis and begun empirically on Clindamycin. A urinary source is possible, with mild pyuria on his urinalysis obtained in the ER on the day prior to admission, reported tenderness on exam of his prostate and the questionable right flank tenderness on exam, though he does not report any urinary symptoms. An intra-abdominal process, including C. difficile, is also possible given the multiple courses of antibiotics he has received over the past several weeks and the episode of abdominal pain and diarrhea 10 days prior to admission, but he does not report any recent diarrhea. A tickborne infection, such as Lyme disease, or mosquito borne infection, such as West Nile virus, could also be considered, though he denies any recent exposure to the outdoors. . Suggestion: 1. F/U CBC w/ diff, ESR, CRP in am. 3. Of note Lyme titer is negative. 4. Observe fever curve off Azathioprine 5. Continue Bactrim D #3. Monitor BMP. If spiking fever again consider empiric iv abx (Zosyn);
[2018-03-18 21:20] VITALS: BP 140/74
[2018-03-19 05:52] VITALS: BP 94/52
--- NOTE | 2018-03-19 07:33 | PN- Housestaff ---
Devin OLMEDO,[facility] 03/19/18 0733: Subjective Follow-up For: Prostatitis Fevers Subjective: Seen and examined while seated comfortably on on the recliner, he reports feeling better compared to previous days and is happy to report that he no longer feels chills. No overnight report of elevated temperatures. This is after stopping the azathioprine which he has not taken it for the past 24 hours. Review of Systems Constitutional: Reports: see HPI. Objective Last 24 Hrs of Vital Signs/I&O Vital Signs Date Time Temp Pulse Resp B/P B/P Pulse O2 O2 Flow FiO2 Mean Ox Delivery Rate 03/19 0552 98.0 54 20 94/52 96 03/18 2120 97.8 63 20 140/74 96 Room Air 03/18 1440 98.4 78 18 119/67 97 Room Air 03/18 0802 99.0 03/18 0800 96 Room Air Intake & Output 03/19 0800 03/19 0000 03/18 1600 Intake Total 379 325 1018 Output Total Balance 118 956 2975 Intake, IV 10 10 Intake, Oral 084 720 0285 Number 0 0 Bowel Movements Physical Exam General Appearance: Alert, Oriented X3, Cooperative Other Physical Findings: Neck Supple, No JVD, No thryomegaly, +2 Carotid Pulse wo Bruit, No LAD Lymphatic Cervical nl Cardiovascular Regular Rate, Normal S1, Normal S2, No Murmurs Lungs Clear to Auscultation, Normal Air Movement Abdomen Normal Bowel Sounds, Soft, No Tenderness, No Masses Neurological Normal Gait, Normal Speech, Strength at 5/5 X4 Ext, Normal Tone, Sensation Intact, Cranial Nerves 3-12 NL Extremities No Clubbing, No Cyanosis, No Edema, Normal Pulses, No Tenderness/ Swelling Vascular Normal Pulses, Pulses Symmetrical Assessment/Plan Assessment: 72-year-old gentleman with past medical history significant for BPH status post prostate 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 He was seen 1 day prior and was given doxycycline for questionable UTI and prostatitis. Physical examination was noted to be positive for tender prostate. During presentation he did have fever with leukocytosis. He was seen by the ID team and his antibiotic was switched from clindamycin to Bactrim. CT abdomen pelvis was unremarkable for any acute infectious pathology. Given his extensive history of outdoor activities and heme reporting previous tick bites, there was suspicion of Lyme being a possible cause of his fevers. Impression * Persistent fevers. This is despite being on prednisone and aziothoprine. His UA is not very convincing for UTI, however ED records reports prominent tenderness of his prostate on physical examination. Possible that his fevers are secondary to prostatitis. Lyme titer is pending. CT abdomen pelvis, CXR unremarkable. * Prostatitis in a patient with significant history of BPH with recent instrumentation and a physical finding of tender prostate on palpation. Plan Patient has remained afebrile for the past 24 hours, subjectively he feels well. This is after stopping his azathioprine with the last dose taken on 03/17. It is looking more likely that his fevers were probably secondary to the medication. Per our conversation with neurology clinic at [place], the plan is to keep the patient off azathiopurine and continue the prednisone 30 mg with instructions to follow-up with the neurology clinic. Regarding his prostatitis will still continue Bactrim for 2 week course and patient will follow-up with urology. If patient remains afebrile after lunch, will discharge patient today. Problem List: 1. Prostatitis 2. Fever Pain Ratin Pain Location: none Pain Goal: Remain pain free Pain Plan: per pathway Tomorrow's Labs & Rationales: none-discharge Hao OLMEDO,Nataly 03/19/18 1001: Attending MD Review Statement Attending Statement Attending MD Statement: examined this patient, discuss w/resident/PA/CANDY MAKER HELPER, agreed w/resident/PA/CANDY MAKER HELPER, reviewed EMR data (avail), discussed with nursing, discussed with case mgmt, reviewed images, amended to note Attending Assessment/Plan: Patient seen and examined, overall doing better. Remained afebrile overnight. As of heparin was discontinued yesterday. Dr. Omer Beltran had spoken to patient's covering Neurologist and per their recommendation, azathioprine was stopped. The also recommended to continue the patient on 30 mg of prednisone. Patient is overall feeling better after the medication was stopped. He denies feeling any shaking. He is afebrile now. His white count is also normal. His Lyme antibody came out negative and so far his cultures remained negative. He is on treatment with Bactrim for possible prostatitis. If he remains afebrile by this afternoon then he can be likely discharged home. He will be discharged to complete a total of 2 week course of Bactrim. He will follow-up with urologist as an outpatient. He will also follow-up with his neurologist/neuro- dietitian therapeutic as an outpatient as well as his primary care doctor. The rest of his medications will be continued.
[2018-03-19 07:55] VITALS: BP 118/62
[2018-03-19 08:16] LABS: ABSOLUTE BASOPHIL COUNT 0 /CUMM (0.0-0.2); ABSOLUTE EOSINOPHIL COUNT 0.2 /CUMM (0.0-0.7); ABSOLUTE GRANULOCYTE CT 7.5 /CUMM (1.4-6.5); ABSOLUTE LYMPH COUNT 1.7 /CUMM (1.2-3.4); ABSOLUTE MONOCYTE COUNT 0.8 /CUMM (0.10-0.60); BASOPHIL % 0.2 % (0.0-2.0); EOSINOPHIL % 1.9 % (0-5); GRANULOCYTE % 72.9 % (42.2-75.2); MEAN CORPUSCULAR HGB 33.1 PG (27.0-31.0); MEAN CORPUSCULAR HGB CONC 34.7 G/DL (33.0-37.0); MEAN CORPUSCULAR VOLUME 95.3 FL (80.0-94.0); MEAN PLATELET VOLUME 7.8 FL (7.4-10.4); PLATELET COUNT 249 /CUMM (130-400); RBC DISTRIBUTION WIDTH 14.2 % (11.5-14.5); RED BLOOD CELL CT 3.22 /CUMM (4.70-6.10); WHITE BLOOD CELL COUNT 10.2 /CUMM (4.8-10.8)
[2018-03-19 08:33] LABS: HEMATOCRIT 30.7 % (42-52)
[2018-03-19] MEDS ORDERED: IBUPROFEN400 M1 PO (10:17)
[2018-03-19] MEDS ORDERED: SULFAMETHOXAZO1 EAC1 PO (10:17)
--- NOTE | 2018-03-19 12:28 | PN- Infect Dx ---
Subjective Subjective: No fever this am; c/o constipation. No urinary sx. Review of Systems Comments: 12 points reviewed as noted, otherwise negative. Objective Last 24 Hrs of Vital Signs/I&O Vital Signs Date Time Temp Pulse Resp B/P B/P Pulse O2 O2 Flow FiO2 Mean Ox Delivery Rate 03/19 1158 98.8 03/19 0755 118/62 03/19 0552 98.0 54 20 94/52 96 03/18 2120 97.8 63 20 140/74 96 Room Air 03/18 1440 98.4 78 18 119/67 97 Room Air Intake & Output 03/19 1600 03/19 0800 03/19 0000 Intake Total 490 850 Output Total Balance 490 850 Intake, IV 10 10 Intake, Oral 480 840 Number 0 0 Bowel Movements Physical Exam Other Physical Findings: He appears comfortable in no acute distress Skin warm with no rash Lungs are clear Heart regular rhythm with no murmur/rub or gallop Abdomen is protuberant, soft, nontender with positive bowel sounds Back no CVA tenderness Extremities no cyanosis, clubbing or edema Results Last 24 Hours of Lab Results: Laboratory Tests 03/19 0639 Chemistry Sodium (137 - 145 mmol/L) 134 L Potassium (3.5 - 5.1 mmol/L) 4.3 Chloride (98 - 107 mmol/L) 103 Carbon Dioxide (22 - 30 mmol/L) 28 Anion Gap (5 - 16) 4 L BUN (9 - 20 mg/dL) 19 Creatinine (0.7 - 1.2 mg/dL) 1.0 Estimated GFR (>60 ml/min) > 60 BUN/Creatinine Ratio (7 - 25 %) 19.0 C-Reactive Prot, Quant (<1.0 mg/dL) 9.0 H C-React Prot High Sens (1.0 - 3.0 mg/L) > 15.0 H Hematology CBC w Diff NO MAN DIFF REQ WBC (4.8 - 10.8 /CUMM) 10.2 RBC (4.70 - 6.10 /CUMM) 3.22 L Hgb (14.0 - 18.0 G/DL) 10.7 L Hct (42 - 52 %) 30.7 L MCV (80.0 - 94.0 FL) 95.3 H MCH (27.0 - 31.0 PG) 33.1 H MCHC (33.0 - 37.0 G/DL) 34.7 RDW (11.5 - 14.5 %) 14.2 Plt Count (130 - 400 /CUMM) 249 MPV (7.4 - 10.4 FL) 7.8 Gran % (42.2 - 75.2 %) 72.9 Lymphocytes % (20.5 - 51.1 %) 16.9 L Monocytes % (1.7 - 9.3 %) 8.1 Eosinophils % (0 - 5 %) 1.9 Basophils % (0.0 - 2.0 %) 0.2 Absolute Granulocytes (1.4 - 6.5 /CUMM) 7.5 H Absolute Lymphocytes (1.2 - 3.4 /CUMM) 1.7 Absolute Monocytes (0.10 - 0.60 /CUMM) 0.8 H Absolute Eosinophils (0.0 - 0.7 /CUMM) 0.2 Absolute Basophils (0.0 - 0.2 /CUMM) 0 ESR Westergren (0 - 10 MM) 20 H Last 24 Hours of [place] Results: Patient : YVON RICE Acct: [id number] DR: Nataly Bui MD Birthdate: [birth year] Age/Sex: 72/M Unit: [id number] Loc: 2NB [phone] Status : ADM IN SPEC #: [id number] MARILEE: 03/16/18 STATUS: COMP RECD: 03/16/[address]: Kassie OLMEDO,Shivam Gamboa SOURCE: URINE ROUT ENTR: 03/16/180007 OTHR DR: Kathleen Rodrigues MD SPDESC: URIN CLEAN ORDERED: URINE CULTURE COMMENT: TRIO Procedure Result > URINE CULTURE Final 03/18/18 NO GROWTH AFTER 2 DAYS Recent Imaging Studies: reviewed Assessment/Plan ID Impression: 72-year-old man, status post prostate artery embolism 7 months prior to admission at [facility] for BPH, diagnosed with myasthenia gravis approximately 6 months prior to admission after presenting with bilateral ptosis, treated initially with Prednisone, currently being tapered, and, more recently, with Azathioprine, seen in the emergency room 5 times over the past 4 weeks, initially for congestion, treated with 3 courses of antibiotics with eventual improvement, more recently for abdominal pain and diarrhea, which has also resolved, and diagnosed one day prior to admission with prostatitis, for which he was begun on Doxycycline, admitted 03/16 with recurrent fevers and chills, found to be febrile with a mild leukocytosis. Reported tenderness on exam of his prostate and the questionable right flank tenderness on exam, though he does not report any urinary symptoms. A tickborne infection, such as Lyme disease, considered, though he denies any recent exposure to the outdoors and Lyme screening test negative. Fever curve trending down. ESR wnl; prostate abscess unlikley; improving while treated w/ TMP/SMX for prostatitis. Leukocytosis/resolved. Suggestion: 1. F/U BMP while on Bactrim (increased creatinine and K+ level possible side efects); low K+ diet for now. 2. Contiue to observe off Azathioprine until completing oral abx course 3. Continue Bactrim D #3/. 4. Call if fever.
[2018-03-19 14:37] VITALS: BP 110/62
--- NOTE | 2018-03-20 18:00 | Discharge Summary ---
Hospital Course Allergies: Coded Allergies: cephalexin (From KEFLEX) (HIVES 03/15/18) levofloxacin (HIVES 03/15/18) Discharge Instructions Medications at Discharge Discharge Medications: Stop taking the following medications: Azathioprine (Azathioprine) 50 MG TABLET ORAL TWICE DAILY Qty = 60 Doxycycline Hyclate (Doxycycline Hyclate) 100 MG TABLET ORAL TWICE DAILY Qty = 28 Continue taking these medications: Simvastatin (Simvastatin*) 40 MG TABLET 1 Tablet ORAL Every night Qty = 90 Comments: Last Taken: 03/18/18 Time: 4:30 PM Multivitamin (Multi-Vitamin Daily) 1 EACH TABLET 1 Tablet ORAL Every Day Comments: Last Taken: 03/19/18 Time: 8:00 AM Levothyroxine Sodium (Levothyroxine Sodium) 175 MCG TABLET 1 Tablet ORAL DAILY Qty = 90 Comments: Last Taken: 03/19/18 Time: 6:00 AM Famotidine (Famotidine) 40 MG TABLET 1 Tablet ORAL Every Morning Comments: Last Taken: 03/19/18 Time: 8:00 AM Prednisone (Prednisone) 10 MG TABLET 30 Milligram ORAL DAILY Comments: Last Taken: 03/19/18 Time: 8:00 AM Start taking the following new medications: Sulfamethoxazole/Trimethoprim (Sulfamethoxazole-Tmp Ds Tablet) 800 MG-160 MG TABLET 1 Tablet ORAL TWICE DAILY Qty = 20 No Refills Comments: Last Taken: 03/19/18 Time: 8:00 AM Ibuprofen (Ibuprofen) 400 MG TABLET 400 Milligram ORAL TWICE DAILY Qty = 20 No Refills Comments: Last Taken: 03/19/18 Time: 8:00 AM
== END 2018-03-19 14:33 | DRG 864 ==
LOC: ERH 23:25 → 2NB 03-16 00:50 → ERHI 03-16 00:50 → ENRESERV 03-17 16:40 → 2NB 03-17 16:59 → ENPENDDIS 03-19 12:08 → 2NB 03-19 14:33
PROVIDERS: Emergency Medicine; Preventive Medicine Public Health & General Preventive Medicine; Student in an Organized Health Care Education/Training Program
DX: R50.2 Drug induced fever (principal); G70.00 Myasthenia gravis without (acute) exacerbation; D53.9 Nutritional anemia, unspecified; N41.9 Inflammatory disease of prostate, unspecified; T45.1X5A Adverse effect of antineoplastic and immunosuppressive drugs, initial encounter; F32.9 Major depressive disorder, single episode, unspecified; E78.5 Hyperlipidemia, unspecified; N40.0 Benign prostatic hyperplasia without lower urinary tract symptoms; E03.9 Hypothyroidism, unspecified; R00.0 Tachycardia, unspecified; D72.829 Elevated white blood cell count, unspecified; Z87.891 Personal history of nicotine dependence; Z87.81 Personal history of (healed) traumatic fracture; Z88.1 Allergy status to other antibiotic agents; Z79.52 Long term (current) use of systemic steroids
CPT/HCPCS: 2NBP; 86618; ERO; 36592; 71046; 74177; 81001; 82436; 87040; 87086; 93005; 93010; 96374; 96375; J0131; J1644; J1720; J2405; J7512